=== PATIENT | male | born 1945 | race Caucasian/White ===

== ENCOUNTER 2016-11-11 06:48 | Day surgery (SDC) | payer MEDICARE ==
--- NOTE | 2016-11-08 11:45 | HP ---
ADMISSION DIAGNOSIS: Dysphagia. ANTICIPATED PROCEDURE: EGD, possible dilatation. PAST MEDICAL HISTORY: ALLERGIES: None. MEDICATIONS: Cymbalta, Bumex, lisinopril, prednisone, Zantac. SURGERIES: None recent. REVIEW OF SYSTEMS: Diabetes, heart stents, half of the right lung was removed. Neuropathy. SOCIAL HISTORY: Negative. FAMILY HISTORY: Negative. PHYSICAL EXAMINATION: VITAL SIGNS: Normal. CHEST: Clear. COR: Regular. ABDOMEN: No palpate organomegaly or mass. IMPRESSION: Dysphagia. PLAN: EGD.
[2016-11-11] MEDS ORDERED: DEMEROL 50 MG IJ ONE (06:49)
[2016-11-11] MEDS ORDERED: VERSED 5 MG/5 ML IV ONE (06:49)
[2016-11-11] MEDS ORDERED: Sodium Chloride 0.9% 1000 ML 1,000 ML IV SCH (07:15)
[2016-11-11 07:20] VITALS: BP 132/78; PULSE 73; O2SAT 100
[2016-11-11] MEDS ORDERED: Sodium Chloride 0.9% 10 ML FLUSH Syringe IV PRN (14:54)
--- NOTE | 2016-11-12 07:49 | OP ---
SURGERY DATE/TIME: 11/11/2016917 PREOPERATIVE DIAGNOSIS: Dysphagia. POSTOPERATIVE DIAGNOSIS: Stricture. PROCEDURE: EGD with dilatation. SURGEON: Juan Jose Pete M.D. ANESTHESIA: IVS. COMPLICATIONS: None. CONDITION: Stable. INDICATION: The patient presents with symptoms of dysphagia. DESCRIPTION OF PROCEDURE: Taken to the endoscopy suite. Left lateral decubitus position. Satisfactory sedation provided. At this time the scope introduced. Esophagus is normal down to gastroesophageal junction. There was a size 40 stricture. Fundus, body, antrum satisfactory. Pylorus satisfactory. Duodenal bulb satisfactory. Scope withdrawn. An 18 balloon was placed. It was insufflated to first level and then second level. It seemed to stretch out to 50. It looked nice. The scope is withdrawn. The patient tolerated the procedure satisfactory.
== END 2016-11-11 11:10 | disposition home or self-care (01) ==
LOC: SDC 06:48
PROVIDERS: ATTEND Surgery
PROC: 0D758ZZ Dilation of Esophagus, Via Natural or Artificial Opening Endoscopic (ICD-10-PCS; principal; 2016-11-11)
DX: K22.2 Esophageal obstruction (principal); E11.9 Type 2 diabetes mellitus without complications; Z98.61 Coronary angioplasty status; Z90.2 Acquired absence of lung [part of]; Z79.899 Other long term (current) drug therapy
CPT/HCPCS: 82962; 43249; C1726; J1642; J2175; J2250

== ENCOUNTER 2018-04-05 11:04 | Observation (INO) | payer MEDICARE ==
[2018-04-05] MEDS ORDERED: Sodium Chloride 0.9% 1000 ML 1,000 ML IV SCH (13:45)
[2018-04-05] MEDS: TORAdol 30 mg Injection IV PRN ×2 (13:52→22:16)
[2018-04-05] MEDS: Neurontin 400 MG PO SCH ×2 (15:20→22:15)
--- NOTE | 2018-04-05 15:30 | XRAY ---
Indication: Intractable back pain. Status post fall March 18, 2018. Multiple contiguous axial images obtained through the lumbar spine. Sagittal and coronal reformatted images obtained. Comparison: None Images through the L4-S1 levels slightly degraded by motion artifact. Axial images through the J19-C9-D4 level negative for large disc herniation, spinal canal, or foraminal stenosis. Facets are symmetric. At the L2-L3-L4 levels, there is bilateral foraminal narrowing due to mild broad-based disc bulge. No large central disc herniation or spinal canal stenosis. Facets are symmetric with mild bilateral degenerative facet arthropathy. At the L4-L5 level, there is spinal canal and bilateral foraminal stenosis due to combination of moderate annular disc bulge and moderate bilateral degenerative facet and ligamentum flavum hypertrophy. Mean AP thecal sac diameter is approximately 6 mm. At the L5-S1 level, there is minimal broad-based central disc bulge without spinal canal or foraminal compromise. Mild bilateral degenerative facet hypertrophy. Sagittal and coronal reformatted images demonstrates normal alignment with vertebral body heights and disc spaces maintained. Small superior T11 and L3 Schmorl nodes. Visualized noncontrasted soft tissues demonstrates moderate scattered aortoiliac calcifications. Partially visualized right lung base consolidation presumed effusion. Impression: 1. Multilevel degenerative disc disease as detailed. Greatest extent at the L4-L5 level where there is spinal canal stenosis due to combination of annular disc bulge and degenerative facet/ligament flavum hypertrophy. 2. Negative acute fracture/subluxation. 3. T11 and L3 Schmorl nodes. 4. Incompletely visualized right lung effusion. CT DI 70.97
[2018-04-05] MEDS: Advair Hfa 115/21 Common canister IH SCH (17:18)
[2018-04-05] MEDS ORDERED: NON-FORMULARY ITEM (Pravastatin Sodium [Pravastatin Sodium] 40 MG) PO SCH (22:00)
[2018-04-05] MEDS ORDERED: ZOCOR 20MG PO SCH (22:00)
[2018-04-05] MEDS ORDERED: NON-FORMULARY ITEM (Buspirone Hcl [Buspar] 10 MG) PO SCH (22:00)
[2018-04-05] MEDS ORDERED: INSULIN DETEMIR 50 UNIT SQ SCH (22:00)
[2018-04-05] MEDS ORDERED: NON-FORMULARY ITEM (Duloxetine Hcl [Cymbalta] 60 MG) PO SCH (22:00)
[2018-04-05] MEDS: Lantus Insulin SQ SCH (22:15)
[2018-04-05] MEDS: Pepcid 20 MG PO SCH (22:15)
[2018-04-05] MEDS: BUSPAR 5 MG PO SCH (22:15)
[2018-04-05] MEDS: Coreg 6.25 MG PO SCH (22:15)
[2018-04-05] MEDS: Cymbalta 30 MG Capsule PO SCH (22:15)
--- NOTE | 2018-04-05 22:43 | PCM.HP ---
History of Present Illness - Chief Complaint Chief Complaint: intractable back pain, right sided chest wall pain for 3 days History of Present Illness: is a 73 year old male c/o right side chest pain and intractable back pain. - Review of Systems Constitutional: No Fever, No Chills Eyes: No Symptoms Ears, Nose, & Throat: No Symptoms Respiratory: No Cough, No Short Of Breath Cardiac: No Chest Pain, No Edema, No Syncope Abdominal/Gastrointestinal: No Abdominal Pain, No Nausea, No Vomiting, No Diarrhea Genitourinary Symptoms: No Dysuria Musculoskeletal: Arthralgias, Back Pain, Joint Pain, No Neck Pain Skin: No Rash Neurological: No Dizziness, No Focal Weakness, No Sensory Changes Psychological: No Symptoms Endocrine: No Symptoms Hematologic/Lymphatic: No Symptoms Immunological/Allergic: No Symptoms Medications & Allergies Home Medications: Home Medication List Aspirin 81 mg PO UD 03/03/15 [History Confirmed 04/05/18] Bumetanide 1 mg [Bumex 1 mg] 1 mg PO QAM 03/03/15 [History Confirmed 04/05] Carvedilol 6.25 mg [Coreg 6.25 MG] 6.25 mg PO BID 03/03/15 [History Confirmed 04/05/18] Fentanyl 75Mcg Patch [Duragesic 75 MCG Patch] 75 mcg .ROUTE Q72H 03/03/15 [History Confirmed 04/05/18] Ferrous Fumarate 324 mg PO DAILY 03/03/15 [History Confirmed 04/05/18] Fluticasone/Salmeterol 115/21* [Advair Hfa 115/21 Mcg Inhaler] 21 mcg PO BID 03/03/15 [History Confirmed 04/05/18] Gabapentin 400 mg [Neurontin 400 MG] 800 mg PO TID 03/03/15 [History Confirmed 04/05/18] Insulin Detemir [Levemir Flexpen] 50 units SQ BID 03/03/15 [History Confirmed ] Lisinopril 10 mg [Zestril 10 MG] 5 mg PO UD 03/03/15 [History Confirmed ] Pravastatin Sodium 40 mg PO HS 03/03/15 [History Confirmed 04/05/18] Prednisone 10 mg [Deltasone 10 mg] 10 mg PO DAILY 03/03/15 [History Confirmed 04/05/18] Ranitidine HCl [Zantac] 150 mg PO BID 03/03/15 [History Confirmed 04/05/18] Buspirone HCl [Buspar] 10 mg PO BID 11/03/16 [History Confirmed 04/05/18] Duloxetine HCl [Cymbalta] 60 mg PO BID 11/03/16 [History Confirmed 04/05/18] Docusate Sodium 100 mg [Colace 100 MG] 100 mg PO DAILY 04/05/18 [History Confirmed 04/05/18] Ketorolac Tromethamine [Toradol] 10 mg PO QID #20 tablet 04/06/18 [Rx] Allergies/Adverse Reactions: Allergies Allergy/AdvReac Type Severity Reaction Status Date / Time Penicillins Allergy Unknown Verified 11/11/16 07:20 - Past Medical History Past Medical History: Yes Neurological History: TIA ENT History: No Pertinent History Cardiac History: Congestive Heart Failure Respiratory History: CHF, COPD, Emphysema, Lung Cancer Endocrine Medical History: Diabetes Type II Musculoskelatal History: Arthritis, Degenerative Disk Disease GI Medical History: Esophageal Disorder, GERD, Hernia History: No Pertinent History Pyscho-Social History: Anxiety, Depression Male Reproductive Disorders: No Pertinent History Comment: 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 - Past Surgical History Past Surgical History: Yes Neuro Surgical History: No Pertinent History Cardiac History: Cardiac Stent Respiratory Surgery: Lobectomy GI Surgical History: Cholecystectomy Genitourinary Surgical Hx: No Pertinent History Musculskeletal Surgical Hx: No Pertinent History Male Surgical History: No Pertinent History Other Surgical History: hx of multiple i & D to buttocks - Social History Smoking Status: Former smoker How long have you smoked: 45 YEARS Exposure to second hand smoke: Yes Alcohol: None Drug Use: none Significant Family History: heart disease - Physical Exam Vital Signs: Vital Signs - 24 hr Temp Pulse Resp BP Pulse Ox 04/05/18 20:00 98.5 F 92 H 18 142/71 94 L 04/05/18 18:50 98 04/05/18 17:21 89 18 98 04/05/18 16:00 98.5 F 85 18 117/58 98 04/05/18 12:09 98.4 F 93 H 20 146/80 96 04/05/18 12:05 96 Oxygen-Last 24 hours O2 Percentage 2 Liters = 28% O2 Percentage 2 Liters = 28% O2 Percentage 2 Liters = 28% General Appearance: no apparent distress, alert Neurologic Exam: alert, oriented x 3, cooperative, normal mood/affect, nml cerebellar function, nml station & gait, sensation nml, No motor deficits Eye Exam: PERRL/EOMI, eyes nml inspection Ears, Nose, Throat Exam: normal ENT inspection, TMs normal, pharynx normal, moist mucous membranes Neck Exam: normal inspection, non-tender, supple, full range of motion Respiratory Exam: normal breath sounds, lungs clear, No respiratory distress Cardiovascular Exam: regular rate/rhythm, normal heart sounds, normal peripheral pulses Gastrointestinal/Abdomen Exam: soft, normal bowel sounds, No tenderness, No mass Back Exam: normal inspection, normal range of motion, No CVA tenderness, No vertebral tenderness Extremity Exam: normal inspection, normal range of motion, pelvis stable Skin Exam: normal color, warm, dry, No rash Lymphatic Exam: No adenopathy Results - Labs Lab/Micro Results: Accuchecks Date 04/05/18 Time 16:30 Accucheck Value: 191 Lab Results-Last 24 Hours 04/05/18 Range/Units 13:20 Hemoglobin A1c 6.98 H (4.5-6.0) % Accuchecks Date 04/05/18 Time 16:30 Accucheck Value: 191 - Radiology Impressions Radiology Exams & Impressions: Radiology Procedures Category Date Time Status LUMBAR SPINE W/O [CT] Urgent Exams 04/05/18 13:00 Completed - Other Procedures and Tests Respiratory Therapy 04/05/18 12:14 Oxygen NASAL CANNULA 2.5 lpm 04/05/18 12:15 Respiratory Therapy Assessment DAILY Assessment/Plan (1) Intractable low back pain Status: Acute Assessment & Plan: Last Vital Signs Temp 98.5 F 04/05/18 20:00 Pulse 92 H 04/05/18 20:00 Resp 18 04/05/18 20:00 BP 142/71 04/05/18 20:00 Pulse Ox 94 L 04/05/18 20:00 Allergies Penicillins Allergy (Unknown, Verified 11/11/16 07:20) Active Medications Aspirin (Ecotrin 81 Mg) 81 mg PO [facility] Stop: 05/07/18 09:59 Bumetanide (Bumex 1 Mg) 1 mg PO QAM [facility] Stop: 05/06/18 09:59 Buspirone HCl (Buspar 5 Mg) 10 mg PO BID [facility] Stop: 05/05/18 21:59 Last Admin: 04/05/18 22:15 Dose: 10 mg Carvedilol (Coreg 6.25 Mg) 6.25 mg PO BID [facility] Stop: 05/05/18 21:59 Last Admin: 04/05/18 22:15 Dose: 6.25 mg Docusate Sodium (Colace 100 Mg) 100 mg PO DAILY [facility] Stop: 05/06/18 09:59 Duloxetine HCl (Cymbalta 30 Mg Capsule) 60 mg PO BID [facility] Stop: 05/05/18 21:59 Last Admin: 04/05/18 22:15 Dose: 60 mg Famotidine (Pepcid 20 Mg) 20 mg PO BID [facility] Stop: 05/05/18 21:59 Last Admin: 04/05/18 22:15 Dose: 20 mg Fentanyl (Duragesic 75 Mcg Patch) 75 mcg TOP Q72H [facility] Stop: 04/13/18 08:59 Ferrous Sulfate (Feosol 325 Mg) 325 mg PO DAILY [facility] Stop: 05/06/18 09:59 Gabapentin (Neurontin 400 Mg) 800 mg PO TID [facility] Stop: 05/05/18 14:59 Last Admin: 04/05/18 22:15 Dose: 800 mg Heparin Sodium (Beef Lung) (Heparin Lock Flush 100 Units/Ml 5ml Syringe) 500 units PORT FLUSH PRN PRN PRN Reason: IV PORT FLUSH Stop: 05/05/18 15:11 Sodium Chloride (Sodium Chloride 0.9% 1000 Ml) 1,000 mls @ 30 mls/hr IV .Q24H [facility] Stop: 05/05/18 13:44 Last Admin: 04/05/18 13:52 Dose: 30 mls/hr Insulin Glargine (Lantus Insulin) 50 unit SQ BID [facility] Stop: 05/05/18 21:59 Last Admin: 04/05/18 22:15 Dose: 50 unit Ketorolac Tromethamine (Toradol 30 Mg Injection) 30 mg IV Q8H PRN PRN Reason: PAIN Stop: 04/10/18 13:33 Last Admin: 04/05/18 22:16 Dose: 30 mg Lisinopril (Zestril 10 Mg) 5 mg PO QOD [facility] Stop: 05/06/18 09:59 Prednisone (Deltasone 10 Mg) 10 mg PO DAILY [facility] Stop: 05/06/18 09:59 Fluticasone/Salmeterol (Advair Hfa 115/21 Common Canister*) 2 puff IH BIDRT [facility] Stop: 05/05/18 18:59 Last Admin: 04/05/18 17:18 Dose: 2 puff Simvastatin (Zocor 20mg) 40 mg PO HS [facility] Stop: 05/05/18 21:59 Last Admin: 04/05/18 22:15 Dose: 40 mg Intake & Output 04/05/18 04/06/18 11:59 11:59 Intake Total 1574 Output Total 200 Balance 1374 Weight 98.8 kg Orders 04/05/18 11:39 Place in Observation ROUTINE 04/05/18 12:12 ACCUCHECK [Accucheck] ACHS 04/05/18 12:14 Oxygen NASAL CANNULA 2.5 lpm Pulse Oximetry .spot check 04/05/18 12:15 Respiratory Therapy Assessment DAILY 04/05/18 13:34 KETOROLAC trometh 30 mg Inj [TORAdol 30 mg Injection] 30 mg IV Q8H PRN 04/05/18 13:45 NaCl 0.9% 1000 ml [Sodium Chloride 0.9% 1000 ML] 1,000 ml IV 30 mls/hr 04/05/18 15:00 Gabapentin 400 mg [Neurontin 400 MG] 800 mg PO TID 04/05/18 15:12 Heparin Flush 500 units/5 ml [Heparin Lock Flush 100 Units/ml 5ml Syringe] 500 units PORT FLUSH PRN PRN 04/05/18 19:00 Fluticasone/Salmeterol 115/21 [Advair Hfa 115/21 Common canister*] 2 puff IH BIDRT 04/05/18 22:00 Buspirone HCl 5 mg [Buspar 5 mg] 10 mg PO BID Carvedilol 6.25 mg [Coreg 6.25 MG] 6.25 mg PO BID Duloxetine HCl 30 mg [Cymbalta 30 MG Capsule] 60 mg PO BID Famotidine 20 mg [Pepcid 20 MG] 20 mg PO BID Insulin Glargine [Lantus Insulin] 50 unit SQ BID Simvastatin 20Mg [Zocor 20Mg] 40 mg PO HS 04/05/18 Lunch 1800 Calorie ADA 04/06/18 10:00 Bumetanide 1 mg [Bumex 1 mg] 1 mg PO QAM Docusate Sodium 100 mg [Colace 100 MG] 100 mg PO DAILY Ferrous Sulfate 325 mg [Feosol 325 mg] 325 mg PO DAILY Lisinopril 10 mg [Zestril 10 MG] 5 mg PO QOD Prednisone 10 mg [Deltasone 10 mg] 10 mg PO DAILY 04/07/18 10:00 Aspirin EC 81 mg [Ecotrin 81 mg] 81 mg PO TuFr 04/08/18 09:00 Fentanyl 75Mcg Patch [Duragesic 75 MCG Patch] 75 mcg TOP Q72H Lab Tests 04/05/18 13:20 Hemoglobin A1c 6.98 H Code(s): M54.5 - LOW BACK PAIN (2) Chronic obstructive lung disease Status: Chronic Code(s): J44.9 - CHRONIC OBSTRUCTIVE PULMONARY DISEASE, UNSPECIFIED (3) Diabetes mellitus Status: Chronic Code(s): E11.9 - TYPE 2 DIABETES MELLITUS WITHOUT COMPLICATIONS
[2018-04-05] MEDS: MORPHINE SULFATE 4 MG INJ IV PRN (23:27)
[2018-04-06] MEDS: MORPHINE SULFATE 4 MG INJ IV PRN ×2 (04:59→08:55)
[2018-04-06] MEDS: Advair Hfa 115/21 Common canister IH SCH (05:05)
[2018-04-06] MEDS: TORAdol 30 mg Injection IV PRN (06:35)
[2018-04-06] MEDS: BUSPAR 5 MG PO SCH (08:51)
[2018-04-06] MEDS: Cymbalta 30 MG Capsule PO SCH (08:52)
[2018-04-06] MEDS: Coreg 6.25 MG PO SCH (08:52)
[2018-04-06] MEDS: Pepcid 20 MG PO SCH (08:52)
[2018-04-06] MEDS: Neurontin 400 MG PO SCH ×2 (08:53→15:12)
[2018-04-06] MEDS: Lantus Insulin SQ SCH (08:54)
[2018-04-06] MEDS ORDERED: Zestril 10 MG PO SCH (10:00)
[2018-04-06] MEDS ORDERED: FEOSOL 325 MG PO SCH (10:00)
[2018-04-06] MEDS ORDERED: DELTASONE 10 MG PO SCH (10:00)
[2018-04-06] MEDS ORDERED: FERROUS FUMARATE 324 MG PO SCH (10:00)
[2018-04-06] MEDS ORDERED: BUMEX 1 MG PO SCH (10:00)
[2018-04-06] MEDS ORDERED: Colace 100 MG PO SCH (10:00)
[2018-04-06 11:47] VITALS: BP 131/63; PULSE 86; O2SAT 100
[2018-04-06] MEDS ORDERED: TORAdol 30 mg Injection IV SCH (14:00)
[2018-04-07] MEDS ORDERED: ECOTRIN 81 MG PO SCH (10:00)
[2018-04-08] MEDS ORDERED: Duragesic 75 MCG Patch TOP SCH (09:00)
== END 2018-04-06 15:55 | disposition home or self-care (01) ==
LOC: MED SURG 11:39
PROVIDERS: ADMIT General Practice; ATTEND General Practice
DX: M54.5 Low back pain (principal); J44.9 Chronic obstructive pulmonary disease, unspecified; E11.9 Type 2 diabetes mellitus without complications
CPT/HCPCS: 36415; 72131; 82962; 83036; 94640; 94760; G0378; J1642; J1885; J2270; A9270-GY

== ENCOUNTER 2019-01-03 09:31 | Day surgery (SDC) | payer MEDICARE ==
[2012-02-05 14:53] VITALS: BP 114/73
[2019-01-03] MEDS ORDERED: Xylocaine 1% Vial 30 ML PF IJ ONE (09:32)
[2019-01-03] MEDS ORDERED: Sodium Chloride 0.9(Preservative Free) 10 ML IJ ONE (09:32)
[2019-01-03] MEDS ORDERED: Depo-Medrol 40 MG/ML IM ONE (09:32)
[2019-01-03] MEDS ORDERED: Ketamine HCl 50 MG/ML ONE (11:24)
[2019-01-03] MEDS ORDERED: DIPRIVAN 200 MG/20 ML IV ONE (11:24)
--- NOTE | 2019-01-03 13:34 | XRAY ---
Indication: Thoracic LUCILLE. Intraoperative fluoroscopy was provided for 32 seconds. 2 digital spot images submitted for interpretation demonstrates midline needle tip projecting just posterior to unknown thoracic segment. Small amount of contrast injected for needle tip placement. Correlate with intraoperative findings/report.
--- NOTE | 2019-01-03 14:27 | XRAY ---
32 seconds of fluoroscopy was used in surgery for a thoracic LUCILLE.
[2019-01-03] MEDS ORDERED: Lactated Ringers 1,000 ML IV ONE (14:48)
== END 2019-01-03 12:00 | disposition home or self-care (01) ==
LOC: SDC-PAIN 09:31
PROVIDERS: ATTEND Psychiatry & Neurology Pain Medicine
DX: M54.12 Radiculopathy, cervical region (principal); E11.9 Type 2 diabetes mellitus without complications; I10 Essential (primary) hypertension; J44.9 Chronic obstructive pulmonary disease, unspecified; K44.9 Diaphragmatic hernia without obstruction or gangrene; G47.30 Sleep apnea, unspecified; Z85.118 Personal history of other malignant neoplasm of bronchus and lung; Z79.899 Other long term (current) drug therapy
CPT/HCPCS: 62321; 72072; 77003; 82962; J1030; J1642; J2001; J2704; Q9966

== ENCOUNTER 2019-01-24 10:27 | Day surgery (SDC) | payer MEDICARE ==
[2012-02-05 14:53] VITALS: BP 114/73
[2019-01-24] MEDS ORDERED: Depo-Medrol 40 MG/ML IM ONE (10:28)
[2019-01-24] MEDS ORDERED: XYLOCAINE 1% HCL 20 ML MDV IJ ONE (10:28)
[2019-01-24] MEDS ORDERED: Xylocaine-Mpf 2% 5 Ml Vial IJ ONE (10:28)
[2019-01-24] MEDS ORDERED: DIPRIVAN 200 MG/20 ML IV ONE (11:52)
[2019-01-24] MEDS ORDERED: Ketamine HCl 50 MG/ML ONE (11:53)
--- NOTE | 2019-01-24 13:09 | XRAY ---
Indication: Bilateral L3-S1 MBB. Intraoperative fluoroscopy was provided for 8 seconds. Single digital spot image submitted for interpretation demonstrates posterior needle tips projecting over the expected course of the left and right L3-S1 nerve roots. Correlate with intraoperative findings/report.
--- NOTE | 2019-01-24 13:11 | XRAY ---
8 seconds fluoroscopy time in surgery for bilateral L3-S1 MBB.
[2019-01-24] MEDS ORDERED: Lactated Ringers 1,000 ML IV ONE (14:33)
== END 2019-01-24 12:05 | disposition home or self-care (01) ==
LOC: SDC-PAIN 10:27
PROVIDERS: ATTEND Psychiatry & Neurology Pain Medicine
DX: M47.816 Spondylosis without myelopathy or radiculopathy, lumbar region (principal); E11.9 Type 2 diabetes mellitus without complications; I10 Essential (primary) hypertension; J44.9 Chronic obstructive pulmonary disease, unspecified; G47.30 Sleep apnea, unspecified; K44.9 Diaphragmatic hernia without obstruction or gangrene; Z85.118 Personal history of other malignant neoplasm of bronchus and lung; Z79.899 Other long term (current) drug therapy
CPT/HCPCS: 64493; 64494; 64495; 72020; 77002; 82962; J1030; J1642; J2704

== ENCOUNTER 2019-02-21 07:31 | Day surgery (SDC) | payer MEDICARE ==
[2012-02-05 14:53] VITALS: BP 114/73
[2019-02-21] MEDS ORDERED: Marcaine 0.5% SDV 10 ML IJ ONE (07:32)
[2019-02-21] MEDS ORDERED: Depo-Medrol 40 MG/ML IM ONE (07:32)
[2019-02-21] MEDS ORDERED: DIPRIVAN 200 MG/20 ML IV ONE (09:51)
[2019-02-21] MEDS ORDERED: Ketamine HCl 50 MG/ML ONE (09:52)
--- NOTE | 2019-02-21 11:10 | XRAY ---
Indication: Bilateral L3-S1 MBB. Intraoperative fluoroscopy was provided for 14 seconds. Single digital spot image submitted for interpretation demonstrates posterior needle tips projecting over the expected course of the left and right L3-S1 nerve roots. Correlate with intraoperative findings/report.
--- NOTE | 2019-02-21 12:37 | XRAY ---
14 seconds fluoroscopy time in surgery for bilateral L3-S1 MBB.
[2019-02-21] MEDS ORDERED: Lactated Ringers 1,000 ML IV ONE (16:16)
== END 2019-02-21 10:15 | disposition home or self-care (01) ==
LOC: SDC-PAIN 07:31
PROVIDERS: ATTEND Psychiatry & Neurology Pain Medicine
DX: M47.816 Spondylosis without myelopathy or radiculopathy, lumbar region (principal); E11.9 Type 2 diabetes mellitus without complications; I10 Essential (primary) hypertension; J44.9 Chronic obstructive pulmonary disease, unspecified; G47.30 Sleep apnea, unspecified; K44.9 Diaphragmatic hernia without obstruction or gangrene; F41.8 Other specified anxiety disorders; Z79.899 Other long term (current) drug therapy
CPT/HCPCS: 72020; 77002; J1030; J1642; J2704

== ENCOUNTER → 2019-03-21 | Day surgery (SDC) | payer MEDICARE ==
[2012-02-05 14:53] VITALS: BP 114/73
== END | disposition home or self-care (01) ==
LOC: SDC-PAIN 11:07
PROVIDERS: ATTEND Psychiatry & Neurology Pain Medicine
DX: Z53.09 Procedure and treatment not carried out because of other contraindication (principal)

== ENCOUNTER 2019-04-18 07:41 | Day surgery (SDC) | payer MEDICARE ==
[2012-02-05 14:53] VITALS: BP 114/73
[2019-04-18] MEDS ORDERED: Xylocaine 1% Vial 30 ML PF IJ ONE (07:42)
[2019-04-18] MEDS ORDERED: Depo-Medrol 40 MG/ML IM ONE (07:42)
[2019-04-18] MEDS ORDERED: Marcaine 0.5% SDV 10 ML IJ ONE (07:42)
[2019-04-18] MEDS ORDERED: DIPRIVAN 200 MG/20 ML IV ONE (08:07)
[2019-04-18] MEDS ORDERED: Ketamine HCl 50 MG/ML ONE (08:11)
--- NOTE | 2019-04-18 10:54 | XRAY ---
Indication: Left L4-S1 RFA. Intraoperative fluoroscopy was provided for 16 seconds. 3 digital spot images submitted for interpretation demonstrates posterior needle tips projecting over the expected course of the left L4-S1 nerve roots. Correlate with intraoperative findings/report.
--- NOTE | 2019-04-18 11:06 | XRAY ---
16 seconds of fluoroscopy was used in surgery for a left L4-L5 and L5-S1 RFA.
[2019-04-18] MEDS ORDERED: Lactated Ringers 1,000 ML IV ONE (15:26)
== END 2019-04-18 09:45 | disposition home or self-care (01) ==
LOC: SDC-PAIN 07:41
PROVIDERS: ATTEND Psychiatry & Neurology Pain Medicine
DX: M47.816 Spondylosis without myelopathy or radiculopathy, lumbar region (principal); E11.9 Type 2 diabetes mellitus without complications; I10 Essential (primary) hypertension; J44.9 Chronic obstructive pulmonary disease, unspecified; K44.9 Diaphragmatic hernia without obstruction or gangrene; G47.30 Sleep apnea, unspecified; F41.8 Other specified anxiety disorders; Z79.899 Other long term (current) drug therapy; Z85.118 Personal history of other malignant neoplasm of bronchus and lung
CPT/HCPCS: 64635; 64636; 72100; 77002; 82962; 99100; J1030; J1642; J2001; J2704

== ENCOUNTER 2019-05-02 07:42 | Day surgery (SDC) | payer MEDICARE ==
[2012-02-05 14:53] VITALS: BP 114/73
[2019-05-02] MEDS ORDERED: Marcaine 0.5% SDV 10 ML IJ ONE (07:43)
[2019-05-02] MEDS ORDERED: Xylocaine 1% Vial 30 ML PF IJ ONE (07:43)
[2019-05-02] MEDS ORDERED: Depo-Medrol 40 MG/ML IM ONE (07:43)
[2019-05-02] MEDS ORDERED: DIPRIVAN 200 MG/20 ML IV ONE (09:01)
[2019-05-02] MEDS ORDERED: Ketamine HCl 50 MG/ML ONE (09:02)
--- NOTE | 2019-05-02 12:01 | XRAY ---
Indication: Right L4-S1 RFA. Intraoperative fluoroscopy was provided for 22 seconds. 3 digital spot images submitted for interpretation demonstrates posterior needle tips projecting over the expected course of the right L4-S1 nerve root. Correlate with intraoperative findings/report.
--- NOTE | 2019-05-02 12:24 | XRAY ---
22 seconds fluoroscopy time in surgery for right L4-S1 transforaminal LUCILLE.
[2019-05-02] MEDS ORDERED: Lactated Ringers 1,000 ML IV ONE (15:38)
== END 2019-05-02 09:35 | disposition home or self-care (01) ==
LOC: SDC-PAIN 07:42
PROVIDERS: ATTEND Psychiatry & Neurology Pain Medicine
DX: M47.816 Spondylosis without myelopathy or radiculopathy, lumbar region (principal); M47.817 Spondylosis without myelopathy or radiculopathy, lumbosacral region; E11.9 Type 2 diabetes mellitus without complications; I10 Essential (primary) hypertension; J44.9 Chronic obstructive pulmonary disease, unspecified; K44.9 Diaphragmatic hernia without obstruction or gangrene; G47.30 Sleep apnea, unspecified; Z79.899 Other long term (current) drug therapy
CPT/HCPCS: 64635; 64636; 72100; 77002; 82962; 99100; J1030; J1642; J2001; J2704

== ENCOUNTER 2019-05-30 07:42 | Day surgery (SDC) | payer MEDICARE ==
[2012-02-05 14:53] VITALS: BP 114/73
[2019-05-30] MEDS ORDERED: Xylocaine-Mpf 2% 5 Ml Vial IJ ONE (07:43)
[2019-05-30] MEDS ORDERED: Depo-Medrol 40 MG/ML IM ONE (07:43)
[2019-05-30] MEDS ORDERED: DIPRIVAN 200 MG/20 ML IV ONE (09:25)
[2019-05-30] MEDS ORDERED: Ketamine HCl 50 MG/ML ONE (09:25)
--- NOTE | 2019-05-30 10:40 | XRAY ---
Indication: Bilateral T9-T12 MBB. Intraoperative fluoroscopy was provided for 8 seconds. Single digital spot image submitted for interpretation demonstrates posterior needle tips projecting over the expected course of the left and right T9-T12 nerve roots. Correlate with intraoperative findings/report.
--- NOTE | 2019-05-30 10:44 | XRAY ---
8 seconds fluoroscopy time in surgery for bilateral T9-T12 MBB.
[2019-05-30] MEDS ORDERED: Lactated Ringers 1,000 ML IV ONE (13:37)
== END 2019-05-30 09:55 | disposition home or self-care (01) ==
LOC: SDC-PAIN 07:42
PROVIDERS: ATTEND Psychiatry & Neurology Pain Medicine
DX: M47.814 Spondylosis without myelopathy or radiculopathy, thoracic region (principal); E11.9 Type 2 diabetes mellitus without complications; I10 Essential (primary) hypertension; J44.9 Chronic obstructive pulmonary disease, unspecified; Z85.118 Personal history of other malignant neoplasm of bronchus and lung; G47.30 Sleep apnea, unspecified; K44.9 Diaphragmatic hernia without obstruction or gangrene; Z79.899 Other long term (current) drug therapy
CPT/HCPCS: 64490; 64491; 64492; 72020; 77002; 82962; J1030; J1642; J2704

== ENCOUNTER 2019-08-15 08:51 | Day surgery (SDC) | payer MEDICARE ==
[2012-02-05 14:53] VITALS: BP 114/73
[2019-08-15] MEDS ORDERED: Depo-Medrol 40 MG/ML IM ONE (08:52)
[2019-08-15] MEDS ORDERED: Marcaine 0.5% SDV 10 ML IJ ONE (08:52)
[2019-08-15] MEDS ORDERED: DIPRIVAN 200 MG/20 ML IV ONE (10:42)
[2019-08-15] MEDS ORDERED: Ketamine HCl 50 MG/ML ONE (10:42)
--- NOTE | 2019-08-15 11:52 | XRAY ---
Indication: Bilateral T9-T12 MBB. Intraoperative fluoroscopy was provided for 9 seconds. Single digital spot image submitted for interpretation demonstrates posterior needle tips projecting over the expected course the left and right T9-T12 nerve roots. Correlate with intraoperative findings/report.
--- NOTE | 2019-08-15 11:57 | XRAY ---
9 seconds fluoroscopy time in surgery for bilateral T9-T12 MBB.
[2019-08-15] MEDS ORDERED: Lactated Ringers 1,000 ML IV ONE (14:31)
== END 2019-08-15 11:08 | disposition home or self-care (01) ==
LOC: SDC-PAIN 08:51
PROVIDERS: ATTEND Psychiatry & Neurology Pain Medicine
DX: M47.814 Spondylosis without myelopathy or radiculopathy, thoracic region (principal); E11.9 Type 2 diabetes mellitus without complications; I10 Essential (primary) hypertension; J44.9 Chronic obstructive pulmonary disease, unspecified; G47.30 Sleep apnea, unspecified; K44.9 Diaphragmatic hernia without obstruction or gangrene; Z85.118 Personal history of other malignant neoplasm of bronchus and lung
CPT/HCPCS: 64490; 64491; 64492; 72020; 77002; 82962; J1030; J1642; J2704

== ENCOUNTER 2019-09-26 10:24 | Day surgery (SDC) | payer MEDICARE ==
[2012-02-05 14:53] VITALS: BP 114/73
[2019-09-26] MEDS ORDERED: Depo-Medrol 40 MG/ML IM ONE (10:25)
[2019-09-26] MEDS ORDERED: Xylocaine 1% Vial 30 ML PF IJ ONE (10:25)
[2019-09-26] MEDS ORDERED: Marcaine 0.5% SDV 10 ML IM ONE (10:25)
[2019-09-26] MEDS ORDERED: Ketamine HCl 50 MG/ML ONE (11:22)
[2019-09-26] MEDS ORDERED: DIPRIVAN 200 MG/20 ML IV ONE (11:22)
--- NOTE | 2019-09-26 12:35 | XRAY ---
Indication: Left T9-T12 RFA. Intraoperative fluoroscopy was provided for 32 seconds. 3 digital spot images submitted for interpretation demonstrates posterior needle tips projecting over the presumed left T9-T12 nerve roots. Correlate with intraoperative findings/report.
--- NOTE | 2019-09-26 12:37 | XRAY ---
32 seconds fluoroscopy time in surgery for left T9-T12 RFA.
[2019-09-26] MEDS ORDERED: Lactated Ringers 1,000 ML IV ONE (14:53)
== END 2019-09-26 11:55 | disposition home or self-care (01) ==
LOC: SDC-PAIN 10:24
PROVIDERS: ATTEND Psychiatry & Neurology Pain Medicine
DX: M47.814 Spondylosis without myelopathy or radiculopathy, thoracic region (principal); E11.9 Type 2 diabetes mellitus without complications; Z79.4 Long term (current) use of insulin; I10 Essential (primary) hypertension; Z85.118 Personal history of other malignant neoplasm of bronchus and lung; G47.30 Sleep apnea, unspecified; Z79.899 Other long term (current) drug therapy
CPT/HCPCS: 64633; 64634; 72072; 77002; 82962; 99100; J1030; J1642; J2001; J2704

== ENCOUNTER 2020-07-23 08:11 | Day surgery (SDC) | payer MEDICARE ==
[2012-02-05 14:53] VITALS: BP 114/73
[2020-07-23] MEDS ORDERED: BUPIVACAINE 0.5% VIAL IJ ONE (08:12)
[2020-07-23] MEDS ORDERED: D50W 50 ml Abboject IV ONE (08:12)
[2020-07-23] MEDS ORDERED: Depo-Medrol 40 MG/ML IM ONE (08:12)
[2020-07-23] MEDS ORDERED: DIPRIVAN 200 MG/20 ML IV ONE (09:55)
--- NOTE | 2020-07-23 11:00 | XRAY ---
Indication: Bilateral L4-S1 MBB. Intraoperative fluoroscopy provided for 10 seconds. Single digital spot image submitted for interpretation demonstrates posterior needle tips projecting over the expected left and right L4-S1 nerve roots. Correlate with intraoperative findings/report.
--- NOTE | 2020-07-23 11:34 | XRAY ---
10 seconds fluoroscopy time in surgery for bilateral L4-S1 MBB.
[2020-07-23] MEDS ORDERED: Lactated Ringers 1,000 ML IV ONE (16:28)
== END 2020-07-23 10:24 | disposition home or self-care (01) ==
LOC: SDC-PAIN 08:11
PROVIDERS: ATTEND Psychiatry & Neurology Pain Medicine
DX: M47.816 Spondylosis without myelopathy or radiculopathy, lumbar region (principal); E11.9 Type 2 diabetes mellitus without complications; Z79.4 Long term (current) use of insulin; I10 Essential (primary) hypertension; J44.9 Chronic obstructive pulmonary disease, unspecified; K44.9 Diaphragmatic hernia without obstruction or gangrene; G47.30 Sleep apnea, unspecified; Z85.118 Personal history of other malignant neoplasm of bronchus and lung; Z79.899 Other long term (current) drug therapy
CPT/HCPCS: 64493; 64494; 72020; 77002; 82947; J1030; J1642; J2704

== ENCOUNTER 2020-08-13 08:43 | Day surgery (SDC) | payer MEDICARE ==
[2012-02-05 14:53] VITALS: BP 114/73
[2020-08-13] MEDS ORDERED: Depo-Medrol 40 MG/ML IM ONE (08:44)
[2020-08-13] MEDS ORDERED: BUPIVACAINE 0.5% VIAL IJ ONE (08:44)
[2020-08-13] MEDS ORDERED: DIPRIVAN 200 MG/20 ML IV ONE (10:12)
[2020-08-13] MEDS ORDERED: Lactated Ringers 1,000 ML IV ONE (16:29)
--- NOTE | 2020-08-13 17:39 | XRAY ---
9 seconds of fluoroscopy was used in surgery for a bilateral L4-L5, L5-S1 MBB.
== END 2020-08-13 10:38 | disposition home or self-care (01) ==
LOC: SDC-PAIN 08:43
PROVIDERS: ATTEND Psychiatry & Neurology Pain Medicine
DX: M47.816 Spondylosis without myelopathy or radiculopathy, lumbar region (principal); E11.9 Type 2 diabetes mellitus without complications; Z79.4 Long term (current) use of insulin; I10 Essential (primary) hypertension; J44.9 Chronic obstructive pulmonary disease, unspecified; K44.9 Diaphragmatic hernia without obstruction or gangrene; G47.30 Sleep apnea, unspecified; Z85.118 Personal history of other malignant neoplasm of bronchus and lung; Z79.899 Other long term (current) drug therapy
CPT/HCPCS: 64493; 64494; 72020; 77002; 82947; J1030; J1642; J2704

== ENCOUNTER 2020-09-03 08:05 | Day surgery (SDC) | payer MEDICARE ==
[2012-02-05 14:53] VITALS: BP 114/73
[2020-09-03] MEDS ORDERED: BUPIVACAINE 0.5% VIAL IJ ONE (08:06)
[2020-09-03] MEDS ORDERED: Xylocaine 1% Vial 30 ML PF IJ ONE (08:06)
[2020-09-03] MEDS ORDERED: Depo-Medrol 40 MG/ML IM ONE (08:06)
[2020-09-03] MEDS ORDERED: DIPRIVAN 200 MG/20 ML IV ONE (09:11)
[2020-09-03] MEDS ORDERED: D50W 50 ml Abboject IV ONE (09:15)
[2020-09-03] MEDS ORDERED: Dextrose 5%/Water IV Soln. 50 ML 50 ML IV ONE (09:30)
--- NOTE | 2020-09-03 10:40 | XRAY ---
Indication: Left L4-S1 RFA. Intraoperative fluoroscopy provided for 37 seconds. 3 digital spot images submitted for interpretation demonstrates posterior needle tips projecting over the expected left L4-S1 nerve roots. Correlate with intraoperative findings/report.
--- NOTE | 2020-09-03 12:12 | XRAY ---
37 seconds fluoroscopy time in surgery for left L4-S1 RFA.
[2020-09-03] MEDS ORDERED: Lactated Ringers 1,000 ML IV ONE (15:54)
== END 2020-09-03 09:55 | disposition home or self-care (01) ==
LOC: SDC-PAIN 08:05
PROVIDERS: ATTEND Psychiatry & Neurology Pain Medicine
DX: M47.816 Spondylosis without myelopathy or radiculopathy, lumbar region (principal); E11.9 Type 2 diabetes mellitus without complications; I10 Essential (primary) hypertension; I50.9 Heart failure, unspecified; J44.9 Chronic obstructive pulmonary disease, unspecified; M19.90 Unspecified osteoarthritis, unspecified site; G47.30 Sleep apnea, unspecified; C34.90 Malignant neoplasm of unspecified part of unspecified bronchus or lung; Z79.899 Other long term (current) drug therapy
CPT/HCPCS: 64635; 64636; 72100; 77002; 82947; 99100; J1030; J1642; J2001; J2704

== ENCOUNTER 2020-09-10 09:26 | Day surgery (SDC) | payer MEDICARE ==
[2012-02-05 14:53] VITALS: BP 114/73
[2020-09-10] MEDS ORDERED: Xylocaine 1% Vial 30 ML PF IJ ONE (09:27)
[2020-09-10] MEDS ORDERED: BUPIVACAINE 0.5% VIAL IJ ONE (09:27)
[2020-09-10] MEDS ORDERED: Depo-Medrol 40 MG/ML IM ONE (09:27)
[2020-09-10] MEDS ORDERED: DIPRIVAN 200 MG/20 ML IV ONE (10:31)
--- NOTE | 2020-09-10 11:29 | XRAY ---
Indication: Right L4-S1 RFA. Intraoperative fluoroscopy provided for 22 seconds. 2 digital spot images submitted for interpretation demonstrates posterior needle tips projecting over the expected right L4-S1 nerve roots. Correlate with intraoperative findings/report.
--- NOTE | 2020-09-10 13:01 | XRAY ---
22 seconds of fluoroscopy was used in surgery for a right L4-L5, L5-S1 RFA.
[2020-09-10] MEDS ORDERED: Lactated Ringers 1,000 ML IV ONE (15:40)
== END 2020-09-10 11:12 | disposition home or self-care (01) ==
LOC: SDC-PAIN 09:26
PROVIDERS: ATTEND Psychiatry & Neurology Pain Medicine
DX: M47.816 Spondylosis without myelopathy or radiculopathy, lumbar region (principal); F41.9 Anxiety disorder, unspecified; F32.9 Major depressive disorder, single episode, unspecified; M19.90 Unspecified osteoarthritis, unspecified site; E11.9 Type 2 diabetes mellitus without complications; I10 Essential (primary) hypertension; I50.9 Heart failure, unspecified; J44.9 Chronic obstructive pulmonary disease, unspecified; G47.30 Sleep apnea, unspecified; Z79.899 Other long term (current) drug therapy
CPT/HCPCS: 64635; 64636; 72100; 77002; 82947; 99100; J1030; J1642; J2001; J2704

== ENCOUNTER 2020-10-05 09:44 | Observation (INO) | payer MEDICARE ==
[2020-10-05] MEDS ORDERED: DUONEB 0.5-3 MG/3 ml Neb IH ONE ×2 (10:06→10:13)
--- NOTE | 2020-10-05 10:10 | ERPHSYRPT ---
- History of Present Illness Time Seen by Provider: 10/05/20 10:06 Source: patient, family Exam Limitations: no limitations Physician History: Pt is COPD pt with more acute SOB and now thinking pneumonia. also on lasix for heart. Timing/Duration: hour(s) Severity of Dyspnea-Max: severe Severity of Dyspnea-Current: severe Possible Cause: frequent episodes Associated Symptoms: constant, cough, fever Allergies/Adverse Reactions: Penicillins Allergy (Unknown, Verified 11/11/16 07:20) Home Medications: Aspirin 81 mg PO UD 03/03/15 [History] Bumetanide 1 mg [Bumex 1 mg] 1 mg PO QAM 03/03/15 [History] Carvedilol 6.25 mg [Coreg 6.25 MG] 6.25 mg PO BID 03/03/15 [History] Fentanyl 75Mcg Patch [Duragesic 75 MCG Patch] 75 mcg .ROUTE Q72H 03/03/15 [History] Ferrous Fumarate 324 mg PO DAILY 03/03/15 [History] Fluticasone/Salmeterol 115/21* [Advair Hfa 115/21 Mcg Inhaler] 21 mcg PO BID 03/03/15 [History] Gabapentin 400 mg [Neurontin 400 MG] 800 mg PO TID 03/03/15 [History] Insulin Detemir [Levemir Flexpen] 50 units SQ BID 03/03/15 [History] Lisinopril 10 mg [Zestril 10 MG] 5 mg PO UD 03/03/15 [History] Pravastatin Sodium 40 mg PO HS 03/03/15 [History] Prednisone 10 mg [Deltasone 10 mg] 10 mg PO DAILY 03/03/15 [History] Ranitidine HCl [Zantac] 150 mg PO BID 03/03/15 [History] Buspirone HCl [Buspar] 10 mg PO BID 11/03/16 [History] Duloxetine HCl [Cymbalta] 60 mg PO BID 11/03/16 [History] Docusate Sodium 100 mg [Colace 100 MG] 100 mg PO DAILY 04/05/18 [History] Hx Tetanus, Diphtheria Vaccination/Date Given: Yes Hx Influenza Vaccination/Date Given: Yes (2011) Hx Pneumococcal Vaccination/Date Given: Yes (2012) - Review of Systems Constitutional: Fever Eyes: No Symptoms Ears, Nose, & Throat: No Symptoms Respiratory: Dyspnea Abdominal/Gastrointestinal: No Symptoms Genitourinary Symptoms: No Symptoms Musculoskeletal: No Symptoms Skin: No Symptoms Neurological: No Symptoms Psychological: No Symptoms Endocrine: No Symptoms Hematologic/Lymphatic: No Symptoms Immunological/Allergic: No Symptoms - Past Medical History Pertinent Past Medical History: Yes Neurological History: TIA ENT History: No Pertinent History Cardiac History: Congestive Heart Failure Respiratory History: CHF, COPD, Emphysema, Lung Cancer Endocrine Medical History: Diabetes Type II Musculoskeletal History: Arthritis, Degenerative Disk Disease GI Medical History: Esophageal Disorder, GERD, Hernia History: No Pertinent History Psycho-Social History: Anxiety, Depression Male Reproductive Disorders: No Pertinent History Other Medical History: 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 - Past Surgical History Past Surgical History: Yes Neuro Surgical History: No Pertinent History Cardiac: Cardiac Stent Respiratory: Lobectomy Gastrointestinal: Cholecystectomy Genitourinary: No Pertinent History Musculoskeletal: No Pertinent History Male Surgical History: No Pertinent History Other Surgical History: hx of multiple i & D to buttocks - Social History Smoking Status: Former smoker How long have you smoked: 45 YEARS Exposure to second hand smoke: Yes Drug Use: none Patient Lives Alone: No Significant Family History: heart disease - Nursing Vital Signs Nursing Vital Signs: Initial Vital Signs Temperature 110.5 F 10/05/20 10:00 Pulse Rate 100 H 10/05/20 10:00 Respiratory Rate 28 H 10/05/20 10:00 Blood Pressure 132/74 10/05/20 10:00 O2 Sat by Pulse Oximetry 98 10/05/20 10:00 Pain Scale Pain Intensity 6 - Physical Exam General Appearance: no apparent distress, alert Eye Exam: PERRL/EOMI Neck Exam: normal inspection, supple Respiratory Exam: airway intact, diminished breath sounds Cardiovascular/Chest Exam: normal heart sounds, regular rate/rhythm Abdominal/Gastrointestinal Exam: soft, No tenderness, No distention, No mass Extremity Exam: non-tender, normal range of motion, normal inspection, no calf tenderness, no pedal edema Peripheral Pulses Exam: carotid (R): 2+, carotid (L): 2+, femoral (R): 2+, femoral (L): 2+, dorsalis-pedis (R): 2+, dorsalis-pedis (L): 2+ Neurologic Exam: alert, oriented x 3, cooperative, hairspring setter II-XII nml as tested, sensation nml, No motor deficits Skin Exam: normal color, warm, No dry SpO2 Interpretation: hypoxic - Course Nursing assessment & vital signs reviewed: Yes EKG Interpreted by Me: Sinus Tach, Non-specific ST Changes Ordered Tests: Active Orders 24 hr Category Date Time Status [employer] STAT Care 10/05/20 10:13 Active EKG-ER Only STAT Care 10/05/20 10:13 Active IV Insertion STAT Care 10/05/20 10:13 Active Pulse Oximetry (ED) STAT Care 10/05/20 10:13 Active CHEST 1 VIEW (PORTABLE) Stat Exams 10/05/20 10:12 Taken CBC W DIFF Stat Lab 10/05/20 10:20 Completed CMP Stat Lab 10/05/20 10:20 Completed INFLUENZA A+B KAMILLE Stat Lab 10/05/20 10:20 Completed NT PRO BNP Stat Lab 10/05/20 10:20 Completed TROPONIN Q3H Lab 10/05/20 10:20 Completed TROPONIN Q3H Lab 10/05/20 12:58 Completed TROPONIN Q3H Lab 10/05/20 16:15 Ordered TROPONIN Q3H Lab 10/05/20 19:15 Ordered TROPONIN Q3H Lab 10/05/20 22:15 Ordered UA W/RFX UR CULTURE Stat Lab 10/05/20 12:34 Completed VENOUS BLOOD GAS Stat Lab 10/05/20 11:05 Completed BiPap/CPAP STAT RT 10/05/20 10:16 Active Respiratory Therapy Assessment DAILY RT 10/05/20 10:37 Completed Medication Summary Generic Name Dose Route Start Last Admin Trade Name Freq PRN Reason Stop Dose Admin Sodium Chloride 1,000 mls @ 50 mls/hr 10/05/20 10:15 10/05/20 10:40 Sodium Chloride 0.9% 1000 Ml IV 11/04/20 10:14 50 mls/hr .Q20H REZA Administration Discontinued Medications Generic Name Dose Route Start Last Admin Trade Name Freq PRN Reason Stop Dose Admin Albuterol/Ipratropium Confirm 10/05/20 10:06 Duoneb 0.5-3 Mg/3 Ml Neb Administered 10/05/20 10:07 Dose 3 ml IH .STK-MED ONE Albuterol/Ipratropium 3 ml 10/05/20 10:13 10/05/20 10:25 Duoneb 0.5-3 Mg/3 Ml Neb IH 10/05/20 10:14 3 ml STAT ONE Administration Levofloxacin/Dextrose 750 mg in 150 mls @ 100 mls/hr 10/05/20 10:13 10/05/20 12:16 Levofloxacin 750mg/150ml D5w IV 10/05/20 11:42 Infused STAT STA Infusion Levofloxacin/Dextrose Confirm 10/05/20 10:39 Levofloxacin 750mg/150ml D5w Administered 10/05/20 10:40 Dose 750 mg in 150 mls @ ud IV .STK-MED ONE Methylprednisolone Sodium Succinate 125 mg 10/05/20 10:13 10/05/20 10:40 Solu-Medrol 125 Mg IV 10/05/20 10:14 125 mg STAT ONE Administration Methylprednisolone Sodium Succinate Confirm 10/05/20 10:39 Solu-Medrol 125 Mg Administered 10/05/20 10:40 Dose 125 mg .ROUTE .STK-MED ONE Lab/Rad Data: Laboratory Result Diagrams 10/05/20 10:20 10/05/20 10:20 Laboratory Results 10/05/20 10/05/20 10/05/20 Range/Units 12:58 12:34 11:05 WBC (4.0-10.5) K/mm3 RBC (4.1-5.6) M/mm3 Hgb (12.5-18.0) gm/dl Hct (42-50) % MCV (78-100) fl MCH (26-32) pg MCHC (32-36) g/dl RDW (11.5-14.0) % Plt Count (150-450) K/mm3 MPV (7.5-11.0) fl Gran % (36.0-66.0) % Eos # (Auto) (0-0.5) Absolute Lymphs (auto) (1.0-4.6) Absolute Monos (auto) (0.0-1.3) Lymphocytes % (24.0-44.0) % Monocytes % (0.0-12.0) % Eosinophils % (0.00-5.0) % Basophils % (0.0-0.4) % Absolute Granulocytes (1.4-6.9) Basophils # (0-0.4) pO2/FiO2 Ratio 34.0 % VBG pH 7.35 (7.32-7.42) VBG pCO2 at Pat Temp 63 H* (42-55) mm/Hg VBG pO2 at Pat Temp 47 H (25-40) mm/Hg VBG HCO3 34.8 H* (22-28) meq/L VBG O2 Sat ([place]) 81.3 L (95-100) VBG Base Excess 7.0 H (-2.0-2.0) VBG Hemoglobin 8.4 VBG Carboxyhemoglobin 3.5 (0.0-6.9) % T HGB POC Potassium 4.2 (3.5-5.1) Sodium (137-145) mmol/L Potassium (3.5-5.1) mmol/L Chloride (98-107) mmol/L Carbon Dioxide (22-30) mmol/L Anion Gap (5-15) MEQ/L BUN (9-20) mg/dL Creatinine (0.66-1.25) mg/dL Estimated GFR ML/MIN Glucose (74-106) mg/dL Calcium (8.4-10.2) mg/dL Total Bilirubin (0.2-1.3) mg/dL AST (17-59) U/L ALT (0-50) U/L Alkaline Phosphatase (38-126) U/L Troponin I < 0.012 (0.000-0.034) ng/mL NT-Pro-B Natriuret Pep (0-900) pg/mL Serum Total Protein (6.3-8.2) g/dL Albumin (3.5-5.0) g/dL Urine Color YELLOW (YELLOW) Urine Appearance CLEAR (CLEAR) Urine pH 6.0 (5-6) Ur Specific [place] 1.013 (1.005-1.025) Urine Protein NEGATIVE (Negative) Urine Ketones NEGATIVE (NEGATIVE) Urine Blood SMALL (0-5) [place]/ul Urine Nitrite NEGATIVE (NEGATIVE) Urine Bilirubin NEGATIVE (NEGATIVE) Urine Urobilinogen NEGATIVE (0-1) mg/dL Ur Leukocyte Esterase NEGATIVE (NEGATIVE) Urine WBC (Auto) NONE (0-5) /HPF Urine RBC (Auto) 6-10 (0-2) /HPF U Epithel Cells (Auto) NONE (FEW) /HPF Urine Bacteria (Auto) NONE (NEGATIVE) /HPF Urine Culture Reflexed NO (NO) Urine Glucose NEGATIVE (NEGATIVE) mg/dL Influenza Type A Ag (NEGATIVE) Influenza Type B Ag (NEGATIVE) Group A Strep Antibody (NEGATIVE) Slides for Path Review 10/05/20 10/05/20 10/05/20 Range/Units 10:20 10:20 10:20 WBC (4.0-10.5) K/mm3 RBC (4.1-5.6) M/mm3 Hgb (12.5-18.0) gm/dl Hct (42-50) % MCV (78-100) fl MCH (26-32) pg MCHC (32-36) g/dl RDW (11.5-14.0) % Plt Count (150-450) K/mm3 MPV (7.5-11.0) fl Gran % (36.0-66.0) % Eos # (Auto) (0-0.5) Absolute Lymphs (auto) (1.0-4.6) Absolute Monos (auto) (0.0-1.3) Lymphocytes % (24.0-44.0) % Monocytes % (0.0-12.0) % Eosinophils % (0.00-5.0) % Basophils % (0.0-0.4) % Absolute Granulocytes (1.4-6.9) Basophils # (0-0.4) pO2/FiO2 Ratio % VBG pH (7.32-7.42) VBG pCO2 at Pat Temp (42-55) mm/Hg VBG pO2 at Pat Temp (25-40) mm/Hg VBG HCO3 (22-28) meq/L VBG O2 Sat ([place]) (95-100) VBG Base Excess (-2.0-2.0) VBG Hemoglobin VBG Carboxyhemoglobin (0.0-6.9) % T HGB POC Potassium (3.5-5.1) Sodium (137-145) mmol/L Potassium (3.5-5.1) mmol/L Chloride (98-107) mmol/L Carbon Dioxide (22-30) mmol/L Anion Gap (5-15) MEQ/L BUN (9-20) mg/dL Creatinine (0.66-1.25) mg/dL Estimated GFR ML/MIN Glucose (74-106) mg/dL Calcium (8.4-10.2) mg/dL Total Bilirubin (0.2-1.3) mg/dL AST (17-59) U/L ALT (0-50) U/L Alkaline Phosphatase (38-126) U/L Troponin I < 0.012 (0.000-0.034) ng/mL NT-Pro-B Natriuret Pep (0-900) pg/mL Serum Total Protein (6.3-8.2) g/dL Albumin (3.5-5.0) g/dL Urine Color (YELLOW) Urine Appearance (CLEAR) Urine pH (5-6) Ur Specific [place] (1.005-1.025) Urine Protein (Negative) Urine Ketones (NEGATIVE) Urine Blood (0-5) [place]/ul Urine Nitrite (NEGATIVE) Urine Bilirubin (NEGATIVE) Urine Urobilinogen (0-1) mg/dL Ur Leukocyte Esterase (NEGATIVE) Urine WBC (Auto) (0-5) /HPF Urine RBC (Auto) (0-2) /HPF U Epithel Cells (Auto) (FEW) /HPF Urine Bacteria (Auto) (NEGATIVE) /HPF Urine Culture Reflexed (NO) Urine Glucose (NEGATIVE) mg/dL Influenza Type A Ag NEGATIVE (NEGATIVE) Influenza Type B Ag NEGATIVE (NEGATIVE) Group A Strep Antibody NOT DETECTED (NEGATIVE) Slides for Path Review 10/05/20 10/05/20 Range/Units 10:20 10:20 WBC 12.7 H (4.0-10.5) K/mm3 RBC 2.84 L (4.1-5.6) M/mm3 Hgb 8.1 L (12.5-18.0) gm/dl Hct 28.6 L (42-50) % MCV 100.7 H (78-100) fl MCH 28.5 (26-32) pg MCHC 28.3 L (32-36) g/dl RDW 14.3 H (11.5-14.0) % Plt Count 233 (150-450) K/mm3 MPV 8.4 (7.5-11.0) fl Gran % 86.8 H (36.0-66.0) % Eos # (Auto) 0.21 (0-0.5) Absolute Lymphs (auto) 0.54 L (1.0-4.6) Absolute Monos (auto) 0.92 (0.0-1.3) Lymphocytes % 4.2 L (24.0-44.0) % Monocytes % 7.2 (0.0-12.0) % Eosinophils % 1.6 (0.00-5.0) % Basophils % 0.2 (0.0-0.4) % Absolute Granulocytes 11.04 H (1.4-6.9) Basophils # 0.03 (0-0.4) pO2/FiO2 Ratio % VBG pH (7.32-7.42) VBG pCO2 at Pat Temp (42-55) mm/Hg VBG pO2 at Pat Temp (25-40) mm/Hg VBG HCO3 (22-28) meq/L VBG O2 Sat ([place]) (95-100) VBG Base Excess (-2.0-2.0) VBG Hemoglobin VBG Carboxyhemoglobin (0.0-6.9) % T HGB POC Potassium (3.5-5.1) Sodium 138 (137-145) mmol/L Potassium 4.0 (3.5-5.1) mmol/L Chloride 97 L (98-107) mmol/L Carbon Dioxide 35 H (22-30) mmol/L Anion Gap 9.9 (5-15) MEQ/L BUN 13 (9-20) mg/dL Creatinine 0.62 L (0.66-1.25) mg/dL Estimated GFR > 60.0 ML/MIN Glucose 102 (74-106) mg/dL Calcium 8.9 (8.4-10.2) mg/dL Total Bilirubin 0.20 (0.2-1.3) mg/dL AST 18 (17-59) U/L ALT 20 (0-50) U/L Alkaline Phosphatase 58 (38-126) U/L Troponin I (0.000-0.034) ng/mL NT-Pro-B Natriuret Pep 318 (0-900) pg/mL Serum Total Protein 7.2 (6.3-8.2) g/dL Albumin 3.7 (3.5-5.0) g/dL Urine Color (YELLOW) Urine Appearance (CLEAR) Urine pH (5-6) Ur Specific [place] (1.005-1.025) Urine Protein (Negative) Urine Ketones (NEGATIVE) Urine Blood (0-5) [place]/ul Urine Nitrite (NEGATIVE) Urine Bilirubin (NEGATIVE) Urine Urobilinogen (0-1) mg/dL Ur Leukocyte Esterase (NEGATIVE) Urine WBC (Auto) (0-5) /HPF Urine RBC (Auto) (0-2) /HPF U Epithel Cells (Auto) (FEW) /HPF Urine Bacteria (Auto) (NEGATIVE) /HPF Urine Culture Reflexed (NO) Urine Glucose (NEGATIVE) mg/dL Influenza Type A Ag (NEGATIVE) Influenza Type B Ag (NEGATIVE) Group A Strep Antibody (NEGATIVE) Slides for Path Review YES - Progress Progress: improved, re-examined Air Movement: good Progress Note: 10/05/20 15:09 discussed with pt , family and Dr. Quinones and will place in on obs for left pneumonia Blood Culture(s) Obtained: No Antibiotics given: Yes Discussed with : Robert Will see patient in: hospital (observation) Counseled pt/family regarding: lab results, diagnosis, need for follow-up, rad results - Departure Departure Disposition: Observation Clinical Impression: Chronic obstructive lung disease, pneumonia left lung Condition: Good Critical Care Time: Yes Critical Care Time(excluding separately billable procedures): Critical 30-74 mins (inital o2 sat in 80s without O2 , and required intesive resp support >30 minutes) Referrals: SYLWIA FRASER MD [Primary Care Provider] -
[2020-10-05] MEDS ORDERED: LEVOFLOXACIN 750MG/150ML D5W 750 MG/150 ML BAG IV STA (10:13)
[2020-10-05] MEDS ORDERED: solu-MEDROL 125 MG IV ONE (10:13)
[2020-10-05] MEDS ORDERED: Sodium Chloride 0.9% 1000 ML 1,000 ML IV SCH ×2 (10:15→19:00)
[2020-10-05] MEDS ORDERED: solu-MEDROL 125 MG ONE ×2 (10:39→22:32)
[2020-10-05] MEDS ORDERED: LEVOFLOXACIN 750MG/150ML D5W 750 MG/150 ML BAG IV ONE (10:39)
[2020-10-05] MEDS ORDERED: Sodium Chloride 0.9% 1000 ML 1,000 ML ONE (10:39)
[2020-10-05 10:47] LABS: Absolute Neutrophil Ct (ANC) 11.04 (1.4-6.9); BASOPHIL % 0.2 % (0.0-0.4); Basophil (Absolute #) 0.03 (0-0.4); Eosinophil % 1.6 % (0.00-5.0); Eosinophil (Absolute #) 0.21 (0-0.5); Hematocrit 28.6 % (42-50); Hemoglobin 8.1 gm/dl (12.5-18.0); Lymphocyte (Absolute #) 0.54 (1.0-4.6); Lymphocytes % 4.2 % (24.0-44.0); Mean Cell Volume 100.7 fl (78-100); Mean Corpuscular Hemoglobin 28.5 pg (26-32); Mean Corpuscular Hgb Concent. 28.3 g/dl (32-36); Mean Platelet Volume 8.4 fl (7.5-11.0); Monocyte (Absolute #) 0.92 (0.0-1.3); Monocytes % 7.2 % (0.0-12.0); Neutrophil % 86.8 % (36.0-66.0); Platelet Count 233 K/mm3 (150-450); Red Blood Count 2.84 M/mm3 (4.1-5.6); Red Cell Distribution Width 14.3 % (11.5-14.0); White Blood Count 12.7 K/mm3 (4.0-10.5)
[2020-10-05 10:54] LABS: INFLUENZA A NEGATIVE (NEGATIVE); INFLUENZA B NEGATIVE (NEGATIVE)
[2020-10-05 11:07] LABS: VBG CARBOXYHEMOGLOBIN 3.5 % T HGB (0.0-6.9); VBG HCO3- 34.8 meq/L (22-28); VBG HEMOGLOBIN 8.4; VBG O2 SATURATION 81.3 (95-100); VBG POTASSIUM 4.2 (3.5-5.1); VBG pH 7.35 (7.32-7.42)
[2020-10-05 11:07] LABS: ALBUMIN 3.7 g/dL (3.5-5.0); ALKALINE PHOSPHATASE 58 U/L (38-126); ANION GAP 9.9 MEQ/L (5-15); BLOOD UREA NITROGEN 13 mg/dL (9-20); CHLORIDE 97 mmol/L (98-107); Calcium 8.9 mg/dL (8.4-10.2); Carbon Dioxide 35 mmol/L (22-30); Creatinine 1 0.62 mg/dL (0.66-1.25); EST GLOMERULAR FILTRATION RATE > 60.0 ML/MIN; Glucose 102 mg/dL (74-106); NT PRO BNP 318 pg/mL (0-900); SGOT/AST 18 U/L (17-59); SGPT/ALT 20 U/L (0-50); SODIUM 138 mmol/L (137-145); Total Protein 7.2 g/dL (6.3-8.2)
[2020-10-05 11:20] LABS: Slide Review 1 YES
[2020-10-05 12:57] LABS: Appearance CLEAR (CLEAR); Bilirubin NEGATIVE (NEGATIVE); Blood SMALL Ery/ul (0-5); Glucose NEGATIVE (NEGATIVE); Ketones NEGATIVE (NEGATIVE); Leukocyte Esterase NEGATIVE (NEGATIVE); Nitrite NEGATIVE (NEGATIVE); Protein,Urine Dip NEGATIVE (Negative); Specific Gravity 1.013 (1.005-1.025); Urobilinogen NEGATIVE mg/dL (0-1)
[2020-10-05] MEDS ORDERED: TYLENOL 325 MG PO PRN (16:50)
[2020-10-05] MEDS ORDERED: DUONEB 0.5-3 MG/3 ml Neb IH PRN (16:50)
[2020-10-05] MEDS ORDERED: Zofran 4 MG/2 ML VIAL IV PRN (16:50)
[2020-10-05] MEDS ORDERED: solu-MEDROL 40 MG ONE (17:59)
[2020-10-05] MEDS ORDERED: AZACTAM 1 GM ONE ×2 (18:00→22:34)
[2020-10-05] MEDS ORDERED: Sodium Chloride 0.9% 100 ML BAG 100 ML ONE ×2 (18:08→22:34)
[2020-10-05] MEDS: solu-MEDROL 125 MG IV SCH ×2 (18:16→22:40)
[2020-10-05] MEDS: AZACTAM 1 GM*** 1 GM in Sodium Chloride 100ML MINI-BAG PLUS 100 ML IV SCH ×2 (18:18→23:02)
[2020-10-05] MEDS: HUMULIN R SQ PRN ×2 (18:22→21:21)
--- NOTE | 2020-10-05 19:29 | XRAY ---
Indication: Short of breath. Right lobectomy. Comparison: March 03, 2015. Portable chest demonstrates new diffuse left lung interstitial alveolar opacities with small effusion. Stable right lung volume loss with pleural parenchymal opacities presumed post surgical. Heart now enlarged with again right Port-A-Cath. Bony thorax demonstrates osteopenia and multiple bilateral rib fractures.
[2020-10-05] MEDS ORDERED: Duragesic 75 MCG Patch ONE (19:30)
[2020-10-05] MEDS ORDERED: Duragesic 75 MCG Patch TD SCH (19:45)
[2020-10-05] MEDS: Advair Hfa 115/21 Common canister IH SCH (20:04)
[2020-10-05] MEDS: BUSPAR 5 MG PO SCH (21:19)
[2020-10-05] MEDS: Mucinex 600MG ER Tabs PO SCH (21:20)
[2020-10-05] MEDS: Coreg 6.25 MG PO SCH (21:20)
[2020-10-05] MEDS: Neurontin 400 MG PO SCH (21:20)
[2020-10-05] MEDS: Cymbalta 30 MG Capsule PO SCH (21:20)
[2020-10-05] MEDS: Pepcid 20 MG VIAL IV SCH (21:21)
[2020-10-05] MEDS: Lantus Insulin SQ SCH (21:21)
[2020-10-05] MEDS ORDERED: ZOCOR 20MG PO SCH (22:00)
[2020-10-05] MEDS ORDERED: Flomax 0.4 MG PO ONE (22:30)
[2020-10-05] MEDS: MORPHINE SULFATE 4 MG INJ IV PRN (22:44)
[2020-10-06] MEDS ORDERED: AZACTAM 1 GM ONE (04:11)
[2020-10-06] MEDS: MORPHINE SULFATE 4 MG INJ IV PRN ×3 (04:16→12:54)
[2020-10-06] MEDS: solu-MEDROL 125 MG IV SCH ×2 (05:07→12:07)
[2020-10-06] MEDS: AZACTAM 1 GM*** 1 GM in Sodium Chloride 100ML MINI-BAG PLUS 100 ML IV SCH ×2 (05:08→12:17)
[2020-10-06 05:21] LABS: BASOPHIL % 0.2 % (0.0-0.4); Basophil (Absolute #) 0.02 (0-0.4); Eosinophil (Absolute #) 0 (0-0.5); Hematocrit 26.9 % (42-50); Hemoglobin 7.7 gm/dl (12.5-18.0); Lymphocyte (Absolute #) 0.43 (1.0-4.6); Lymphocytes % 3.7 % (24.0-44.0); Mean Cell Volume 100.7 fl (78-100); Mean Corpuscular Hemoglobin 28.8 pg (26-32); Mean Corpuscular Hgb Concent. 28.6 g/dl (32-36); Mean Platelet Volume 8.5 fl (7.5-11.0); Monocytes % 1.7 % (0.0-12.0); Neutrophil % 94.4 % (36.0-66.0); Platelet Count 256 K/mm3 (150-450); Red Blood Count 2.67 M/mm3 (4.1-5.6); Red Cell Distribution Width 14.3 % (11.5-14.0); White Blood Count 11.7 K/mm3 (4.0-10.5)
[2020-10-06 05:43] LABS: ALBUMIN 3.6 g/dL (3.5-5.0); ALKALINE PHOSPHATASE 51 U/L (38-126); ANION GAP 9.4 MEQ/L (5-15); BLOOD UREA NITROGEN 15 mg/dL (9-20); CHLORIDE 96 mmol/L (98-107); Carbon Dioxide 36 mmol/L (22-30); Creatinine 1 0.63 mg/dL (0.66-1.25); EST GLOMERULAR FILTRATION RATE > 60.0 ML/MIN; Glucose 228 mg/dL (74-106); Potassium 4.3 mmol/L (3.5-5.1); SGOT/AST 17 U/L (17-59); SGPT/ALT 20 U/L (0-50); SODIUM 137 mmol/L (137-145); Total Protein 6.9 g/dL (6.3-8.2)
[2020-10-06] MEDS: Advair Hfa 115/21 Common canister IH SCH (06:58)
[2020-10-06 07:26] VITALS: BP 137/64; PULSE 88; O2SAT 99
[2020-10-06] MEDS: HUMULIN R SQ PRN ×2 (08:13→12:38)
[2020-10-06] MEDS: Mucinex 600MG ER Tabs PO SCH (09:59)
[2020-10-06] MEDS: Lantus Insulin SQ SCH (09:59)
[2020-10-06] MEDS: Neurontin 400 MG PO SCH (09:59)
[2020-10-06] MEDS: Cymbalta 30 MG Capsule PO SCH (09:59)
[2020-10-06] MEDS: Coreg 6.25 MG PO SCH (09:59)
[2020-10-06] MEDS: BUSPAR 5 MG PO SCH (09:59)
[2020-10-06] MEDS: Pepcid 20 MG VIAL IV SCH (09:59)
[2020-10-06] MEDS ORDERED: Zestril 10 MG PO SCH (10:00)
[2020-10-06] MEDS ORDERED: FEOSOL 325 MG PO SCH (10:00)
[2020-10-06] MEDS ORDERED: LEVOFLOXACIN 750MG/150ML D5W 750 MG/150 ML BAG IV SCH (10:00)
[2020-10-06] MEDS ORDERED: BUMEX 1 MG PO SCH (10:00)
[2020-10-06] MEDS ORDERED: FERROUS FUMARATE 324 MG PO SCH (10:00)
[2020-10-06] MEDS ORDERED: Colace 100 MG PO SCH (10:00)
--- NOTE | 2020-10-06 10:14 | XRAY ---
Indication: Urinary retention. Two-dimensional ultrasound of the urinary bladder performed. Comparison: None Urinary bladder normally distended with prevoid volume 299 cc. Minimal echogenic debris seen in the dependent portion. No suspicious bladder wall mass. Ureteral jets not seen within the allotted exam time. Patient was unable to void. Impression: Minimal urinary bladder debris in a otherwise negative urinary bladder sonogram.
[2020-10-06 11:35] LABS: Slide Review 1 YES
--- NOTE | 2020-10-06 15:09 | PCM.SSS ---
History of Present Illness - Chief Complaint Chief Complaint: c/o shortness of breath for 1-2 days History of Present Illness: is a 75 year old male came to Er with c/o shortness of breath and chest congestion for 1-2 days. alsoc/o unable to urinate - Review of Systems Constitutional: No Fever, No Chills Eyes: No Symptoms Ears, Nose, & Throat: No Symptoms Respiratory: Cough, Short Of Breath Cardiac: Edema, No Chest Pain, No Syncope Abdominal/Gastrointestinal: No Abdominal Pain, No Nausea, No Vomiting, No Diarrhea Genitourinary Symptoms: Urinary Retention, No Dysuria Musculoskeletal: No Back Pain, No Neck Pain Skin: No Rash Neurological: No Dizziness, No Focal Weakness, No Sensory Changes Psychological: No Symptoms Endocrine: No Symptoms Hematologic/Lymphatic: No Symptoms Immunological/Allergic: No Symptoms Medications & Allergies Home Medications: Home Medication List Bumetanide 1 mg [Bumex 1 mg] 1 mg PO QAM 03/03/15 [History Confirmed 10/05/20] Carvedilol 6.25 mg [Coreg 6.25 MG] 6.25 mg PO BID 03/03/15 [History Confirmed 10/05/20] Fentanyl 75Mcg Patch [Duragesic 75 MCG Patch] 75 mcg .ROUTE Q72H 03/03/15 [History Confirmed 10/05/20] Ferrous Fumarate 324 mg PO DAILY 03/03/15 [History Confirmed 10/05/20] Fluticasone/Salmeterol 115/21* [Advair Hfa 115/21 Mcg Inhaler] 21 mcg PO BID 03/03/15 [History Confirmed 10/06/20] Gabapentin 400 mg [Neurontin 400 MG] 800 mg PO TID 03/03/15 [History Confirmed 10/05/20] Insulin Detemir [Levemir Flexpen] 35 units SQ BID 03/03/15 [History Confirmed 10/05/20] Lisinopril 10 mg [Zestril 10 MG] 5 mg PO UD 03/03/15 [History Confirmed 10/05/20] Pravastatin Sodium 40 mg PO HS 03/03/15 [History Confirmed 10/05/20] Prednisone 10 mg [Deltasone 10 mg] 10 mg PO DAILY 03/03/15 [History Confi rmed 10/05/20] Buspirone HCl [Buspar] 10 mg PO BID 11/03/16 [History Confirmed 10/05/20] Duloxetine HCl [Cymbalta] 60 mg PO BID 11/03/16 [History Confirmed 10/05/20] Docusate Sodium 100 mg [Colace 100 MG] 100 mg PO DAILY 04/05/18 [History Confirmed 10/05/20] Levofloxacin [Levaquin] 250 mg PO DAILY #7 tablet 10/06/20 [Rx] Tamsulosin HCl 0.4 mg [Flomax 0.4 MG] 0 mg PO HS 30 Days #30 cap 10/06/20 [Rx] Allergies/Adverse Reactions: Allergies Allergy/AdvReac Type Severity Reaction Status Date / Time Penicillins Allergy Unknown Verified 11/11/16 07:20 - Past Medical History Past Medical History: Yes Neurological History: Peripheral Neuropathy, TIA ENT History: No Pertinent History Cardiac History: Congestive Heart Failure Respiratory History: CHF, COPD, Emphysema, Lung Cancer Endocrine Medical History: Diabetes Type II Musculoskelatal History: Arthritis, Degenerative Disk Disease GI Medical History: Esophageal Disorder, GERD, Hernia History: No Pertinent History Pyscho-Social History: Anxiety, Depression Male Reproductive Disorders: No Pertinent History Comment: . - Past Surgical History Past Surgical History: Yes Neuro Surgical History: No Pertinent History Cardiac History: Cardiac Stent Respiratory Surgery: Lobectomy GI Surgical History: Cholecystectomy Genitourinary Surgical Hx: No Pertinent History Musculskeletal Surgical Hx: No Pertinent History Male Surgical History: No Pertinent History Other Surgical History: hx of multiple i & D to buttocks - Social History Smoking Status: Former smoker How long have you smoked: 45 YEARS Exposure to second hand smoke: No Alcohol: None Drug Use: none Significant Family History: heart disease - Physical Exam Vital Signs: Vital Signs - 24 hr Temp Pulse Resp BP Pulse Ox 10/06/20 12:00 98.2 F 88 16 137/64 99 10/06/20 07:25 98.2 F 88 16 137/64 99 10/06/20 07:05 92 H 18 95 10/06/20 04:18 98.5 F 89 20 116/86 99 10/05/20 23:36 98.3 F 85 20 120/57 98 10/05/20 20:09 102 H 18 97 10/05/20 19:32 98.7 F 101 H 22 102/50 99 10/05/20 17:45 107 H 20 100 10/05/20 17:25 97.9 F 98 H 16 138/59 100 10/05/20 16:50 97.9 F 98 H 16 138/59 100 General Appearance: no apparent distress, alert Neurologic Exam: alert, oriented x 3, cooperative, normal mood/affect, nml cerebellar function, nml station & gait, sensation nml, No motor deficits Eye Exam: PERRL/EOMI, eyes nml inspection Ears, Nose, Throat Exam: normal ENT inspection, TMs normal, pharynx normal, moist mucous membranes Neck Exam: normal inspection, non-tender, supple, full range of motion Respiratory Exam: crackles/rales, rhonchi, No respiratory distress Cardiovascular Exam: regular rate/rhythm, normal heart sounds, normal peripheral pulses Gastrointestinal/Abdomen Exam: soft, normal bowel sounds, No tenderness, No mass Back Exam: normal inspection, normal range of motion, No CVA tenderness, No vertebral tenderness Extremity Exam: normal inspection, normal range of motion, pelvis stable Skin Exam: normal color, warm, dry, No rash Lymphatic Exam: No adenopathy Results - Labs Lab/Micro Results: Lab Results-Last 24 Hours 10/05/20 10/05/20 10/05/20 Range/Units 15:00 16:02 17:18 WBC (4.0-10.5) K/mm3 RBC (4.1-5.6) M/mm3 Hgb (12.5-18.0) gm/dl Hct (42-50) % MCV (78-100) fl MCH (26-32) pg MCHC (32-36) g/dl RDW (11.5-14.0) % Plt Count (150-450) K/mm3 MPV (7.5-11.0) fl Gran % (36.0-66.0) % Eos # (Auto) (0-0.5) Absolute Lymphs (auto) (1.0-4.6) Absolute Monos (auto) (0.0-1.3) Lymphocytes % (24.0-44.0) % Monocytes % (0.0-12.0) % Eosinophils % (0.00-5.0) % Basophils % (0.0-0.4) % Absolute Granulocytes (1.4-6.9) Basophils # (0-0.4) Sodium (137-145) mmol/L Potassium (3.5-5.1) mmol/L Chloride (98-107) mmol/L Carbon Dioxide (22-30) mmol/L Anion Gap (5-15) MEQ/L BUN (9-20) mg/dL Creatinine (0.66-1.25) mg/dL Estimated GFR ML/MIN Glucose (74-106) mg/dL POC Glucometer 227 H (74 to 106) mg/dL Hemoglobin A1c (4.5-6.0) % Calcium (8.4-10.2) mg/dL Total Bilirubin (0.2-1.3) mg/dL AST (17-59) U/L ALT (0-50) U/L Alkaline Phosphatase (38-126) U/L Troponin I < 0.012 (0.000-0.034) ng/mL Serum Total Protein (6.3-8.2) g/dL Albumin (3.5-5.0) g/dL SARS-CoV-2 (PCR) NEGATIVE (NEGATIVE) Slides for Path Review 10/05/20 10/05/20 10/05/20 Range/Units 19:33 19:33 21:05 WBC (4.0-10.5) K/mm3 RBC (4.1-5.6) M/mm3 Hgb (12.5-18.0) gm/dl Hct (42-50) % MCV (78-100) fl MCH (26-32) pg MCHC (32-36) g/dl RDW (11.5-14.0) % Plt Count (150-450) K/mm3 MPV (7.5-11.0) fl Gran % (36.0-66.0) % Eos # (Auto) (0-0.5) Absolute Lymphs (auto) (1.0-4.6) Absolute Monos (auto) (0.0-1.3) Lymphocytes % (24.0-44.0) % Monocytes % (0.0-12.0) % Eosinophils % (0.00-5.0) % Basophils % (0.0-0.4) % Absolute Granulocytes (1.4-6.9) Basophils # (0-0.4) Sodium (137-145) mmol/L Potassium (3.5-5.1) mmol/L Chloride (98-107) mmol/L Carbon Dioxide (22-30) mmol/L Anion Gap (5-15) MEQ/L BUN (9-20) mg/dL Creatinine (0.66-1.25) mg/dL Estimated GFR ML/MIN Glucose (74-106) mg/dL POC Glucometer 288 H (74 to 106) mg/dL Hemoglobin A1c 6.82 H (4.5-6.0) % Calcium (8.4-10.2) mg/dL Total Bilirubin (0.2-1.3) mg/dL AST (17-59) U/L ALT (0-50) U/L Alkaline Phosphatase (38-126) U/L Troponin I < 0.012 (0.000-0.034) ng/mL Serum Total Protein (6.3-8.2) g/dL Albumin (3.5-5.0) g/dL SARS-CoV-2 (PCR) (NEGATIVE) Slides for Path Review 10/05/20 10/06/20 10/06/20 Range/Units 22:34 04:25 04:25 WBC 11.7 H (4.0-10.5) K/mm3 RBC 2.67 L (4.1-5.6) M/mm3 Hgb 7.7 L (12.5-18.0) gm/dl Hct 26.9 L (42-50) % MCV 100.7 H (78-100) fl MCH 28.8 (26-32) pg MCHC 28.6 L (32-36) g/dl RDW 14.3 H (11.5-14.0) % Plt Count 256 (150-450) K/mm3 MPV 8.5 (7.5-11.0) fl Gran % 94.4 H (36.0-66.0) % Eos # (Auto) 0 (0-0.5) Absolute Lymphs (auto) 0.43 L (1.0-4.6) Absolute Monos (auto) 0.20 (0.0-1.3) Lymphocytes % 3.7 L (24.0-44.0) % Monocytes % 1.7 (0.0-12.0) % Eosinophils % 0.0 (0.00-5.0) % Basophils % 0.2 (0.0-0.4) % Absolute Granulocytes 11.00 H (1.4-6.9) Basophils # 0.02 (0-0.4) Sodium 137 (137-145) mmol/L Potassium 4.3 (3.5-5.1) mmol/L Chloride 96 L (98-107) mmol/L Carbon Dioxide 36 H (22-30) mmol/L Anion Gap 9.4 (5-15) MEQ/L BUN 15 (9-20) mg/dL Creatinine 0.63 L (0.66-1.25) mg/dL Estimated GFR > 60.0 ML/MIN Glucose 228 H (74-106) mg/dL POC Glucometer (74 to 106) mg/dL Hemoglobin A1c (4.5-6.0) % Calcium 9.0 (8.4-10.2) mg/dL Total Bilirubin 0.10 L (0.2-1.3) mg/dL AST 17 (17-59) U/L ALT 20 (0-50) U/L Alkaline Phosphatase 51 (38-126) U/L Troponin I < 0.012 (0.000-0.034) ng/mL Serum Total Protein 6.9 (6.3-8.2) g/dL Albumin 3.6 (3.5-5.0) g/dL SARS-CoV-2 (PCR) (NEGATIVE) Slides for Path Review YES 10/06/20 10/06/20 Range/Units 07:09 12:13 WBC (4.0-10.5) K/mm3 RBC (4.1-5.6) M/mm3 Hgb (12.5-18.0) gm/dl Hct (42-50) % MCV (78-100) fl MCH (26-32) pg MCHC (32-36) g/dl RDW (11.5-14.0) % Plt Count (150-450) K/mm3 MPV (7.5-11.0) fl Gran % (36.0-66.0) % Eos # (Auto) (0-0.5) Absolute Lymphs (auto) (1.0-4.6) Absolute Monos (auto) (0.0-1.3) Lymphocytes % (24.0-44.0) % Monocytes % (0.0-12.0) % Eosinophils % (0.00-5.0) % Basophils % (0.0-0.4) % Absolute Granulocytes (1.4-6.9) Basophils # (0-0.4) Sodium (137-145) mmol/L Potassium (3.5-5.1) mmol/L Chloride (98-107) mmol/L Carbon Dioxide (22-30) mmol/L Anion Gap (5-15) MEQ/L BUN (9-20) mg/dL Creatinine (0.66-1.25) mg/dL Estimated GFR ML/MIN Glucose (74-106) mg/dL POC Glucometer 206 H 264 H (74 to 106) mg/dL Hemoglobin A1c (4.5-6.0) % Calcium (8.4-10.2) mg/dL Total Bilirubin (0.2-1.3) mg/dL AST (17-59) U/L ALT (0-50) U/L Alkaline Phosphatase (38-126) U/L Troponin I (0.000-0.034) ng/mL Serum Total Protein (6.3-8.2) g/dL Albumin (3.5-5.0) g/dL SARS-CoV-2 (PCR) (NEGATIVE) Slides for Path Review Accuchecks Date 10/06/20 Time 12:28 - Radiology Impressions Radiology Exams & Impressions: Radiology Procedures Category Date Time Status CHEST 1 VIEW (PORTABLE) Stat Exams 10/05/20 10:12 Completed Ultrasound Bladder [BLADDER] [US] Routine Exams 10/06/20 09:58 Completed RAD/CHEST 1 VIEW (PORTABLE) Indication: Short of breath. Right lobectomy. Comparison: March 03, 2015. Portable chest demonstrates new diffuse left lung interstitial alveolar opacities with small effusion. Stable right lung volume loss with pleural parenchymal opacities presumed post surgical. Heart now enlarged with again right Port-A-Cath. Bony thorax demonstrates osteopenia and multiple bilateral rib fractures. Assessment/Plan (1) Urinary retention due to benign prostatic hyperplasia Status: Acute Code(s): N40.1 - BENIGN PROSTATIC HYPERPLASIA WITH LOWER URINARY TRACT SYMP; R33.8 - OTHER RETENTION OF URINE (2) COPD exacerbation Status: Acute Code(s): J44.1 - CHRONIC OBSTRUCTIVE PULMONARY DISEASE W (ACUTE) EXACERBATION Hospital Summary - Hospital Course Hospital Course: Chief Complaint Diagnosis c/o shortness of breath for 1-2 days Allergies Allergy/AdvReac Type Severity Reaction Status Date / Time Penicillins Allergy Unknown Verified 11/11/16 07:20 Vital Signs (Last 24 hours) Temp Pulse Resp BP Pulse Ox 10/06/20 12:00 98.2 F 88 16 137/64 99 10/06/20 07:25 98.2 F 88 16 137/64 99 10/06/20 07:05 92 H 18 95 10/06/20 04:18 98.5 F 89 20 116/86 99 10/05/20 23:36 98.3 F 85 20 120/57 98 10/05/20 20:09 102 H 18 97 10/05/20 19:32 98.7 F 101 H 22 102/50 99 10/05/20 17:45 107 H 20 100 10/05/20 17:25 97.9 F 98 H 16 138/59 100 10/05/20 16:50 97.9 F 98 H 16 138/59 100 Home Medications Medication Instructions Recorded Confirmed Last Taken Type Levofloxacin [Levaquin] 250 mg PO DAILY #7 tablet 10/06/20 Unknown Rx Tamsulosin HCl 0.4 mg [Flomax 0 mg PO HS 30 Days #30 cap 10/06/20 Unknown Rx 0.4 MG] Current Medications Discontinued Medications Generic Name Dose Route Start Last Admin Trade Name Bebetoq PRN Reason Stop Dose Admin Acetaminophen 650 mg 10/05/20 16:50 Tylenol 325 Mg PO 11/04/20 16:49 Q4H PRN PRN PAIN AND/OR FEVER Albuterol/Ipratropium Confirm 10/05/20 10:06 Duoneb 0.5-3 Mg/3 Ml Neb Administered 10/05/20 10:07 Dose 3 ml IH .STK-MED ONE Albuterol/Ipratropium 3 ml 10/05/20 10:13 10/05/20 10:25 Duoneb 0.5-3 Mg/3 Ml Neb IH 10/05/20 10:14 3 ml STAT ONE Administration Albuterol/Ipratropium 3 ml 10/05/20 16:50 Duoneb 0.5-3 Mg/3 Ml Neb IH 11/04/20 16:49 Q4HPRN PRN SHORTNESS OF BREATH/WHEEZING Aztreonam Confirm 10/05/20 18:00 Azactam 1 Gm Administered 10/05/20 18:01 Dose 1 gm .ROUTE .STK-MED ONE Aztreonam Confirm 10/05/20 22:34 Azactam 1 Gm Administered 10/05/20 22:35 Dose 1 gm .ROUTE .STK-MED ONE Aztreonam Confirm 10/06/20 04:11 Azactam 1 Gm Administered 10/06/20 04:12 Dose 1 gm .ROUTE .STK-MED ONE Bumetanide 1 mg 10/06/20 10:00 10/06/20 09:59 Bumex 1 Mg PO 11/05/20 09:59 1 mg QAM REZA Administration Buspirone HCl 10 mg 10/05/20 22:00 10/06/20 09:59 Buspar 5 Mg PO 11/04/20 21:59 10 mg BID REZA Administration Carvedilol 6.25 mg 10/05/20 22:00 10/06/20 09:59 Coreg 6.25 Mg PO 11/04/20 21:59 6.25 mg BID REZA Administration Docusate Sodium 100 mg 10/06/20 10:00 10/06/20 09:59 Colace 100 Mg PO 11/05/20 09:59 100 mg DAILY REZA Administration Duloxetine HCl 60 mg 10/05/20 22:00 10/06/20 09:59 Cymbalta 30 Mg Capsule PO 11/04/20 21:59 60 mg BID REZA Administration Famotidine 20 mg 10/05/20 22:00 10/06/20 09:59 Pepcid 20 Mg Vial IV 11/04/20 21:59 20 mg Q12HT REZA Administration Fentanyl Confirm 10/05/20 19:30 Duragesic 75 Mcg Patch Administered 10/05/20 19:31 Dose 75 mcg .ROUTE .STK-MED ONE Fentanyl 75 mcg 10/05/20 19:45 10/05/20 19:43 Duragesic 75 Mcg Patch TD 10/10/20 19:44 75 mcg Q72H REZA Administration Ferrous Sulfate 325 mg 10/06/20 10:00 10/06/20 09:59 Feosol 325 Mg PO 11/05/20 09:59 325 mg DAILY REZA Administration Gabapentin 800 mg 10/05/20 22:00 10/06/20 09:59 Neurontin 400 Mg PO 11/04/20 21:59 800 mg TID REZA Administration Guaifenesin 1,200 mg 10/05/20 22:00 10/06/20 09:59 Mucinex 600mg Er Tabs PO 11/04/20 21:59 1,200 mg BID REZA Administration Heparin Sodium (Beef Lung) 500 units 10/05/20 18:58 10/06/20 12:49 Heparin Lock Flush 100 Units/Ml 5ml Syringe PORT FLUSH 11/04/20 18:57 500 units PRN PRN Administration IV PORT FLUSH Sodium Chloride 1,000 mls @ 50 mls/hr 10/05/20 10:15 10/05/20 10:40 Sodium Chloride 0.9% 1000 Ml IV 11/04/20 10:14 50 mls/hr .Q20H REZA Administration Levofloxacin/Dextrose 750 mg in 150 mls @ 100 mls/hr 10/05/20 10:13 10/05/20 12:16 Levofloxacin 750mg/150ml D5w IV 10/05/20 11:42 Infused STAT STA Infusion Levofloxacin/Dextrose Confirm 10/05/20 10:39 Levofloxacin 750mg/150ml D5w Administered 10/05/20 10:40 Dose 750 mg in 150 mls @ ud IV .STK-MED ONE Sodium Chloride Confirm 10/05/20 10:39 Sodium Chloride 0.9% 1000 Ml Administered 10/05/20 10:40 Dose 1,000 mls @ ud .ROUTE .STK-MED ONE Levofloxacin/Dextrose 750 mg in 150 mls @ 100 mls/hr 10/06/20 10:00 10/06/20 10:24 Levofloxacin 750mg/150ml D5w IV 11/05/20 09:59 100 mls/hr Q24H10 REZA Administration Aztreonam 1 gm/ Sodium 100 mls @ 200 mls/hr 10/05/20 18:00 10/06/20 12:17 Chloride IV 10/08/20 17:59 200 mls/hr Q6HT REZA Administration Sodium Chloride Confirm 10/05/20 18:08 Sodium Chloride 0.9% 100 Ml Bag Administered 10/05/20 18:09 Dose 100 mls @ ud .ROUTE .STK-MED ONE Sodium Chloride 1,000 mls @ 20 mls/hr 10/05/20 19:00 10/05/20 20:33 Sodium Chloride 0.9% 1000 Ml IV 11/04/20 18:59 20 mls/hr .Q24H REZA Administration Sodium Chloride Confirm 10/05/20 22:34 Sodium Chloride 0.9% 100 Ml Bag Administered 10/05/20 22:35 Dose 100 mls @ ud .ROUTE .STK-MED ONE Insulin Glargine 35 unit 10/05/20 22:00 10/06/20 09:59 Lantus Insulin SQ 11/04/20 21:59 35 unit BID REZA Administration Insulin Human Regular 0 unit 10/05/20 16:50 10/06/20 12:38 Humulin R SQ 11/04/20 16:49 7 unit UD PRN Administration HYPERGLYCEMIA Lisinopril 5 mg 10/06/20 10:00 10/06/20 10:23 Zestril 10 Mg PO 11/05/20 09:59 5 mg Q48H REZA Administration Methylprednisolone Sodium Succinate 125 mg 10/05/20 10:13 10/05/20 10:40 Solu-Medrol 125 Mg IV 10/05/20 10:14 125 mg STAT ONE Administration Methylprednisolone Sodium Succinate Confirm 10/05/20 10:39 Solu-Medrol 125 Mg Administered 10/05/20 10:40 Dose 125 mg .ROUTE .STK-MED ONE Methylprednisolone Sodium Succinate 40 mg 10/05/20 16:50 10/05/20 22:40 Solu-Medrol 125 Mg IV 11/04/20 16:49 40 mg Q6H REZA Administration Methylprednisolone Sodium Succinate Confirm 10/05/20 17:59 Solu-Medrol 40 Mg Administered 10/05/20 18:00 Dose 40 mg .ROUTE .STK-MED ONE Methylprednisolone Sodium Succinate Confirm 10/05/20 22:32 Solu-Medrol 125 Mg Administered 10/05/20 22:33 Dose 125 mg .ROUTE .STK-MED ONE Methylprednisolone Sodium Succinate 40 mg 10/06/20 06:00 10/06/20 12:07 Solu-Medrol 125 Mg IV 11/05/20 05:59 40 mg Q6H REZA Administration Morphine Sulfate 4 mg 10/05/20 16:50 10/06/20 12:54 Morphine Sulfate 4 Mg Inj IV 10/10/20 16:49 4 mg Q4H PRN PRN Administration PAIN Ondansetron HCl 4 mg 10/05/20 16:50 Zofran 4 Mg/2 Ml Vial IV 11/04/20 16:49 Q6H PRN PRN NAUSEA/VOMITING Fluticasone/Salmeterol 2 puff 10/05/20 19:00 10/06/20 06:58 Advair Hfa 115/21 Common Canister* IH 11/04/20 18:59 2 puff BIDRT REZA Administration Simvastatin 40 mg 10/05/20 22:00 10/05/20 21:20 Zocor 20mg PO 11/04/20 21:59 40 mg HS REZA Administration Tamsulosin HCl 0.4 mg 10/05/20 22:30 10/05/20 22:38 Flomax 0.4 Mg PO 10/05/20 22:31 0.4 mg ONCE ONE Administration Tamsulosin HCl 0.4 mg 10/06/20 22:00 Flomax 0.4 Mg PO 11/05/20 21:59 HS REZA Intake & Output (Last 24 hours) 10/04/20 10/05/20 10/06/20 10/07/20 11:59 11:59 11:59 11:59 Intake Total 1211 340 Output Total 1300 925 Balance -89 -585 Weight 95.254 kg 94.2 kg Laboratory Results (Last 24 hours) 10/06/20 10/06/20 10/06/20 12:13 07:09 04:25 WBC RBC Hgb Hct MCV MCH MCHC RDW Plt Count MPV Gran % Eos # (Auto) Absolute Lymphs (auto) Absolute Monos (auto) Lymphocytes % Monocytes % Eosinophils % Basophils % Absolute Granulocytes Basophils # Sodium 137 Potassium 4.3 Chloride 96 L Carbon Dioxide 36 H Anion Gap 9.4 BUN 15 Creatinine 0.63 L Estimated GFR > 60.0 Glucose 228 H POC Glucometer 264 H 206 H Hemoglobin A1c Calcium 9.0 Total Bilirubin 0.10 L AST 17 ALT 20 Alkaline Phosphatase 51 Troponin I Serum Total Protein 6.9 Albumin 3.6 SARS-CoV-2 (PCR) Slides for Path Review 10/06/20 10/05/20 10/05/20 04:25 22:34 21:05 WBC 11.7 H RBC 2.67 L Hgb 7.7 L Hct 26.9 L MCV 100.7 H MCH 28.8 MCHC 28.6 L RDW 14.3 H Plt Count 256 MPV 8.5 Gran % 94.4 H Eos # (Auto) 0 Absolute Lymphs (auto) 0.43 L Absolute Monos (auto) 0.20 Lymphocytes % 3.7 L Monocytes % 1.7 Eosinophils % 0.0 Basophils % 0.2 Absolute Granulocytes 11.00 H Basophils # 0.02 Sodium Potassium Chloride Carbon Dioxide Anion Gap BUN Creatinine Estimated GFR Glucose POC Glucometer 288 H Hemoglobin A1c Calcium Total Bilirubin AST ALT Alkaline Phosphatase Troponin I < 0.012 Serum Total Protein Albumin SARS-CoV-2 (PCR) Slides for Path Review YES 10/05/20 10/05/20 10/05/20 19:33 19:33 17:18 WBC RBC Hgb Hct MCV MCH MCHC RDW Plt Count MPV Gran % Eos # (Auto) Absolute Lymphs (auto) Absolute Monos (auto) Lymphocytes % Monocytes % Eosinophils % Basophils % Absolute Granulocytes Basophils # Sodium Potassium Chloride Carbon Dioxide Anion Gap BUN Creatinine Estimated GFR Glucose POC Glucometer 227 H Hemoglobin A1c 6.82 H Calcium Total Bilirubin AST ALT Alkaline Phosphatase Troponin I < 0.012 Serum Total Protein Albumin SARS-CoV-2 (PCR) Slides for Path Review 10/05/20 10/05/20 16:02 15:00 WBC RBC Hgb Hct MCV MCH MCHC RDW Plt Count MPV Gran % Eos # (Auto) Absolute Lymphs (auto) Absolute Monos (auto) Lymphocytes % Monocytes % Eosinophils % Basophils % Absolute Granulocytes Basophils # Sodium Potassium Chloride Carbon Dioxide Anion Gap BUN Creatinine Estimated GFR Glucose POC Glucometer Hemoglobin A1c Calcium Total Bilirubin AST ALT Alkaline Phosphatase Troponin I < 0.012 Serum Total Protein Albumin SARS-CoV-2 (PCR) NEGATIVE Slides for Path Review Orders (Last 24 hours) Category Date Time Status Bedrest with BRP/BSC ROUTINE Activity 10/05/20 16:50 Completed Up With Assistance ROUTINE Activity 10/05/20 16:50 Completed Code Status Order ROUTINE Care 10/05/20 16:50 Completed Fall Protocol Q1H Care 10/05/20 16:50 Completed IV Care Q6H Care 10/05/20 16:50 Completed Miscellaneous Nursing Order ROUTINE Care 10/06/20 10:59 Completed Neuro Checks Q4H Care 10/05/20 16:50 Completed POCT Glucose Check ACHS Care 10/05/20 16:[address] in Observation ROUTINE Care 10/05/20 16:50 Completed Rick Reyese, Apply ROUTINE Care 10/05/20 16:50 Completed Telemetry q6h Care 10/05/20 16:50 Completed Vital Signs Q4H Care 10/05/20 16:50 Completed Weight,Daily 0600 Care 10/05/20 16:50 Completed Cardio-Pulmonary Rehab .as ordered Cons 10/05/20 17:18 Completed Consult Pulmonology ROUTINE Cons 10/05/20 16:50 Completed Home Designer/Discharge Plan ROUTINE Cons 10/05/20 17:53 Completed Nutritional Admission Screen ONCE Diet 10/05/20 17:53 Completed Discharge Planning,Consult Routine Discharge 10/06/20 Active Discharge Routine Discharge 10/06/20 Ordered Discharge/Telephone Order Routine Discharge 10/06/20 Active Ultrasound Bladder [BLADDER] [US] Routine Exams 10/06/20 09:58 Completed CBC W DIFF AM.LAB Lab 10/06/20 04:25 Completed CMP AM.LAB Lab 10/06/20 04:25 Completed HEMOGLOBIN A1C Urgent Lab 10/05/20 19:33 Completed POCT GLUCOSE Stat Lab 10/05/20 17:18 Completed POCT GLUCOSE Stat Lab 10/05/20 21:05 Completed POCT GLUCOSE Stat Lab 10/06/20 07:09 Completed POCT GLUCOSE Stat Lab 10/06/20 12:13 Completed SARS-CoV-2 Xpert Express Stat Lab 10/05/20 15:00 Completed TROPONIN Q3H Lab 10/05/20 16:02 Completed TROPONIN Q3H Lab 10/05/20 19:33 Completed TROPONIN Q3H Lab 10/05/20 22:34 Completed Acetaminophen 325 mg [Tylenol 325 mg] Med 10/05/20 16:50 Discontinued 650 mg PO Q4H PRN PRN Albuterol/Ipratropium 3ml Neb* [DUONEB 0.5-3 MG/3 ml Med 10/05/20 16:50 Discontinued Neb] 3 ml IH Q4HPRN PRN Aztreonam 1 gm [Azactam 1 gm] Med 10/05/20 18:00 Discontinued 1 gm .ROUTE .STK-MED ONE Aztreonam 1 gm [Azactam 1 gm] Med 10/05/20 22:34 Discontinued 1 gm .ROUTE .STK-MED ONE Aztreonam 1 gm [Azactam 1 gm] Med 10/06/20 04:11 Discontinued 1 gm .ROUTE .STK-MED ONE Aztreonam 1 gm [Azactam 1 gm] 1 gm Med 10/05/20 18:00 Discontinued NaCl 0.9% 100 ml Mini-Bag Plus [Sodium Chloride 100ML MINI-BAG PLUS] 100 ml IV Q6HT Bumetanide 1 mg [Bumex 1 mg] Med 10/06/20 10:00 Discontinued 1 mg PO QAM Buspirone HCl 5 mg [Buspar 5 mg] Med 10/05/20 22:00 Discontinued 10 mg PO BID Carvedilol 6.25 mg [Coreg 6.25 MG] Med 10/05/20 22:00 Discontinued 6.25 mg PO BID Docusate Sodium 100 mg [Colace 100 MG] Med 10/06/20 10:00 Discontinued 100 mg PO DAILY Duloxetine HCl 30 mg [Cymbalta 30 MG Capsule] Med 10/05/20 22:00 Discontinued 60 mg PO BID Famotidine 20 mg Vial [Pepcid 20 MG VIAL] Med 10/05/20 22:00 Discontinued 20 mg IV Q12HT Fentanyl 75Mcg Patch [Duragesic 75 MCG Patch] Med 10/05/20 19:30 Discontinued 75 mcg .ROUTE .STK-MED ONE Fentanyl 75Mcg Patch [Duragesic 75 MCG Patch] Med 10/05/20 19:45 Discontinued 75 mcg TD Q72H Ferrous Sulfate 325 mg [Feosol 325 mg] Med 10/06/20 10:00 Discontinued 325 mg PO DAILY Fluticasone/Salmeterol [Advair Hfa Common Med 10/05/20 19:00 Discontinued canister*] 2 puff IH BIDRT Gabapentin 400 mg [Neurontin 400 MG] Med 10/05/20 22:00 Discontinued 800 mg PO TID Guaifenesin 600 mg ER [Mucinex 600MG ER Tabs] Med 10/05/20 22:00 Discontinued 1,200 mg PO BID Heparin Flush 500 units/5 ml [Heparin Lock Flush 100 Med 10/05/20 18:58 Discontinued Units/ml 5ml Syringe] 500 units PORT FLUSH PRN PRN Insulin Glargine [Lantus Insulin] Med 10/05/20 22:00 Discontinued 35 unit SQ BID Insulin Regular, Human [Humulin R] Med 10/05/20 16:50 Discontinued See Dose Instructions SQ UD PRN Levofloxacin [Levofloxacin 750Mg/150Ml D5w] Med 10/06/20 10:00 Discontinued 750 mg in 150 ml IV Q24H10 Lisinopril 10 mg [Zestril 10 MG] Med 10/06/20 10:00 Discontinued 5 mg PO Q48H Methylprednis Sod Succ 125 mg* [solu-MEDROL 125 MG] Med 10/05/20 22:32 Discontinued 125 mg .ROUTE .STK-MED ONE Methylprednis Sod Succ 125 mg* [solu-MEDROL 125 MG] Med 10/05/20 16:50 Discontinued 40 mg IV Q6H Methylprednis Sod Succ 125 mg* [solu-MEDROL 125 MG] Med 10/06/20 06:00 Discontinued 40 mg IV Q6H Methylprednisolone Sod Suc 40M [solu-MEDROL 40 MG] Med 10/05/20 17:59 Discontinued 40 mg .ROUTE .STK-MED ONE Morphine Sulfate 4 mg Inj Med 10/05/20 16:50 Discontinued 4 mg IV Q4H PRN PRN NaCl 0.9% 1000 ml [Sodium Chloride 0.9% 1000 ML] 1,000 Med 10/05/20 19:00 Discontinued ml IV 20 mls/hr NaCl 0.9% 100Ml [Sodium Chloride 0.9% 100 ML BAG] 100 Med 10/05/20 18:08 Discontinued ml .ROUTE UD NaCl 0.9% 100Ml [Sodium Chloride 0.9% 100 ML BAG] 100 Med 10/05/20 22:34 Discontinued ml .ROUTE UD Ondansetron HCl 4 mg/2 ml [Zofran 4 MG/2 ML VIAL] Med 10/05/20 16:50 Discontinued 4 mg IV Q6H PRN PRN Simvastatin 20Mg [Zocor 20Mg] Med 10/05/20 22:00 Discontinued 40 mg PO HS Tamsulosin HCl 0.4 mg [Flomax 0.4 MG] Med 10/06/20 22:00 Discontinued 0.4 mg PO HS Tamsulosin HCl 0.4 mg [Flomax 0.4 MG] Med 10/05/20 22:30 Discontinued 0.4 mg PO ONCE ONE OT Screen per Nursing Assess ONCE OT 10/05/20 17:53 Completed PT Screen per Nursing Assess ONCE PT 10/05/20 17:53 Completed Incentive Spirometry TID RT 10/05/20 18:51 Completed Oxygen Nasal Cannula 3 lpm RT 10/05/20 16:50 Completed Pulse Oximetry .spot check RT 10/05/20 17:44 Completed RT Screen per Nursing Assess ONCE RT 10/05/20 17:53 Completed Respiratory Therapy Assessment DAILY RT 10/05/20 17:44 Completed Patient Care Notes (Last 24 hours) 10/06/20 14:19 Nursing Note by Akiko Neil Discharge instructions and education discussed with pt's spouse, Lelo. pt discharged at this time. Initialized on 10/06/20 14:19 - END OF NOTE 10/06/20 13:00 Nursing Note by Akiko Neil Discharge instructions and education given and understood. Initialized on 10/06/20 13:00 - END OF NOTE 10/06/20 11:52 Case Management Note by Mireille Henao CALLED TO CHECK ON REFERRAL FOR [facility]- THEIR OFFICE IS CLOSED TODAY IN OBSERVANCE OF HOLIDAY. WILL CALL AND CHECK ON REFERRAL TOMORROW. PATIENT ALSO NO LONGER GOING HOME WITH CATHETER Initialized on 10/06/20 11:52 - END OF NOTE 10/06/20 11:20 SBAR Note by Akiko Neil SITUATION I am calling about JENN EDWARDS the patient's code status is Full Code The problem I am calling about is: Pt up to [facility]; voided 275cc. Called and reported to Dr Fraser. Order for F/C dc'd. ASSESSMENT RECOMMENDATION Physician notified at 1120 New Orders received: Vital Signs (Last 4 hours) Temp Pulse Resp BP Pulse Ox 10/06/20 07:25 98.2 F 88 16 137/64 99 Diagnois, Code Status Date of Arrival on Unit 10/05/20 Admitted From Emergency Dept Diagnosis Left pneumonia/COPD Resucitation Status Full Code Intake and Output 12 Hours 10/06/20 10/06/20 06:59 18:59 Intake Total 771 380 Output Total 1100 Balance -329 380 Weight 94.2 kg Intake: Intake, Oral Amount 300 380 Intake, IV Amount 471 Output: Output, Urine Amount 1100 Physical Assessment Anxiety Level Awake,Moderate Mental Status Alert Patient Orientation Person,Place,Time Coma Scale Total 15 Breath Sounds [Anterior/ Clear Posterior Right] Breath Sounds [Posterior Left Clear Upper Lobe] Breath Sounds [Posterior Left Diminished Bases] Breath Sounds [Anterior/ Clear Posterior] Breath Sounds [Bilateral] Diminished Cardiac Rhythm-SCC Sinus Rhythm Change from Baseline: No Bowel Sounds [All Quadrants] Active Abdomen Description Soft,Large,Round,Non-Tender Urine Appearance Not Assessed Urine Color Straw Skin Color Pale Skin Temperature Warm Pain Scale (Last 12 Hours) Pain Intensity 2 Pain Intensity 6 Pain Intensity 6 Pain Intensity 2 Pain Intensity 6 Pain Intensity 6 Pain Intensity 0 PAST MEDICAL HISTORY Neurological History Peripheral Neuropathy,TIA ENT History No Pertinent History Endocrine Medical History Diabetes Type II Respiratory History CHF,COPD,Emphysema,Lung Cancer Cardiac History Congestive Heart Failure GI Medical History Esophageal Disorder,GERD,Hernia History No Pertinent History Pyscho-Social History Anxiety,Depression Communicable Disease No Pertinent History Comment . Diabetic (Last 12 Hours) POCT Glucose (LAST VALUE) {206 mg/dL (74 to 106) H} POCT Glucose (LAST VALUE) {206 mg/dL (74 to 106) H} Lab Results (Last 12 Hours) 10/06/20 10/06/20 10/06/20 Range/Units 07:09 04:25 04:25 WBC 11.7 H (4.0-10.5) K/mm3 RBC 2.67 L (4.1-5.6) M/mm3 Hgb 7.7 L (12.5-18.0) gm/dl Hct 26.9 L (42-50) % MCV 100.7 H (78-100) fl MCH 28.8 (26-32) pg MCHC 28.6 L (32-36) g/dl RDW 14.3 H (11.5-14.0) % Plt Count 256 (150-450) K/mm3 MPV 8.5 (7.5-11.0) fl Gran % 94.4 H (36.0-66.0) % Eos # (Auto) 0 (0-0.5) Absolute Lymphs (auto) 0.43 L (1.0-4.6) Absolute Monos (auto) 0.20 (0.0-1.3) Lymphocytes % 3.7 L (24.0-44.0) % Monocytes % 1.7 (0.0-12.0) % Eosinophils % 0.0 (0.00-5.0) % Basophils % 0.2 (0.0-0.4) % Absolute Granulocytes 11.00 H (1.4-6.9) Basophils # 0.02 (0-0.4) Sodium 137 (137-145) mmol/L Potassium 4.3 (3.5-5.1) mmol/L Chloride 96 L (98-107) mmol/L Carbon Dioxide 36 H (22-30) mmol/L Anion Gap 9.4 (5-15) MEQ/L BUN 15 (9-20) mg/dL Creatinine 0.63 L (0.66-1.25) mg/dL Estimated GFR > 60.0 ML/MIN Glucose 228 H (74-106) mg/dL POC Glucometer 206 H (74 to 106) mg/dL Calcium 9.0 (8.4-10.2) mg/dL Total Bilirubin 0.10 L (0.2-1.3) mg/dL AST 17 (17-59) U/L ALT 20 (0-50) U/L Alkaline Phosphatase 51 (38-126) U/L Serum Total Protein 6.9 (6.3-8.2) g/dL Albumin 3.6 (3.5-5.0) g/dL Orders (Last 12 Hours) Category Date Time Status Catheter Care Record Q6H Care 10/06/20 10:59 Active Pace [Catheter-[place] Pace] STAT Care 10/06/20 10:59 Active Miscellaneous Nursing Order ROUTINE Care 10/06/20 10:59 Active Discharge Planning,Consult Routine Discharge 10/06/20 Active Bumetanide 1 mg [Bumex 1 mg] Med 10/06/20 10:00 Active 1 mg PO QAM Docusate Sodium 100 mg [Colace 100 MG] Med 10/06/20 10:00 Active 100 mg PO DAILY Ferrous Sulfate 325 mg [Feosol 325 mg] Med 10/06/20 10:00 Active 325 mg PO DAILY Levofloxacin [Levofloxacin 750Mg/150Ml D5w] Med 10/06/20 10:00 Active 750 mg in 150 ml IV Q24H10 Lisinopril 10 mg [Zestril 10 MG] Med 10/06/20 10:00 Active 5 mg PO Q48H Methylprednis Sod Succ 125 mg* [solu-MEDROL 125 MG] Med 10/06/20 06:00 Active 40 mg IV Q6H Tamsulosin HCl 0.4 mg [Flomax 0.4 MG] Med 10/06/20 22:00 Active 0.4 mg PO HS Active Visit Medications Generic Name Dose Route Start Last Admin Trade Name Freq PRN Reason Stop Dose Admin Acetaminophen 650 mg 10/05/20 16:50 Tylenol 325 Mg PO 11/04/20 16:49 Q4H PRN PRN PAIN AND/OR FEVER Albuterol/Ipratropium 3 ml 10/05/20 16:50 Duoneb 0.5-3 Mg/3 Ml Neb IH 11/04/20 16:49 Q4HPRN PRN SHORTNESS OF BREATH/WHEEZING Bumetanide 1 mg 10/06/20 10:00 10/06/20 09:59 Bumex 1 Mg PO 11/05/20 09:59 1 mg QAM REZA Administration Buspirone HCl 10 mg 10/05/20 22:00 10/06/20 09:59 Buspar 5 Mg PO 11/04/20 21:59 10 mg BID REZA Administration Carvedilol 6.25 mg 10/05/20 22:00 10/06/20 09:59 Coreg 6.25 Mg PO 11/04/20 21:59 6.25 mg BID REZA Administration Docusate Sodium 100 mg 10/06/20 10:00 10/06/20 09:59 Colace 100 Mg PO 11/05/20 09:59 100 mg DAILY REZA Administration Duloxetine HCl 60 mg 10/05/20 22:00 10/06/20 09:59 Cymbalta 30 Mg Capsule PO 11/04/20 21:59 60 mg BID REZA Administration Famotidine 20 mg 10/05/20 22:00 10/06/20 09:59 Pepcid 20 Mg Vial IV 11/04/20 21:59 20 mg Q12HT REZA Administration Fentanyl 75 mcg 10/05/20 19:45 10/05/20 19:43 Duragesic 75 Mcg Patch TD 10/10/20 19:44 75 mcg Q72H REZA Administration Ferrous Sulfate 325 mg 10/06/20 10:00 10/06/20 09:59 Feosol 325 Mg PO 11/05/20 09:59 325 mg DAILY REZA Administration Gabapentin 800 mg 10/05/20 22:00 10/06/20 09:59 Neurontin 400 Mg PO 11/04/20 21:59 800 mg TID REZA Administration Guaifenesin 1,200 mg 10/05/20 22:00 10/06/20 09:59 Mucinex 600mg Er Tabs PO 11/04/20 21:59 1,200 mg BID REZA Administration Heparin Sodium (Beef Lung) 500 units 10/05/20 18:58 10/06/20 10:10 Heparin Lock Flush 100 Units/Ml 5ml Syringe PORT FLUSH 11/04/20 18:57 500 units PRN PRN Administration IV PORT FLUSH Levofloxacin/Dextrose 750 mg in 150 mls @ 100 mls/hr 10/06/20 10:00 10/06/20 10:24 Levofloxacin 750mg/150ml D5w IV 11/05/20 09:59 100 mls/hr Q24H10 REZA Administration Aztreonam 1 gm/ Sodium 100 mls @ 200 mls/hr 10/05/20 18:00 10/06/20 05:08 Chloride IV 10/08/20 17:59 200 mls/hr Q6HT REZA Administration Insulin Glargine 35 unit 10/05/20 22:00 10/06/20 09:59 Lantus Insulin SQ 11/04/20 21:59 35 unit BID REZA Administration Insulin Human Regular 0 unit 10/05/20 16:50 10/06/20 08:13 Humulin R SQ 11/04/20 16:49 5 unit UD PRN Administration HYPERGLYCEMIA Lisinopril 5 mg 10/06/20 10:00 10/06/20 10:23 Zestril 10 Mg PO 11/05/20 09:59 5 mg Q48H REZA Administration Methylprednisolone Sodium Succinate 40 mg 10/06/20 06:00 10/06/20 05:07 Solu-Medrol 125 Mg IV 11/05/20 05:59 40 mg Q6H REZA Administration Morphine Sulfate 4 mg 10/05/20 16:50 10/06/20 08:13 Morphine Sulfate 4 Mg Inj IV 10/10/20 16:49 4 mg Q4H PRN PRN Administration PAIN Ondansetron HCl 4 mg 10/05/20 16:50 Zofran 4 Mg/2 Ml Vial IV 11/04/20 16:49 Q6H PRN PRN NAUSEA/VOMITING Fluticasone/Salmeterol 2 puff 10/05/20 19:00 10/06/20 06:58 Advair Hfa 115/21 Common Canister* IH 11/04/20 18:59 2 puff BIDRT REZA Administration Simvastatin 40 mg 10/05/20 22:00 10/05/20 21:20 Zocor 20mg PO 11/04/20 21:59 40 mg HS REZA Administration Tamsulosin HCl 0.4 mg 10/06/20 22:00 Flomax 0.4 Mg PO 11/05/20 21:59 HS REZA Initialized on 10/06/20 11:20 - END OF NOTE 10/06/20 11:11 Case Management Note by Mireille Henao REFERRAL FAXED TO [facility] PER PATIENT REQUEST. Initialized on 10/06/20 11:11 - END OF NOTE 10/06/20 10:56 SBAR Note by Akiko Neil SITUATION I am calling about JENN EDWARDS the patient's code status is Full Code The problem I am calling about is: Called Dr Fraser regarding pt has attempted to void times 2 without success, reported bladder ultrasound, reported pt HGB; new orders received. ASSESSMENT RECOMMENDATION Physician notified at 1056 New Orders received: Vital Signs (Last 4 hours) Temp Pulse Resp BP Pulse Ox 10/06/20 07:25 98.2 F 88 16 137/64 99 10/06/20 07:05 92 H 18 95 Diagnois, Code Status Date of Arrival on Unit 10/05/20 Admitted From Emergency Dept Diagnosis Left pneumonia/COPD Resucitation Status Full Code Intake and Output 12 Hours 10/06/20 10/06/20 06:59 18:59 Intake Total 771 380 Output Total 1100 Balance -329 380 Weight 94.2 kg Intake: Intake, Oral Amount 300 380 Intake, IV Amount 471 Output: Output, Urine Amount 1100 Physical Assessment Anxiety Level Awake,Moderate Mental Status Alert Patient Orientation Person,Place,Time Coma Scale Total 15 Breath Sounds [Anterior/ Clear Posterior Right] Breath Sounds [Posterior Left Clear Upper Lobe] Breath Sounds [Posterior Left Diminished Bases] Breath Sounds [Anterior/ Clear Posterior] Breath Sounds [Bilateral] Diminished Cardiac Rhythm-SCCH Sinus Rhythm Change from Baseline: No Bowel Sounds [All Quadrants] Active Abdomen Description Soft,Large,Round,Non-Tender Urine Appearance Not Assessed Urine Color Straw Skin Color Pale Skin Temperature Warm Pain Scale (Last 12 Hours) Pain Intensity 2 Pain Intensity 6 Pain Intensity 6 Pain Intensity 2 Pain Intensity 6 Pain Intensity 6 Pain Intensity 0 Pain Intensity 0 PAST MEDICAL HISTORY Neurological History Peripheral Neuropathy,TIA ENT History No Pertinent History Endocrine Medical History Diabetes Type II Respiratory History CHF,COPD,Emphysema,Lung Cancer Cardiac History Congestive Heart Failure GI Medical History Esophageal Disorder,GERD,Hernia History No Pertinent History Pyscho-Social History Anxiety,Depression Communicable Disease No Pertinent History Comment . Diabetic (Last 12 Hours) POCT Glucose (LAST VALUE) {206 mg/dL (74 to 106) H} POCT Glucose (LAST VALUE) {206 mg/dL (74 to 106) H} Lab Results (Last 12 Hours) 10/06/20 10/06/20 10/06/20 Range/Units 07:09 04:25 04:25 WBC 11.7 H (4.0-10.5) K/mm3 RBC 2.67 L (4.1-5.6) M/mm3 Hgb 7.7 L (12.5-18.0) gm/dl Hct 26.9 L (42-50) % MCV 100.7 H (78-100) fl MCH 28.8 (26-32) pg MCHC 28.6 L (32-36) g/dl RDW 14.3 H (11.5-14.0) % Plt Count 256 (150-450) K/mm3 MPV 8.5 (7.5-11.0) fl Gran % 94.4 H (36.0-66.0) % Eos # (Auto) 0 (0-0.5) Absolute Lymphs (auto) 0.43 L (1.0-4.6) Absolute Monos (auto) 0.20 (0.0-1.3) Lymphocytes % 3.7 L (24.0-44.0) % Monocytes % 1.7 (0.0-12.0) % Eosinophils % 0.0 (0.00-5.0) % Basophils % 0.2 (0.0-0.4) % Absolute Granulocytes 11.00 H (1.4-6.9) Basophils # 0.02 (0-0.4) Sodium 137 (137-145) mmol/L Potassium 4.3 (3.5-5.1) mmol/L Chloride 96 L (98-107) mmol/L Carbon Dioxide 36 H (22-30) mmol/L Anion Gap 9.4 (5-15) MEQ/L BUN 15 (9-20) mg/dL Creatinine 0.63 L (0.66-1.25) mg/dL Estimated GFR > 60.0 ML/MIN Glucose 228 H (74-106) mg/dL POC Glucometer 206 H (74 to 106) mg/dL Calcium 9.0 (8.4-10.2) mg/dL Total Bilirubin 0.10 L (0.2-1.3) mg/dL AST 17 (17-59) U/L ALT 20 (0-50) U/L Alkaline Phosphatase 51 (38-126) U/L Troponin I (0.000-0.034) ng/mL Serum Total Protein 6.9 (6.3-8.2) g/dL Albumin 3.6 (3.5-5.0) g/dL 10/05/20 Range/Units 22:34 WBC (4.0-10.5) K/mm3 RBC (4.1-5.6) M/mm3 Hgb (12.5-18.0) gm/dl Hct (42-50) % MCV (78-100) fl MCH (26-32) pg MCHC (32-36) g/dl RDW (11.5-14.0) % Plt Count (150-450) K/mm3 MPV (7.5-11.0) fl Gran % (36.0-66.0) % Eos # (Auto) (0-0.5) Absolute Lymphs (auto) (1.0-4.6) Absolute Monos (auto) (0.0-1.3) Lymphocytes % (24.0-44.0) % Monocytes % (0.0-12.0) % Eosinophils % (0.00-5.0) % Basophils % (0.0-0.4) % Absolute Granulocytes (1.4-6.9) Basophils # (0-0.4) Sodium (137-145) mmol/L Potassium (3.5-5.1) mmol/L Chloride (98-107) mmol/L Carbon Dioxide (22-30) mmol/L Anion Gap (5-15) MEQ/L BUN (9-20) mg/dL Creatinine (0.66-1.25) mg/dL Estimated GFR ML/MIN Glucose (74-106) mg/dL POC Glucometer (74 to 106) mg/dL Calcium (8.4-10.2) mg/dL Total Bilirubin (0.2-1.3) mg/dL AST (17-59) U/L ALT (0-50) U/L Alkaline Phosphatase (38-126) U/L Troponin I < 0.012 (0.000-0.034) ng/mL Serum Total Protein (6.3-8.2) g/dL Albumin (3.5-5.0) g/dL Orders (Last 12 Hours) Category Date Time Status Discharge Planning,Consult Routine Discharge 10/06/20 Active Bumetanide 1 mg [Bumex 1 mg] Med 10/06/20 10:00 Active 1 mg PO QAM Buspirone HCl 5 mg [Buspar 5 mg] Med 10/05/20 22:00 Active 10 mg PO BID Carvedilol 6.25 mg [Coreg 6.25 MG] Med 10/05/20 22:00 Active 6.25 mg PO BID Docusate Sodium 100 mg [Colace 100 MG] Med 10/06/20 10:00 Active 100 mg PO DAILY Duloxetine HCl 30 mg [Cymbalta 30 MG Capsule] Med 10/05/20 22:00 Active 60 mg PO BID Famotidine 20 mg Vial [Pepcid 20 MG VIAL] Med 10/05/20 22:00 Active 20 mg IV Q12HT Ferrous Sulfate 325 mg [Feosol 325 mg] Med 10/06/20 10:00 Active 325 mg PO DAILY Gabapentin 400 mg [Neurontin 400 MG] Med 10/05/20 22:00 Active 800 mg PO TID Guaifenesin 600 mg ER [Mucinex 600MG ER Tabs] Med 10/05/20 22:00 Active 1,200 mg PO BID Insulin Glargine [Lantus Insulin] Med 10/05/20 22:00 Active 35 unit SQ BID Levofloxacin [Levofloxacin 750Mg/150Ml D5w] Med 10/06/20 10:00 Active 750 mg in 150 ml IV Q24H10 Lisinopril 10 mg [Zestril 10 MG] Med 10/06/20 10:00 Active 5 mg PO Q48H Methylprednis Sod Succ 125 mg* [solu-MEDROL 125 MG] Med 10/06/20 06:00 Active 40 mg IV Q6H Simvastatin 20Mg [Zocor 20Mg] Med 10/05/20 22:00 Active 40 mg PO HS Active Visit Medications Generic Name Dose Route Start Last Admin Trade Name Freq PRN Reason Stop Dose Admin Acetaminophen 650 mg 10/05/20 16:50 Tylenol 325 Mg PO 11/04/20 16:49 Q4H PRN PRN PAIN AND/OR FEVER Albuterol/Ipratropium 3 ml 10/05/20 16:50 Duoneb 0.5-3 Mg/3 Ml Neb IH 11/04/20 16:49 Q4HPRN PRN SHORTNESS OF BREATH/WHEEZING Bumetanide 1 mg 10/06/20 10:00 10/06/20 09:59 Bumex 1 Mg PO 11/05/20 09:59 1 mg QAM REZA Administration Buspirone HCl 10 mg 10/05/20 22:00 10/06/20 09:59 Buspar 5 Mg PO 11/04/20 21:59 10 mg BID REZA Administration Carvedilol 6.25 mg 10/05/20 22:00 10/06/20 09:59 Coreg 6.25 Mg PO 11/04/20 21:59 6.25 mg BID REZA Administration Docusate Sodium 100 mg 10/06/20 10:00 10/06/20 09:59 Colace 100 Mg PO 11/05/20 09:59 100 mg DAILY REZA Administration Duloxetine HCl 60 mg 10/05/20 22:00 10/06/20 09:59 Cymbalta 30 Mg Capsule PO 11/04/20 21:59 60 mg BID REZA Administration Famotidine 20 mg 10/05/20 22:00 10/06/20 09:59 Pepcid 20 Mg Vial IV 11/04/20 21:59 20 mg Q12HT REZA Administration Fentanyl 75 mcg 10/05/20 19:45 10/05/20 19:43 Duragesic 75 Mcg Patch TD 10/10/20 19:44 75 mcg Q72H REZA Administration Ferrous Sulfate 325 mg 10/06/20 10:00 10/06/20 09:59 Feosol 325 Mg PO 11/05/20 09:59 325 mg DAILY REZA Administration Gabapentin 800 mg 10/05/20 22:00 10/06/20 09:59 Neurontin 400 Mg PO 11/04/20 21:59 800 mg TID REZA Administration Guaifenesin 1,200 mg 10/05/20 22:00 10/06/20 09:59 Mucinex 600mg Er Tabs PO 11/04/20 21:59 1,200 mg BID REZA Administration Heparin Sodium (Beef Lung) 500 units 10/05/20 18:58 10/06/20 10:10 Heparin Lock Flush 100 Units/Ml 5ml Syringe PORT FLUSH 11/04/20 18:57 500 units PRN PRN Administration IV PORT FLUSH Levofloxacin/Dextrose 750 mg in 150 mls @ 100 mls/hr 10/06/20 10:00 10/06/20 10:24 Levofloxacin 750mg/150ml D5w IV 11/05/20 09:59 100 mls/hr Q24H10 REZA Administration Aztreonam 1 gm/ Sodium 100 mls @ 200 mls/hr 10/05/20 18:00 10/06/20 05:08 Chloride IV 10/08/20 17:59 200 mls/hr Q6HT REZA Administration Insulin Glargine 35 unit 10/05/20 22:00 10/06/20 09:59 Lantus Insulin SQ 11/04/20 21:59 35 unit BID REZA Administration Insulin Human Regular 0 unit 10/05/20 16:50 10/06/20 08:13 Humulin R SQ 11/04/20 16:49 5 unit UD PRN Administration HYPERGLYCEMIA Lisinopril 5 mg 10/06/20 10:00 10/06/20 10:23 Zestril 10 Mg PO 11/05/20 09:59 5 mg Q48H REZA Administration Methylprednisolone Sodium Succinate 40 mg 10/06/20 06:00 10/06/20 05:07 Solu-Medrol 125 Mg IV 11/05/20 05:59 40 mg Q6H REZA Administration Morphine Sulfate 4 mg 10/05/20 16:50 10/06/20 08:13 Morphine Sulfate 4 Mg Inj IV 10/10/20 16:49 4 mg Q4H PRN PRN Administration PAIN Ondansetron HCl 4 mg 10/05/20 16:50 Zofran 4 Mg/2 Ml Vial IV 11/04/20 16:49 Q6H PRN PRN NAUSEA/VOMITING Fluticasone/Salmeterol 2 puff 10/05/20 19:00 10/06/20 06:58 Advair Hfa 115/21 Common Canister* IH 11/04/20 18:59 2 puff BIDRT REZA Administration Simvastatin 40 mg 10/05/20 22:00 10/05/20 21:20 Zocor 20mg PO 11/04/20 21:59 40 mg HS REZA Administration Initialized on 10/06/20 10:56 - END OF NOTE 10/05/20 18:55 SBAR Note by Akiko Neil SITUATION I am calling about JENN EDWARDS the patient's code status is Full Code The problem I am calling about is: Dr Quinones called regarding pt's home meds; received new orders. ASSESSMENT RECOMMENDATION Physician notified at 1855 New Orders received: Vital Signs (Last 4 hours) Temp Pulse Resp BP Pulse Ox 10/05/20 17:45 107 H 20 100 10/05/20 17:25 97.9 F 98 H 16 138/59 100 10/05/20 16:50 97.9 F 98 H 16 138/59 100 Diagnois, Code Status Date of Arrival on Unit 10/05/20 Admitted From Emergency Dept Diagnosis Left pneumonia/COPD Resucitation Status Full Code Intake and Output 12 Hours 10/05/20 10/05/20 06:59 18:59 Intake Total 60 Output Total 200 Balance -140 Weight 94.2 kg Intake: Intake, Oral Amount 60 Output: Output, Urine Amount 200 Physical Assessment Mental Status Alert Patient Orientation Person,Place,Time Coma Scale Total 15 Breath Sounds [Anterior/ Clear Posterior Right] Breath Sounds [Posterior Left Clear Upper Lobe] Breath Sounds [Posterior Left Crackles Bases] Breath Sounds [Anterior/ Diminished Posterior] Breath Sounds [Bilateral] Diminished Cardiac Rhythm-SCCH Sinus Rhythm Bowel Sounds [All Quadrants] Active Abdomen Description Soft,Large,Round,Non-Tender Urine Appearance Clear Urine Color Straw Skin Color Pale Skin Temperature Warm Pain Scale (Last 12 Hours) Pain Intensity 3 Pain Intensity 6 Pain Intensity 6 Pain Intensity 6 Pain Intensity 5 Pain Intensity 5 Pain Intensity 5 Pain Intensity 5 Pain Intensity 5 Pain Intensity 5 Pain Intensity 5 PAST MEDICAL HISTORY Neurological History Peripheral Neuropathy,TIA ENT History No Pertinent History Endocrine Medical History Diabetes Type II Respiratory History CHF,COPD,Emphysema,Lung Cancer Cardiac History Congestive Heart Failure GI Medical History Esophageal Disorder,GERD,Hernia History No Pertinent History Pyscho-Social History Anxiety,Depression Communicable Disease No Pertinent History Comment . Diabetic (Last 12 Hours) POCT Glucose (LAST VALUE) {227 mg/dL (74 to 106) H} Diet Order (Last 12 Hours) 10/05/20 Lunch Heart-Healthy Diet Lab Results (Last 12 Hours) 10/05/20 10/05/20 10/05/20 Range/Units 17:18 16:02 15:00 WBC (4.0-10.5) K/mm3 RBC (4.1-5.6) M/mm3 Hgb (12.5-18.0) gm/dl Hct (42-50) % MCV (78-100) fl MCH (26-32) pg MCHC (32-36) g/dl RDW (11.5-14.0) % Plt Count (150-450) K/mm3 MPV (7.5-11.0) fl Gran % (36.0-66.0) % Eos # (Auto) (0-0.5) Absolute Lymphs (auto) (1.0-4.6) Absolute Monos (auto) (0.0-1.3) Lymphocytes % (24.0-44.0) % Monocytes % (0.0-12.0) % Eosinophils % (0.00-5.0) % Basophils % (0.0-0.4) % Absolute Granulocytes (1.4-6.9) Basophils # (0-0.4) pO2/FiO2 Ratio % VBG pH (7.32-7.42) VBG pCO2 at Pat Temp (42-55) mm/Hg VBG pO2 at Pat Temp (25-40) mm/Hg VBG HCO3 (22-28) meq/L VBG O2 Sat ([place]) (95-100) VBG Base Excess (-2.0-2.0) VBG Hemoglobin VBG Carboxyhemoglobin (0.0-6.9) % T HGB POC Potassium (3.5-5.1) Sodium (137-145) mmol/L Potassium (3.5-5.1) mmol/L Chloride (98-107) mmol/L Carbon Dioxide (22-30) mmol/L Anion Gap (5-15) MEQ/L BUN (9-20) mg/dL Creatinine (0.66-1.25) mg/dL Estimated GFR ML/MIN Glucose (74-106) mg/dL POC Glucometer 227 H (74 to 106) mg/dL Calcium (8.4-10.2) mg/dL Total Bilirubin (0.2-1.3) mg/dL AST (17-59) U/L ALT (0-50) U/L Alkaline Phosphatase (38-126) U/L Troponin I < 0.012 (0.000-0.034) ng/mL NT-Pro-B Natriuret Pep (0-900) pg/mL Serum Total Protein (6.3-8.2) g/dL Albumin (3.5-5.0) g/dL Urine Color (YELLOW) Urine Appearance (CLEAR) Urine pH (5-6) Ur Specific [place] (1.005-1.025) Urine Protein (Negative) Urine Ketones (NEGATIVE) Urine Blood (0-5) C[place]ar/ul Urine Nitrite (NEGATIVE) Urine Bilirubin (NEGATIVE) Urine Urobilinogen (0-1) mg/dL Ur Leukocyte Esterase (NEGATIVE) Urine WBC (Auto) (0-5) /HPF Urine RBC (Auto) (0-2) /HPF U Epithel Cells (Auto) (FEW) /HPF Urine Bacteria (Auto) (NEGATIVE) /HPF Urine Culture Reflexed (NO) Urine Glucose (NEGATIVE) mg/dL Influenza Type A Ag (NEGATIVE) Influenza Type B Ag (NEGATIVE) SARS-CoV-2 (PCR) NEGATIVE (NEGATIVE) Group A Strep Antibody (NEGATIVE) Slides for Path Review 10/05/20 10/05/20 10/05/20 Range/Units 12:58 12:34 11:05 WBC (4.0-10.5) K/mm3 RBC (4.1-5.6) M/mm3 Hgb (12.5-18.0) gm/dl Hct (42-50) % MCV (78-100) fl MCH (26-32) pg MCHC (32-36) g/dl RDW (11.5-14.0) % Plt Count (150-450) K/mm3 MPV (7.5-11.0) fl Gran % (36.0-66.0) % Eos # (Auto) (0-0.5) Absolute Lymphs (auto) (1.0-4.6) Absolute Monos (auto) (0.0-1.3) Lymphocytes % (24.0-44.0) % Monocytes % (0.0-12.0) % Eosinophils % (0.00-5.0) % Basophils % (0.0-0.4) % Absolute Granulocytes (1.4-6.9) Basophils # (0-0.4) pO2/FiO2 Ratio 34.0 % VBG pH 7.35 (7.32-7.42) VBG pCO2 at Pat Temp 63 H* (42-55) mm/Hg VBG pO2 at Pat Temp 47 H (25-40) mm/Hg VBG HCO3 34.8 H* (22-28) meq/L VBG O2 Sat ([place]) 81.3 L (95-100) VBG Base Excess 7.0 H (-2.0-2.0) VBG Hemoglobin 8.4 VBG Carboxyhemoglobin 3.5 (0.0-6.9) % T HGB POC Potassium 4.2 (3.5-5.1) Sodium (137-145) mmol/L Potassium (3.5-5.1) mmol/L Chloride (98-107) mmol/L Carbon Dioxide (22-30) mmol/L Anion Gap (5-15) MEQ/L BUN (9-20) mg/dL Creatinine (0.66-1.25) mg/dL Estimated GFR ML/MIN Glucose (74-106) mg/dL POC Glucometer (74 to 106) mg/dL Calcium (8.4-10.2) mg/dL Total Bilirubin (0.2-1.3) mg/dL AST (17-59) U/L ALT (0-50) U/L Alkaline Phosphatase (38-126) U/L Troponin I < 0.012 (0.000-0.034) ng/mL NT-Pro-B Natriuret Pep (0-900) pg/mL Serum Total Protein (6.3-8.2) g/dL Albumin (3.5-5.0) g/dL Urine Color YELLOW (YELLOW) Urine Appearance CLEAR (CLEAR) Urine pH 6.0 (5-6) Ur Specific [place] 1.013 (1.005-1.025) Urine Protein NEGATIVE (Negative) Urine Ketones NEGATIVE (NEGATIVE) Urine Blood SMALL (0-5) [place]/ul Urine Nitrite NEGATIVE (NEGATIVE) Urine Bilirubin NEGATIVE (NEGATIVE) Urine Urobilinogen NEGATIVE (0-1) mg/dL Ur Leukocyte Esterase NEGATIVE (NEGATIVE) Urine WBC (Auto) NONE (0-5) /HPF Urine RBC (Auto) 6-10 (0-2) /HPF U Epithel Cells (Auto) NONE (FEW) /HPF Urine Bacteria (Auto) NONE (NEGATIVE) /HPF Urine Culture Reflexed NO (NO) Urine Glucose NEGATIVE (NEGATIVE) mg/dL Influenza Type A Ag (NEGATIVE) Influenza Type B Ag (NEGATIVE) SARS-CoV-2 (PCR) (NEGATIVE) Group A Strep Antibody (NEGATIVE) Slides for Path Review 10/05/20 10/05/20 10/05/20 Range/Units 10:20 10:20 10:20 WBC (4.0-10.5) K/mm3 RBC (4.1-5.6) M/mm3 Hgb (12.5-18.0) gm/dl Hct (42-50) % MCV (78-100) fl MCH (26-32) pg MCHC (32-36) g/dl RDW (11.5-14.0) % Plt Count (150-450) K/mm3 MPV (7.5-11.0) fl Gran % (36.0-66.0) % Eos # (Auto) (0-0.5) Absolute Lymphs (auto) (1.0-4.6) Absolute Monos (auto) (0.0-1.3) Lymphocytes % (24.0-44.0) % Monocytes % (0.0-12.0) % Eosinophils % (0.00-5.0) % Basophils % (0.0-0.4) % Absolute Granulocytes (1.4-6.9) Basophils # (0-0.4) pO2/FiO2 Ratio % VBG pH (7.32-7.42) VBG pCO2 at Pat Temp (42-55) mm/Hg VBG pO2 at Pat Temp (25-40) mm/Hg VBG HCO3 (22-28) meq/L VBG O2 Sat ([place]) (95-100) VBG Base Excess (-2.0-2.0) VBG Hemoglobin VBG Carboxyhemoglobin (0.0-6.9) % T HGB POC Potassium (3.5-5.1) Sodium (137-145) mmol/L Potassium (3.5-5.1) mmol/L Chloride (98-107) mmol/L Carbon Dioxide (22-30) mmol/L Anion Gap (5-15) MEQ/L BUN (9-20) mg/dL Creatinine (0.66-1.25) mg/dL Estimated GFR ML/MIN Glucose (74-106) mg/dL POC Glucometer (74 to 106) mg/dL Calcium (8.4-10.2) mg/dL Total Bilirubin (0.2-1.3) mg/dL AST (17-59) U/L ALT (0-50) U/L Alkaline Phosphatase (38-126) U/L Troponin I < 0.012 (0.000-0.034) ng/mL NT-Pro-B Natriuret Pep (0-900) pg/mL Serum Total Protein (6.3-8.2) g/dL Albumin (3.5-5.0) g/dL Urine Color (YELLOW) Urine Appearance (CLEAR) Urine pH (5-6) Ur Specific Pel[place] (1.005-1.025) Urine Protein (Negative) Urine Ketones (NEGATIVE) Urine Blood (0-5) César/ul Urine Nitrite (NEGATIVE) Urine Bilirubin (NEGATIVE) Urine Urobilinogen (0-1) mg/dL Ur Leukocyte Esterase (NEGATIVE) Urine WBC (Auto) (0-5) /HPF Urine RBC (Auto) (0-2) /HPF U Epithel Cells (Auto) (FEW) /HPF Urine Bacteria (Auto) (NEGATIVE) /HPF Urine Culture Reflexed (NO) Urine Glucose (NEGATIVE) mg/dL Influenza Type A Ag NEGATIVE (NEGATIVE) Influenza Type B Ag NEGATIVE (NEGATIVE) SARS-CoV-2 (PCR) (NEGATIVE) Group A Strep Antibody NOT DETECTED (NEGATIVE) Slides for Path Review 10/05/20 10/05/20 Range/Units 10:20 10:20 WBC 12.7 H (4.0-10.5) K/mm3 RBC 2.84 L (4.1-5.6) M/mm3 Hgb 8.1 L (12.5-18.0) gm/dl Hct 28.6 L (42-50) % MCV 100.7 H (78-100) fl MCH 28.5 (26-32) pg MCHC 28.3 L (32-36) g/dl RDW 14.3 H (11.5-14.0) % Plt Count 233 (150-450) K/mm3 MPV 8.4 (7.5-11.0) fl Gran % 86.8 H (36.0-66.0) % Eos # (Auto) 0.21 (0-0.5) Absolute Lymphs (auto) 0.54 L (1.0-4.6) Absolute Monos (auto) 0.92 (0.0-1.3) Lymphocytes % 4.2 L (24.0-44.0) % Monocytes % 7.2 (0.0-12.0) % Eosinophils % 1.6 (0.00-5.0) % Basophils % 0.2 (0.0-0.4) % Absolute Granulocytes 11.04 H (1.4-6.9) Basophils # 0.03 (0-0.4) pO2/FiO2 Ratio % VBG pH (7.32-7.42) VBG pCO2 at Pat Temp (42-55) mm/Hg VBG pO2 at Pat Temp (25-40) mm/Hg VBG HCO3 (22-28) meq/L VBG O2 Sat (Kal[place]) (95-100) VBG Base Excess (-2.0-2.0) VBG Hemoglobin VBG Carboxyhemoglobin (0.0-6.9) % T HGB POC Potassium (3.5-5.1) Sodium 138 (137-145) mmol/L Potassium 4.0 (3.5-5.1) mmol/L Chloride 97 L (98-107) mmol/L Carbon Dioxide 35 H (22-30) mmol/L Anion Gap 9.9 (5-15) MEQ/L BUN 13 (9-20) mg/dL Creatinine 0.62 L (0.66-1.25) mg/dL Estimated GFR > 60.0 ML/MIN Glucose 102 (74-106) mg/dL POC Glucometer (74 to 106) mg/dL Calcium 8.9 (8.4-10.2) mg/dL Total Bilirubin 0.20 (0.2-1.3) mg/dL AST 18 (17-59) U/L ALT 20 (0-50) U/L Alkaline Phosphatase 58 (38-126) U/L Troponin I (0.000-0.034) ng/mL NT-Pro-B Natriuret Pep 318 (0-900) pg/mL Serum Total Protein 7.2 (6.3-8.2) g/dL Albumin 3.7 (3.5-5.0) g/dL Urine Color (YELLOW) Urine Appearance (CLEAR) Urine pH (5-6) Ur Specific Pel[place] (1.005-1.025) Urine Protein (Negative) Urine Ketones (NEGATIVE) Urine Blood (0-5) César/ul Urine Nitrite (NEGATIVE) Urine Bilirubin (NEGATIVE) Urine Urobilinogen (0-1) mg/dL Ur Leukocyte Esterase (NEGATIVE) Urine WBC (Auto) (0-5) /HPF Urine RBC (Auto) (0-2) /HPF U Epithel Cells (Auto) (FEW) /HPF Urine Bacteria (Auto) (NEGATIVE) /HPF Urine Culture Reflexed (NO) Urine Glucose (NEGATIVE) mg/dL Influenza Type A Ag (NEGATIVE) Influenza Type B Ag (NEGATIVE) SARS-CoV-2 (PCR) (NEGATIVE) Group A Strep Antibody (NEGATIVE) Slides for Path Review YES Orders (Last 12 Hours) Category Date Time Status Bedrest with BRP/BSC ROUTINE Activity 10/05/20 16:50 Active Up With Assistance ROUTINE Activity 10/05/20 16:50 Active Code Status Order ROUTINE Care 10/05/20 16:50 Active Fall Protocol ROUTINE Care 10/05/20 16:50 Active IV Care Q6H Care 10/05/20 16:50 Active Neuro Checks Q4H Care 10/05/20 16:50 Active POCT Glucose Check ACHS Care 10/05/20 16:[address] in Observation ROUTINE Care 10/05/20 16:50 Active Rick Reyese, Apply ROUTINE Care 10/05/20 16:50 Active Telemetry q6h Care 10/05/20 16:50 Active Vital Signs Q4H Care 10/05/20 16:50 Active Weight,Daily 0600 Care 10/05/20 16:50 Active Cardio-Pulmonary Rehab .as ordered Cons 10/05/20 17:18 Active Consult Pulmonology ROUTINE Cons 10/05/20 16:50 Active Home Designer/Discharge Plan ROUTINE Cons 10/05/20 17:53 Active Heart-Healthy Diet Diet 10/05/20 Lunch Active Nutritional Admission Screen ONCE Diet 10/05/20 17:53 Active CHEST 1 VIEW (PORTABLE) Stat Exams 10/05/20 10:12 Taken CBC W DIFF AM.LAB Lab 10/06/20 04:00 Ordered CMP AM.LAB Lab 10/06/20 04:00 Ordered HEMOGLOBIN A1C Urgent Lab 10/05/20 19:00 Ordered TROPONIN Q3H Lab 10/05/20 19:15 Ordered TROPONIN Q3H Lab 10/05/20 22:15 Ordered Acetaminophen 325 mg [Tylenol 325 mg] Med 10/05/20 16:50 Ordered 650 mg PO Q4H PRN PRN Albuterol/Ipratropium 3ml Neb* [DUONEB 0.5-3 MG/3 ml Med 10/05/20 16:50 Ordered Neb] 3 ml IH Q4HPRN PRN Aztreonam 1 gm [Azactam 1 gm] 1 gm Med 10/05/20 18:00 Ordered NaCl 0.9% 100 ml Mini-Bag Plus [Sodium Chloride 100ML MINI-BAG PLUS] 100 ml IV Q6HT Famotidine 20 mg Vial [Pepcid 20 MG VIAL] Med 10/05/20 22:00 Ordered 20 mg IV Q12HT Fluticasone/Salmeterol 115/ [Advair Hfa 115/21 Common Med 10/05/20 19:00 Ordered canister*] 2 puff IH BIDRT Guaifenesin 600 mg ER [Mucinex 600MG ER Tabs] Med 10/05/20 22:00 Ordered 1,200 mg PO BID Insulin Regular, Human [Humulin R] Med 10/05/20 16:50 Ordered See Dose Instructions SQ UD PRN Levofloxacin [Levofloxacin 750Mg/150Ml D5w] Med 10/06/20 10:00 Ordered 750 mg in 150 ml IV Q24H10 Methylprednis Sod Succ 125 mg* [solu-MEDROL 125 MG] Med 10/05/20 16:50 Ordered 40 mg IV Q6H Morphine Sulfate 4 mg Inj Med 10/05/20 16:50 Ordered 4 mg IV Q4H PRN PRN NaCl 0.9% 1000 ml [Sodium Chloride 0.9% 1000 ML] 1,000 Med 10/05/20 19:00 Ordered ml IV 20 mls/hr Ondansetron HCl 4 mg/2 ml [Zofran 4 MG/2 ML VIAL] Med 10/05/20 16:50 Ordered 4 mg IV Q6H PRN PRN OT Screen per Nursing Assess ONCE OT 10/05/20 17:53 Active PT Screen per Nursing Assess ONCE PT 10/05/20 17:53 Active Incentive Spirometry TID RT 10/05/20 18:51 Active Oxygen Nasal Cannula 3 lpm RT 10/05/20 16:50 Active Pulse Oximetry .spot check RT 10/05/20 17:44 Active Respiratory Therapy Assessment DAILY RT 10/05/20 17:44 Active Nursing Notes (Last 12 hours) 10/05/20 18:41 Nursing Note by Lucia Davis I called Pulmonolgy consult to 's office and 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 He was paged per answering service at this time Initialized on 10/05/20 18:41 - END OF NOTE Active Visit Medications Generic Name Dose Route Start Last Admin Trade Name Freq PRN Reason Stop Dose Admin Acetaminophen 650 mg 10/05/20 16:50 Tylenol 325 Mg PO 11/04/20 16:49 Q4H PRN PRN PAIN AND/OR FEVER Albuterol/Ipratropium 3 ml 10/05/20 16:50 Duoneb 0.5-3 Mg/3 Ml Neb IH 11/04/20 16:49 Q4HPRN PRN SHORTNESS OF BREATH/WHEEZING Famotidine 20 mg 10/05/20 22:00 Pepcid 20 Mg Vial IV 11/04/20 21:59 Q12HT REZA Guaifenesin 1,200 mg 10/05/20 22:00 Mucinex 600mg Er Tabs PO 11/04/20 21:59 BID REZA Levofloxacin/Dextrose 750 mg in 150 mls @ 100 mls/hr 10/06/20 10:00 Levofloxacin 750mg/150ml D5w IV 11/05/20 09:59 Q24H10 REZA Aztreonam 1 gm/ Sodium 100 mls @ 200 mls/hr 10/05/20 18:00 10/05/20 18:18 Chloride IV 10/08/20 17:59 200 mls/hr Q6HT REZA Administration Sodium Chloride 1,000 mls @ 20 mls/hr 10/05/20 19:00 Sodium Chloride 0.9% 1000 Ml IV 11/04/20 18:59 .Q24H REZA Insulin Human Regular 0 unit 10/05/20 16:50 10/05/20 18:22 Humulin R SQ 11/04/20 16:49 5 unit UD PRN Administration HYPERGLYCEMIA Methylprednisolone Sodium Succinate 40 mg 10/05/20 16:50 10/05/20 18:16 Solu-Medrol 125 Mg IV 11/04/20 16:49 40 mg Q6H REZA Administration Morphine Sulfate 4 mg 10/05/20 16:50 Morphine Sulfate 4 Mg Inj IV 10/10/20 16:49 Q4H PRN PRN PAIN Ondansetron HCl 4 mg 10/05/20 16:50 Zofran 4 Mg/2 Ml Vial IV 11/04/20 16:49 Q6H PRN PRN NAUSEA/VOMITING Fluticasone/Salmeterol 2 puff 10/05/20 19:00 Advair Hfa 115/ Common Canister* IH 11/04/20 18:59 BIDRT REZA Initialized on 10/05/20 18:55 - END OF NOTE 10/05/20 18:41 Nursing Note by Lucia Davis I called Pulmonolgy consult to 's office and 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 He was paged per answering service at this time Initialized on 10/05/20 18:41 - END OF NOTE - Vitals & Intake/Output Vital Signs: Vital Signs Temperature 98.2 F 10/06/20 12:00 Pulse Rate 88 10/06/20 12:00 Respiratory Rate 16 10/06/20 12:00 Blood Pressure 137/64 10/06/20 12:00 O2 Sat by Pulse Oximetry 99 10/06/20 12:00 Intake & Output: Intake & Output 10/04/20 10/05/20 10/06/20 10/07/20 11:59 11:59 11:59 11:59 Intake Total 1211 340 Output Total 1300 925 Balance -89 -585 Weight 95.254 kg 94.2 kg - Lab Result Diagrams: 10/06/20 04:25 10/06/20 04:25 Lab Results-Last 24 Hrs: Lab Results-Last 24 Hours 10/05/20 10/05/20 10/05/20 Range/Units 15:00 16:02 17:18 WBC (4.0-10.5) K/mm3 RBC (4.1-5.6) M/mm3 Hgb (12.5-18.0) gm/dl Hct (42-50) % MCV (78-100) fl MCH (26-32) pg MCHC (32-36) g/dl RDW (11.5-14.0) % Plt Count (150-450) K/mm3 MPV (7.5-11.0) fl Gran % (36.0-66.0) % Eos # (Auto) (0-0.5) Absolute Lymphs (auto) (1.0-4.6) Absolute Monos (auto) (0.0-1.3) Lymphocytes % (24.0-44.0) % Monocytes % (0.0-12.0) % Eosinophils % (0.00-5.0) % Basophils % (0.0-0.4) % Absolute Granulocytes (1.4-6.9) Basophils # (0-0.4) Sodium (137-145) mmol/L Potassium (3.5-5.1) mmol/L Chloride (98-107) mmol/L Carbon Dioxide (22-30) mmol/L Anion Gap (5-15) MEQ/L BUN (9-20) mg/dL Creatinine (0.66-1.25) mg/dL Estimated GFR ML/MIN Glucose (74-106) mg/dL POC Glucometer 227 H (74 to 106) mg/dL Hemoglobin A1c (4.5-6.0) % Calcium (8.4-10.2) mg/dL Total Bilirubin (0.2-1.3) mg/dL AST (17-59) U/L ALT (0-50) U/L Alkaline Phosphatase (38-126) U/L Troponin I < 0.012 (0.000-0.034) ng/mL Serum Total Protein (6.3-8.2) g/dL Albumin (3.5-5.0) g/dL SARS-CoV-2 (PCR) NEGATIVE (NEGATIVE) Slides for Path Review 10/05/20 10/05/20 10/05/20 Range/Units 19:33 19:33 21:05 WBC (4.0-10.5) K/mm3 RBC (4.1-5.6) M/mm3 Hgb (12.5-18.0) gm/dl Hct (42-50) % MCV (78-100) fl MCH (26-32) pg MCHC (32-36) g/dl RDW (11.5-14.0) % Plt Count (150-450) K/mm3 MPV (7.5-11.0) fl Gran % (36.0-66.0) % Eos # (Auto) (0-0.5) Absolute Lymphs (auto) (1.0-4.6) Absolute Monos (auto) (0.0-1.3) Lymphocytes % (24.0-44.0) % Monocytes % (0.0-12.0) % Eosinophils % (0.00-5.0) % Basophils % (0.0-0.4) % Absolute Granulocytes (1.4-6.9) Basophils # (0-0.4) Sodium (137-145) mmol/L Potassium (3.5-5.1) mmol/L Chloride (98-107) mmol/L Carbon Dioxide (22-30) mmol/L Anion Gap (5-15) MEQ/L BUN (9-20) mg/dL Creatinine (0.66-1.25) mg/dL Estimated GFR ML/MIN Glucose (74-106) mg/dL POC Glucometer 288 H (74 to 106) mg/dL Hemoglobin A1c 6.82 H (4.5-6.0) % Calcium (8.4-10.2) mg/dL Total Bilirubin (0.2-1.3) mg/dL AST (17-59) U/L ALT (0-50) U/L Alkaline Phosphatase (38-126) U/L Troponin I < 0.012 (0.000-0.034) ng/mL Serum Total Protein (6.3-8.2) g/dL Albumin (3.5-5.0) g/dL SARS-CoV-2 (PCR) (NEGATIVE) Slides for Path Review 10/05/20 10/06/20 10/06/20 Range/Units 22:34 04:25 04:25 WBC 11.7 H (4.0-10.5) K/mm3 RBC 2.67 L (4.1-5.6) M/mm3 Hgb 7.7 L (12.5-18.0) gm/dl Hct 26.9 L (42-50) % MCV 100.7 H (78-100) fl MCH 28.8 (26-32) pg MCHC 28.6 L (32-36) g/dl RDW 14.3 H (11.5-14.0) % Plt Count 256 (150-450) K/mm3 MPV 8.5 (7.5-11.0) fl Gran % 94.4 H (36.0-66.0) % Eos # (Auto) 0 (0-0.5) Absolute Lymphs (auto) 0.43 L (1.0-4.6) Absolute Monos (auto) 0.20 (0.0-1.3) Lymphocytes % 3.7 L (24.0-44.0) % Monocytes % 1.7 (0.0-12.0) % Eosinophils % 0.0 (0.00-5.0) % Basophils % 0.2 (0.0-0.4) % Absolute Granulocytes 11.00 H (1.4-6.9) Basophils # 0.02 (0-0.4) Sodium 137 (137-145) mmol/L Potassium 4.3 (3.5-5.1) mmol/L Chloride 96 L (98-107) mmol/L Carbon Dioxide 36 H (22-30) mmol/L Anion Gap 9.4 (5-15) MEQ/L BUN 15 (9-20) mg/dL Creatinine 0.63 L (0.66-1.25) mg/dL Estimated GFR > 60.0 ML/MIN Glucose 228 H (74-106) mg/dL POC Glucometer (74 to 106) mg/dL Hemoglobin A1c (4.5-6.0) % Calcium 9.0 (8.4-10.2) mg/dL Total Bilirubin 0.10 L (0.2-1.3) mg/dL AST 17 (17-59) U/L ALT 20 (0-50) U/L Alkaline Phosphatase 51 (38-126) U/L Troponin I < 0.012 (0.000-0.034) ng/mL Serum Total Protein 6.9 (6.3-8.2) g/dL Albumin 3.6 (3.5-5.0) g/dL SARS-CoV-2 (PCR) (NEGATIVE) Slides for Path Review YES 10/06/20 10/06/20 Range/Units 07:09 12:13 WBC (4.0-10.5) K/mm3 RBC (4.1-5.6) M/mm3 Hgb (12.5-18.0) gm/dl Hct (42-50) % MCV (78-100) fl MCH (26-32) pg MCHC (32-36) g/dl RDW (11.5-14.0) % Plt Count (150-450) K/mm3 MPV (7.5-11.0) fl Gran % (36.0-66.0) % Eos # (Auto) (0-0.5) Absolute Lymphs (auto) (1.0-4.6) Absolute Monos (auto) (0.0-1.3) Lymphocytes % (24.0-44.0) % Monocytes % (0.0-12.0) % Eosinophils % (0.00-5.0) % Basophils % (0.0-0.4) % Absolute Granulocytes (1.4-6.9) Basophils # (0-0.4) Sodium (137-145) mmol/L Potassium (3.5-5.1) mmol/L Chloride (98-107) mmol/L Carbon Dioxide (22-30) mmol/L Anion Gap (5-15) MEQ/L BUN (9-20) mg/dL Creatinine (0.66-1.25) mg/dL Estimated GFR ML/MIN Glucose (74-106) mg/dL POC Glucometer 206 H 264 H (74 to 106) mg/dL Hemoglobin A1c (4.5-6.0) % Calcium (8.4-10.2) mg/dL Total Bilirubin (0.2-1.3) mg/dL AST (17-59) U/L ALT (0-50) U/L Alkaline Phosphatase (38-126) U/L Troponin I (0.000-0.034) ng/mL Serum Total Protein (6.3-8.2) g/dL Albumin (3.5-5.0) g/dL SARS-CoV-2 (PCR) (NEGATIVE) Slides for Path Review Micro Results-Entire Visit: Accuchecks Date 10/06/20 Time 12:28 - Radiology Exams Ordered Rad Exams-Entire Visit: Radiology Procedures Category Date Time Status CHEST 1 VIEW (PORTABLE) Stat Exams 10/05/20 10:12 Completed Ultrasound Bladder [BLADDER] [US] Routine Exams 10/06/20 09:58 Completed - Procedures and Test Procedures and Tests throughout Hospitalization: Therapy Orders & Screens 10/05/20 10:37 Respiratory Therapy Assessment DAILY Comment: 10/05/20 16:50 Oxygen Nasal Cannula 3 lpm Comment: 10/05/20 17:44 Respiratory Therapy Assessment DAILY Comment: Diagnosis: Left pneumonia/COPD 10/05/20 17:53 OT Screen per Nursing Assess ONCE Comment: Protocol Order Physician Instructions: Greater than 3 points order OT Admission Screening Reason For Exam: Triggered on Admission Diagnosis: Left pneumonia/COPD Open Wound/Cellutlitis/Pressure Ulcers: Yes Acute Fx/ORIF/Change in wt bearing status: No Acute CVA w/Hemiparesis/Hemiplegia: No Decreased Functional Mobility/Strength: Yes Sprain/Strain: No Acute Post-op Mobility Dysfunction: No Total Points: 6 PT Screen per Nursing Assess ONCE Comment: Protocol Order Physician Instructions: Greater than 3 points order PT Admission Screenin Reason For Exam: Triggered on Admission Diagnosis: Left pneumonia/COPD Open Wound/Cellutlitis/Pressure Ulcers: Yes Acute Fx/ORIF/Change in wt bearing status: No Acute CVA w/Hemiparesis/Hemiplegia: No Decreased Functional Mobility/Strength: Yes Sprain/Strain: No Acute Post-op Mobility Dysfunction: No Total Points: 6 RT Screen per Nursing Assess ONCE Comment: Protocol Order Physician Instructions: Greater than 3 points order RT Admission Screen Reason For Exam: Triggered on Admission Diagnosis: Left pneumonia/COPD Diagnosis: Left pneumonia/COPD Pneumonia: Yes Home O2: Yes Asthma: No CHF: Yes Home CPAP/BIPAP: No Home Nebs/MDI: Yes Total Points: 16 10/05/20 18:51 Incentive Spirometry TID Comment: Diagnosis: Left pneumonia/COPD - Discharge Discharge Date: 10/06/20 Disposition: Home, Self-Care Condition: Stable Prescriptions: New Levofloxacin [Levaquin] 250 mg PO DAILY #7 tablet Tamsulosin HCl 0.4 mg [Flomax 0.4 MG] 0 mg PO HS 30 Days #30 cap Continue Fluticasone/Salmeterol 115/21* [Advair Hfa 115/21 Mcg Inhaler] 21 mcg PO BID Pravastatin Sodium 40 mg PO HS Carvedilol 6.25 mg [Coreg 6.25 MG] 6.25 mg PO BID Fentanyl 75Mcg Patch [Duragesic 75 MCG Patch] 75 mcg .ROUTE Q72H Insulin Detemir [Levemir Flexpen] 35 units SQ BID Ferrous Fumarate 324 mg PO DAILY Bumetanide 1 mg [Bumex 1 mg] 1 mg PO QAM Prednisone 10 mg [Deltasone 10 mg] 10 mg PO DAILY Gabapentin 400 mg [Neurontin 400 MG] 800 mg PO TID Lisinopril 10 mg [Zestril 10 MG] 5 mg PO UD Buspirone HCl [Buspar] 10 mg PO BID Duloxetine HCl [Cymbalta] 60 mg PO BID Docusate Sodium 100 mg [Colace 100 MG] 100 mg PO DAILY Instructions: Levofloxacin (Systemic), Pneumonia, Adult (DC), Tamsulosin Additional Instructions: If unable to void returned to the ER. REFERRAL WAS FAXED TO [facility]- THEY WILL BE CONTACTING YOU TO SET UP A VISIT. THEIR PHONE NUMBER IS [phone] Follow up with: SHOLA العراقي [COURTESY STAFF] - Call for Appointment (DR. العراقي'S OFFICE IS CLOSED TODAY. PLEASE CALL OFFICE TOMORROW TO MAKE A FOLLOW UP APPOINTMENT SOON POSSIBLE.) SYLWIA FRASRE MD [Primary Care Provider] - 1 Week (DR. FRASER'S OFFICE IS CLOSED TODAY. CALL TOMORROW TO MAKE A 1 WEEK FOLLOW UP.) Forms: Discharge Instructions
[2020-10-06] MEDS ORDERED: Flomax 0.4 MG PO SCH (22:00)
== END 2020-10-06 14:21 | disposition home or self-care (01) ==
LOC: ED 09:44 → MED SURG 16:45
PROVIDERS: ADMIT General Practice; ATTEND General Practice
DX: N40.1 Benign prostatic hyperplasia with lower urinary tract symptoms (principal); J44.1 Chronic obstructive pulmonary disease with (acute) exacerbation; R33.8 Other retention of urine; E11.9 Type 2 diabetes mellitus without complications; Z85.118 Personal history of other malignant neoplasm of bronchus and lung; Z79.899 Other long term (current) drug therapy; Z20.828 Contact with and (suspected) exposure to other viral communicable diseases
CPT/HCPCS: 36000; 36415; 71045; 76705; 80053; 81001; 82805; 82947; 83036; 83880; 84484; 85025; 87400; 87651; 93005; 93041; 93268; 94640; 94760; 96365; 96374; 96375; 99285; G0378; U0003; J1642; J1815; J1956; J2270; J2920; J2930; A9270-GY

== ENCOUNTER 2020-11-02 17:16 | Inpatient (IN) | payer MEDICARE ==
[2020-11-02] MEDS ORDERED: Lasix 40 MG/4 ML IV ONE (17:41)
[2020-11-02] MEDS ORDERED: solu-MEDROL 125 MG, Sterile H2O 10 ml 2 ML IV ONE ×2 (17:41)
[2020-11-02] MEDS ORDERED: DUONEB 0.5-3 MG/3 ml Neb IH ONE ×2 (17:41→17:55)
[2020-11-02] MEDS ORDERED: solu-MEDROL ONE (18:15)
[2020-11-02] MEDS ORDERED: Sterile H2O 10 ml IJ ONE (18:15)
[2020-11-02] MEDS ORDERED: Lasix 40 MG/4 ML ONE (18:15)
[2020-11-02 18:40] LABS: Absolute Neutrophil Ct (ANC) 6.08 (1.4-6.9); BASOPHIL % 0.4 % (0.0-0.4); Basophil (Absolute #) 0.03 (0-0.4); Eosinophil % 1.1 % (0.00-5.0); Eosinophil (Absolute #) 0.08 (0-0.5); Hematocrit 27.7 % (42-50); Lymphocyte (Absolute #) 0.62 (1.0-4.6); Lymphocytes % 8.3 % (24.0-44.0); Mean Cell Volume 99.3 fl (78-100); Mean Corpuscular Hemoglobin 28.7 pg (26-32); Mean Corpuscular Hgb Concent. 28.9 g/dl (32-36); Mean Platelet Volume 9.6 fl (7.5-11.0); Monocytes % 9.3 % (0.0-12.0); Neutrophil % 80.9 % (36.0-66.0); Platelet Count 214 K/mm3 (150-450); Red Blood Count 2.79 M/mm3 (4.1-5.6); Red Cell Distribution Width 14.5 % (11.5-14.0); White Blood Count 7.5 K/mm3 (4.0-10.5)
[2020-11-02 18:48] LABS: MAGNESIUM 1.5 mg/dL (1.6-2.3)
[2020-11-02] MEDS ORDERED: LEVOFLOXACIN 750MG/150ML D5W 750 MG/150 ML BAG IV STA (18:52)
[2020-11-02] MEDS ORDERED: AZACTAM 1 GM*** 2 GM in Sodium Chloride 0.9% 100 ML BAG 100 ML IV ONE (18:53)
[2020-11-02] MEDS ORDERED: LEVOFLOXACIN 750MG/150ML D5W 750 MG/150 ML BAG IV ONE (19:20)
[2020-11-02 19:29] LABS: ALBUMIN 3.6 g/dL (3.5-5.0); ALKALINE PHOSPHATASE 62 U/L (38-126); ANION GAP 13.1 MEQ/L (5-15); BILIRUBIN,TOTAL < 0.10 mg/dL (0.2-1.3); BLOOD UREA NITROGEN 25 mg/dL (9-20); CHLORIDE 96 mmol/L (98-107); Calcium 8.8 mg/dL (8.4-10.2); Carbon Dioxide 32 mmol/L (22-30); Creatinine 1 0.97 mg/dL (0.66-1.25); EST GLOMERULAR FILTRATION RATE > 60.0 ML/MIN; Glucose 243 mg/dL (74-106); Potassium 4.3 mmol/L (3.5-5.1); SGOT/AST 18 U/L (17-59); SGPT/ALT 17 U/L (0-50); SODIUM 137 mmol/L (137-145)
--- NOTE | 2020-11-02 19:41 | ERPHSYRPT ---
- History of Present Illness Time Seen by Provider: 11/02/20 17:21 Source: patient, EMS Exam Limitations: no limitations Patient Subjective Stated Complaint: Pt states "I have been short of breath for a bit now and I called Dr. Pond and he told me to come here. I think I have pneumonia." Triage Nursing Assessment: Pt presented alert and oriented X 3, skin pwd Pt able to speak in clear full sentences pt tachypneic, has intermittant productive cough. PT has audible rhales. Physician History: 75 years old male with history of hypertension, hyperlipidemia, diabetes mellitus, chronic respiratory failure secondary to COPD/CHF on 3 L oxygen, non- small cell lung cancer status post lobectomy long time ago chemoradiation presented in the ER with increasing shortness of breath for the last few days. Patient reports having multiple pneumonias in the past. Patient report feeling shortness of breath even with 2 L oxygen and minimal activity makes it worse. Also report cough productive of clear to yellow sputum moderate amount. Denies any fever or chills but have chest tightness and pressure. Timing/Duration: day(s), constant, gradual onset, worse Activities at Onset: activity Severity of Dyspnea-Max: moderate Severity of Dyspnea-Current: moderate Possible Cause: occasional episodes Modifying Factors: Improves With: oxygen. Worsens With: coughing, exertion, lying down Associated Symptoms: cough, chest pain/discomfort, wheezing, productive cough, tightness Allergies/Adverse Reactions: Penicillins Allergy (Unknown, Verified 11/11/16 07:20) Home Medications: Bumetanide 1 mg [Bumex 1 mg] 1 mg PO QAM 03/03/15 [History] Carvedilol 6.25 mg [Coreg 6.25 MG] 6.25 mg PO BID 03/03/15 [History] Fentanyl 75Mcg Patch [Duragesic 75 MCG Patch] 75 mcg .ROUTE Q72H 03/03/15 [History] Ferrous Fumarate 324 mg PO DAILY 03/03/15 [History] Fluticasone/Salmeterol 115/21* [Advair Hfa 115/21 Mcg Inhaler] 21 mcg PO BID 03/03/15 [History] Gabapentin 400 mg [Neurontin 400 MG] 800 mg PO TID 03/03/15 [History] Insulin Detemir [Levemir Flexpen] 35 units SQ BID 03/03/15 [History] Lisinopril 10 mg [Zestril 10 MG] 5 mg PO UD 03/03/15 [History] Pravastatin Sodium 40 mg PO HS 03/03/15 [History] Prednisone 10 mg [Deltasone 10 mg] 10 mg PO DAILY 03/03/15 [History] Buspirone HCl [Buspar] 10 mg PO BID 11/03/16 [History] Duloxetine HCl [Cymbalta] 60 mg PO BID 11/03/16 [History] Docusate Sodium 100 mg [Colace 100 MG] 100 mg PO DAILY 04/05/18 [History] Hx Tetanus, Diphtheria Vaccination/Date Given: Yes Hx Influenza Vaccination/Date Given: Yes Hx Pneumococcal Vaccination/Date Given: Yes Immunizations Up to Date: Yes Travel Risk - International Travel Have you traveled outside of the country in past 3 weeks: No - Coronavirus Screening Are you exhibiting any of the following symptoms?: No Close contact with a COVID-19 positive Pt in past 14-21 Days: No - Vaccine Status Have you recieved a Covid-19 vaccination: Yes [employer]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: [employer] - Vaccination Dates Date of 2cond Vaccination (if applicable): 07/2020 - Review of Systems Constitutional: Fatigue, Weakness Eyes: No Symptoms Ears, Nose, & Throat: No Symptoms Respiratory: Cough, Dyspnea, Dyspnea on Exertion ([place]), Wheezing Cardiac: Edema, Orthopnea Abdominal/Gastrointestinal: No Symptoms Genitourinary Symptoms: No Symptoms Musculoskeletal: No Symptoms Neurological: No Symptoms Psychological: No Symptoms Endocrine: No Symptoms Hematologic/Lymphatic: No Symptoms Immunological/Allergic: No Symptoms - Past Medical History Pertinent Past Medical History: Yes Neurological History: Peripheral Neuropathy, TIA ENT History: No Pertinent History Cardiac History: Congestive Heart Failure Respiratory History: CHF, COPD, Emphysema, Lung Cancer Endocrine Medical History: Diabetes Type II Musculoskeletal History: Arthritis, Degenerative Disk Disease GI Medical History: Esophageal Disorder, GERD, Hernia History: No Pertinent History Psycho-Social History: Anxiety, Depression Male Reproductive Disorders: No Pertinent History Other Medical History: . - Past Surgical History Past Surgical History: Yes Neuro Surgical History: No Pertinent History Cardiac: Cardiac Stent Respiratory: Lobectomy Gastrointestinal: Cholecystectomy Genitourinary: No Pertinent History Musculoskeletal: No Pertinent History Male Surgical History: No Pertinent History Other Surgical History: hx of multiple i & D to buttocks - Social History Smoking Status: Former smoker How long have you smoked: 45 YEARS Exposure to second hand smoke: No Drug Use: none Patient Lives Alone: No Significant Family History: heart disease - Nursing Vital Signs Nursing Vital Signs: Initial Vital Signs Temperature 97.6 F 11/02/20 17:18 Pulse Rate 116 H 11/02/20 17:18 Respiratory Rate 24 11/02/20 17:18 Blood Pressure 110/76 11/02/20 17:18 O2 Sat by Pulse Oximetry 99 11/02/20 17:18 Pain Scale Pain Intensity 5 - Physical Exam General Appearance: no apparent distress, alert Eye Exam: PERRL/EOMI Ears, Nose, Throat Exam: hearing grossly normal, pharyngeal erythema Neck Exam: normal inspection, non-tender, full range of motion Respiratory Exam: diminished breath sounds, accessory muscle use, crackles/rales, rhonchi, wheezing Cardiovascular/Chest Exam: normal heart sounds, edema, tachycardia Abdominal/Gastrointestinal Exam: soft, normal bowel sounds Extremity Exam: normal range of motion, normal capillary refill Neurologic Exam: alert, oriented x 3, cooperative Skin Exam: normal color SpO2 Interpretation: normal SpO2: 97 O2 Delivery: Nasal Cannula Ordered Tests: Active Orders 24 hr Category Date Time Status Bedrest ROUTINE Activity 11/02/20 23:00 Active Up With Assistance ROUTINE Activity 11/02/20 23:00 Active Admit as Inpatient ROUTINE Care 11/02/20 23:00 Active Airplane Charter Clerk STAT Care 11/02/20 17:42 Completed Code Status Order ROUTINE Care 11/02/20 23:00 Active EKG-ER Only STAT Care 11/02/20 17:41 Completed Fall Protocol ROUTINE Care 11/02/20 23:00 Active IV Care Q6H Care 11/02/20 23:00 Active IV Insertion STAT Care 11/02/20 17:41 Completed Neuro Checks Q4H Care 11/02/20 23:00 Active Oxygen-ED Only Nasal Cannula 3 lpm Care 11/02/20 17:41 Completed POCT Glucose Check ACHS Care 11/02/20 23:00 Active Tracey Rabago ROUTINE Care 11/02/20 23:00 Active Weight,Daily 0600 Care 11/02/20 23:00 Active Consistent Carbohydrate Diet 1800 Calorie Diet 11/02/20 Breakfast Active CHEST 1 VIEW (PORTABLE) Stat Exams 11/02/20 17:42 Taken CHEST WITH CONTRAST [CT] Stat Exams 11/02/20 19:08 Taken BLOOD CULTURE Stat Lab 11/02/20 18:20 Received CBC W DIFF AM.LAB Lab 11/03/20 04:00 Ordered CBC W DIFF Stat Lab 11/02/20 17:41 Completed CMP AM.LAB Lab 11/03/20 04:00 Ordered CMP Stat Lab 11/02/20 17:45 Completed Lactic Acid Stat Lab 11/02/20 18:00 Completed MAGNESIUM Stat Lab 11/02/20 17:41 Completed NT PRO BNP Stat Lab 11/02/20 17:41 Completed TROPONIN Q3H Lab 11/02/20 17:45 Completed TROPONIN Q3H Lab 11/02/20 20:44 Completed TROPONIN Q3H Lab 11/02/20 23:45 Ordered TROPONIN Q3H Lab 11/03/20 02:45 Ordered TROPONIN Q3H Lab 11/03/20 05:45 Ordered UA W/RFX UR CULTURE Stat Lab 11/02/20 18:59 Completed Oxygen Nasal Cannula 3 lpm RT 11/02/20 23:00 Active Respiratory Therapy Assessment DAILY RT 11/02/20 18:00 Completed Transfer Order Routine Transfer 11/02/20 Completed Medication Summary Generic Name Dose Route Start Last Admin Trade Name Freq PRN Reason Stop Dose Admin Acetaminophen 650 mg 11/02/20 23:00 Tylenol 325 Mg PO 12/02/20 22:59 Q4H PRN PRN PAIN AND/OR FEVER Albuterol/Ipratropium 3 ml 11/03/20 07:00 Duoneb 0.5-3 Mg/3 Ml Neb IH 12/03/20 06:59 QIDRT REZA Dexamethasone Sodium Phosphate 6 mg 11/03/20 10:00 Decadron 10mg Inj. IV 12/03/20 09:59 DAILY REZA Enoxaparin Sodium 40 mg 11/03/20 10:00 Enoxaparin Sodium SQ 12/03/20 09:59 DAILY REZA Famotidine 20 mg 11/03/20 10:00 Pepcid 20 Mg Vial IV 12/03/20 09:59 Q12HT REZA Remdesivir 200 mg/ Sodium 250 mls @ 125 mls/hr 11/02/20 22:34 Chloride IV 11/03/20 00:33 ONCE ONE Levofloxacin/Dextrose 750 mg in 150 mls @ 100 mls/hr 11/03/20 10:00 Levofloxacin 750mg/150ml D5w IV 12/03/20 09:59 Q24H10 REZA Aztreonam 2 gm/ Sodium 100 mls @ 200 mls/hr 11/03/20 06:00 Chloride IV 11/06/20 05:59 Q8HT REZA Remdesivir 100 mg/ Sodium 100 mls @ 100 mls/hr 11/03/20 22:36 Chloride IV 11/06/20 23:35 Q24H REZA Insulin Human Lispro 0 unit 11/02/20 23:00 Humalog SQ 12/02/20 22:59 UD PRN HYPERGLYCEMIA Morphine Sulfate 2 mg 11/02/20 23:00 Morphine Sulfate 2 Mg Inj IV 11/07/20 22:59 Q4H PRN PRN PAIN Ondansetron HCl 4 mg 11/02/20 23:00 Zofran 4 Mg/2 Ml Vial IV 12/02/20 22:59 Q6H PRN PRN NAUSEA/VOMITING Discontinued Medications Generic Name Dose Route Start Last Admin Trade Name Freq PRN Reason Stop Dose Admin Albuterol/Ipratropium 3 ml 11/02/20 17:41 11/02/20 17:59 Duoneb 0.5-3 Mg/3 Ml Neb IH 11/02/20 17:42 3 ml STAT ONE Administration Albuterol/Ipratropium Confirm 11/02/20 17:55 Duoneb 0.5-3 Mg/3 Ml Neb Administered 11/02/20 17:56 Dose 3 ml IH .STK-MED ONE Methylprednisolone Sodium 0 mg 11/02/20 17:41 11/02/20 18:16 Succinate 125 mg/ Sterile IV 11/02/20 17:42 125 mg Water 2 ml STAT ONE Administration Furosemide 40 mg 11/02/20 17:41 11/02/20 18:17 Lasix 40 Mg/4 Ml IV 11/02/20 17:42 40 mg STAT ONE Administration Furosemide Confirm 11/02/20 18:15 Lasix 40 Mg/4 Ml Administered 11/02/20 18:16 Dose 40 mg .ROUTE .STK-MED ONE Levofloxacin/Dextrose 750 mg in 150 mls @ 100 mls/hr 11/02/20 18:52 11/02/20 21:09 Levofloxacin 750mg/150ml D5w IV 11/02/20 20:21 Infused STAT STA Infusion Aztreonam 2 gm/ Sodium 100 mls @ 200 mls/hr 11/02/20 18:53 11/02/20 19:41 Chloride IV 11/02/20 19:22 200 mls/hr STAT ONE Administration Levofloxacin/Dextrose Confirm 11/02/20 19:20 Levofloxacin 750mg/150ml D5w Administered 11/02/20 19:21 Dose 750 mg in 150 mls @ ud IV .STK-MED ONE Magnesium Sulfate/Dextrose 100 mls @ 100 mls/hr 11/02/20 19:45 11/02/20 20:43 Magnesium 1 Gm / 100 Ml D5w IV 11/02/20 21:44 100 mls/hr Q1H REZA Administration Magnesium Sulfate/Dextrose Confirm 11/02/20 20:41 Magnesium 1 Gm / 100 Ml D5w Administered 11/02/20 20:42 Dose 200 mls @ ud IV .STK-MED ONE Methylprednisolone Sodium Succinate Confirm 11/02/20 18:15 Solu-Medrol Administered 11/02/20 18:16 Dose 125 mg .ROUTE .STK-MED ONE Sterile Water Confirm 11/02/20 18:15 Sterile H2o 10 Ml Administered 11/02/20 18:16 Dose 10 ml IJ .STK-MED ONE Lab/Rad Data: Laboratory Result Diagrams 11/02/20 17:41 11/02/20 17:45 Laboratory Results 11/02/20 11/02/20 11/02/20 Range/Units 20:46 20:44 18:59 WBC (4.0-10.5) K/mm3 RBC (4.1-5.6) M/mm3 Hgb (12.5-18.0) gm/dl Hct (42-50) % MCV (78-100) fl MCH (26-32) pg MCHC (32-36) g/dl RDW (11.5-14.0) % Plt Count (150-450) K/mm3 MPV (7.5-11.0) fl Gran % (36.0-66.0) % Eos # (Auto) (0-0.5) Absolute Lymphs (auto) (1.0-4.6) Absolute Monos (auto) (0.0-1.3) Lymphocytes % (24.0-44.0) % Monocytes % (0.0-12.0) % Eosinophils % (0.00-5.0) % Basophils % (0.0-0.4) % Absolute Granulocytes (1.4-6.9) Basophils # (0-0.4) Sodium (137-145) mmol/L Potassium (3.5-5.1) mmol/L Chloride (98-107) mmol/L Carbon Dioxide (22-30) mmol/L Anion Gap (5-15) MEQ/L BUN (9-20) mg/dL Creatinine (0.66-1.25) mg/dL Estimated GFR ML/MIN Glucose (74-106) mg/dL Lactic Acid (0.4-2.0) Calcium (8.4-10.2) mg/dL Magnesium (1.6-2.3) mg/dL Total Bilirubin (0.2-1.3) mg/dL AST (17-59) U/L ALT (0-50) U/L Alkaline Phosphatase (38-126) U/L Troponin I < 0.012 (0.000-0.034) ng/mL NT-Pro-B Natriuret Pep (0-900) pg/mL Serum Total Protein (6.3-8.2) g/dL Albumin (3.5-5.0) g/dL Urine Color YELLOW (YELLOW) Urine Appearance CLEAR (CLEAR) Urine pH 5.0 (5-6) Ur Specific [place] 1.014 (1.005-1.025) Urine Protein NEGATIVE (Negative) Urine Ketones NEGATIVE (NEGATIVE) Urine Blood NEGATIVE (0-5) [place]/ul Urine Nitrite NEGATIVE (NEGATIVE) Urine Bilirubin NEGATIVE (NEGATIVE) Urine Urobilinogen NEGATIVE (0-1) mg/dL Ur Leukocyte Esterase NEGATIVE (NEGATIVE) Urine WBC (Auto) NONE (0-5) /HPF Urine RBC (Auto) 6-10 (0-2) /HPF U Epithel Cells (Auto) NONE (FEW) /HPF Urine Bacteria (Auto) NONE (NEGATIVE) /HPF Urine Mucus (Auto) SLIGHT (NEGATIVE) /HPF Urine Culture Reflexed NO (NO) Urine Glucose 50 (NEGATIVE) mg/dL SARS-CoV-2 (PCR) POSITIVE A (NEGATIVE) Slides for Path Review 11/02/20 11/02/20 11/02/20 Range/Units 18:00 17:45 17:45 WBC (4.0-10.5) K/mm3 RBC (4.1-5.6) M/mm3 Hgb (12.5-18.0) gm/dl Hct (42-50) % MCV (78-100) fl MCH (26-32) pg MCHC (32-36) g/dl RDW (11.5-14.0) % Plt Count (150-450) K/mm3 MPV (7.5-11.0) fl Gran % (36.0-66.0) % Eos # (Auto) (0-0.5) Absolute Lymphs (auto) (1.0-4.6) Absolute Monos (auto) (0.0-1.3) Lymphocytes % (24.0-44.0) % Monocytes % (0.0-12.0) % Eosinophils % (0.00-5.0) % Basophils % (0.0-0.4) % Absolute Granulocytes (1.4-6.9) Basophils # (0-0.4) Sodium 137 (137-145) mmol/L Potassium 4.3 (3.5-5.1) mmol/L Chloride 96 L (98-107) mmol/L Carbon Dioxide 32 H (22-30) mmol/L Anion Gap 13.1 (5-15) MEQ/L BUN 25 H (9-20) mg/dL Creatinine 0.97 (0.66-1.25) mg/dL Estimated GFR > 60.0 ML/MIN Glucose 243 H (74-106) mg/dL Lactic Acid 1.1 (0.4-2.0) Calcium 8.8 (8.4-10.2) mg/dL Magnesium (1.6-2.3) mg/dL Total Bilirubin < 0.10 L (0.2-1.3) mg/dL AST 18 (17-59) U/L ALT 17 (0-50) U/L Alkaline Phosphatase 62 (38-126) U/L Troponin I < 0.012 (0.000-0.034) ng/mL NT-Pro-B Natriuret Pep (0-900) pg/mL Serum Total Protein 7.0 (6.3-8.2) g/dL Albumin 3.6 (3.5-5.0) g/dL Urine Color (YELLOW) Urine Appearance (CLEAR) Urine pH (5-6) Ur Specific [place] (1.005-1.025) Urine Protein (Negative) Urine Ketones (NEGATIVE) Urine Blood (0-5) [place]/ul Urine Nitrite (NEGATIVE) Urine Bilirubin (NEGATIVE) Urine Urobilinogen (0-1) mg/dL Ur Leukocyte Esterase (NEGATIVE) Urine WBC (Auto) (0-5) /HPF Urine RBC (Auto) (0-2) /HPF U Epithel Cells (Auto) (FEW) /HPF Urine Bacteria (Auto) (NEGATIVE) /HPF Urine Mucus (Auto) (NEGATIVE) /HPF Urine Culture Reflexed (NO) Urine Glucose (NEGATIVE) mg/dL SARS-CoV-2 (PCR) (NEGATIVE) Slides for Path Review 11/02/20 11/02/20 Range/Units 17:41 17:41 WBC 7.5 (4.0-10.5) K/mm3 RBC 2.79 L (4.1-5.6) M/mm3 Hgb 8.0 L (12.5-18.0) gm/dl Hct 27.7 L (42-50) % MCV 99.3 (78-100) fl MCH 28.7 (26-32) pg MCHC 28.9 L (32-36) g/dl RDW 14.5 H (11.5-14.0) % Plt Count 214 (150-450) K/mm3 MPV 9.6 (7.5-11.0) fl Gran % 80.9 H (36.0-66.0) % Eos # (Auto) 0.08 (0-0.5) Absolute Lymphs (auto) 0.62 L (1.0-4.6) Absolute Monos (auto) 0.70 (0.0-1.3) Lymphocytes % 8.3 L (24.0-44.0) % Monocytes % 9.3 (0.0-12.0) % Eosinophils % 1.1 (0.00-5.0) % Basophils % 0.4 (0.0-0.4) % Absolute Granulocytes 6.08 (1.4-6.9) Basophils # 0.03 (0-0.4) Sodium (137-145) mmol/L Potassium (3.5-5.1) mmol/L Chloride (98-107) mmol/L Carbon Dioxide (22-30) mmol/L Anion Gap (5-15) MEQ/L BUN (9-20) mg/dL Creatinine (0.66-1.25) mg/dL Estimated GFR ML/MIN Glucose (74-106) mg/dL Lactic Acid (0.4-2.0) Calcium (8.4-10.2) mg/dL Magnesium 1.5 L (1.6-2.3) mg/dL Total Bilirubin (0.2-1.3) mg/dL AST (17-59) U/L ALT (0-50) U/L Alkaline Phosphatase (38-126) U/L Troponin I (0.000-0.034) ng/mL NT-Pro-B Natriuret Pep 279 (0-900) pg/mL Serum Total Protein (6.3-8.2) g/dL Albumin (3.5-5.0) g/dL Urine Color (YELLOW) Urine Appearance (CLEAR) Urine pH (5-6) Ur Specific [place] (1.005-1.025) Urine Protein (Negative) Urine Ketones (NEGATIVE) Urine Blood (0-5) [place]/ul Urine Nitrite (NEGATIVE) Urine Bilirubin (NEGATIVE) Urine Urobilinogen (0-1) mg/dL Ur Leukocyte Esterase (NEGATIVE) Urine WBC (Auto) (0-5) /HPF Urine RBC (Auto) (0-2) /HPF U Epithel Cells (Auto) (FEW) /HPF Urine Bacteria (Auto) (NEGATIVE) /HPF Urine Mucus (Auto) (NEGATIVE) /HPF Urine Culture Reflexed (NO) Urine Glucose (NEGATIVE) mg/dL SARS-CoV-2 (PCR) (NEGATIVE) Slides for Path Review YES - Progress Progress: re-examined Air Movement: fair Progress Note: 11/02/20 21:03 75 years old is evaluated for worsening shortness of breath. Patient has coarse crackles, given small dose of Lasix along with Solu-Medrol and a breathing treatment. Chest x-ray showed bilateral pneumonia with multi lobar on the right with right lobectomy. Has normal white count, H&H stable around baseline 8. Has elevated blood glucose and mildly low magnesium for which he is getting replacement. I have started him on broad-spectrum antibiotic Azactam and Lev aquin. Discussed with and patient is admitted. I have obtained CT chest PE protocol which showed right-sided new consolidation and there is a soft tissue obstruction of remaining right-sided lobar bronchi and consolidation likely represent postobstructive atelectasis versus pneumonia. Patient also has a moderate sized partially localized hydropneumothorax. I have called who recommended discussion with Dr. Leong cardiothoracic surgery who did lobectomy long time ago about possible need of chest tube placement and transfer to [facility]. I have not placed the chest tube because hydropneumothorax is loculated and probably there for quite some time. Also patient does not want to have chest intubation. 11/02/20 22:27 I have discussed with Dr. Leong, reviewed history, work-up, he knows patient very well and do not think patient needs chest tube placement with loculated hydropneumothorax. He has recently evaluated patient per him and does not have any further plan of intervention because of his advanced stage disease and is not a candidate for any intervention currently. If patient is not getting any intervention at [facility], I do not think he needs to be transferred. I have discussed with Dr. Davila, reviewed history, work-up and current management, recommended Decadron/remdesivir, continue with antibiotics and prophylactic Lovenox. Patient is admitted at [facility] Covid unit. Plan discussed with patient who understand and agrees with it. Blood Culture(s) Obtained: Yes Antibiotics given: Yes Discussed with : Lala, Other (, ) - Departure Departure Disposition: In-patient Admission Clinical Impression: Hydropneumothorax, COVID-19, Hypomagnesemia Pneumonia Qualifiers: Pneumonia type: due to unspecified organism Laterality: bilateral Lung location: unspecified part of lung Qualified Code(s): J18.9 - Pneumonia, unspecified organism Condition: Fair Critical Care Time: Yes Critical Care Time(excluding separately billable procedures): Critical 30-74 mins
[2020-11-02 20:07] LABS: Appearance CLEAR (CLEAR); Bilirubin NEGATIVE (NEGATIVE); Blood NEGATIVE Ery/ul (0-5); Glucose 50 mg/dL (NEGATIVE); Ketones NEGATIVE (NEGATIVE); Leukocyte Esterase NEGATIVE (NEGATIVE); Mucus SLIGHT /HPF (NEGATIVE); Nitrite NEGATIVE (NEGATIVE); Protein,Urine Dip NEGATIVE (Negative); Specific Gravity 1.014 (1.005-1.025); Urobilinogen NEGATIVE mg/dL (0-1)
[2020-11-02 20:11] LABS: Slide Review 1 YES
[2020-11-02] MEDS ORDERED: Magnesium 1 Gm / 100 Ml D5W*** 200 ML IV ONE (20:41)
[2020-11-02] MEDS: Magnesium 1 Gm / 100 Ml D5W*** 100 ML IV SCH ×2 (20:42→20:43)
[2020-11-02] MEDS ORDERED: REMDESIVIR 200 MG in Sodium Chloride 0.9% 250 ML 250 ML IV ONE (22:34)
[2020-11-02] MEDS ORDERED: TYLENOL 325 MG PO PRN (23:00)
[2020-11-02] MEDS ORDERED: Zofran 4 MG/2 ML VIAL IV PRN (23:00)
[2020-11-03] MEDS: MORPHINE SULFATE 2 MG INJ IV PRN ×3 (00:20→21:06)
[2020-11-03] MEDS: Cymbalta 30 MG Capsule PO SCH ×3 (00:24→21:04)
[2020-11-03] MEDS: Coreg 6.25 MG PO SCH ×3 (00:25→21:05)
[2020-11-03] MEDS: ZOCOR 20MG PO SCH ×2 (00:25→21:05)
[2020-11-03] MEDS: BUSPAR 5 MG PO SCH ×3 (00:28→21:20)
[2020-11-03] MEDS: Flomax 0.4 MG PO SCH ×2 (00:28→21:19)
[2020-11-03] MEDS: Neurontin 400 MG PO SCH ×4 (00:28→21:19)
[2020-11-03] MEDS ORDERED: VENTOLIN COMMON CANISTER IH PRN (00:51)
[2020-11-03 01:18] LABS: Appearance CLEAR (CLEAR); Bilirubin NEGATIVE (NEGATIVE); Blood NEGATIVE Ery/ul (0-5); Glucose >=500 mg/dL (NEGATIVE); Ketones NEGATIVE (NEGATIVE); Leukocyte Esterase NEGATIVE (NEGATIVE); Nitrite NEGATIVE (NEGATIVE); Protein,Urine Dip NEGATIVE (Negative); Specific Gravity 1.029 (1.005-1.025); Urobilinogen NEGATIVE mg/dL (0-1)
[2020-11-03] MEDS ORDERED: Sodium Chloride 0.9% 100 ML BAG 100 ML ONE (04:07)
[2020-11-03 04:19] LABS: Absolute Neutrophil Ct (ANC) 6.73 (1.4-6.9); BASOPHIL % 0.3 % (0.0-0.4); Basophil (Absolute #) 0.02 (0-0.4); Eosinophil (Absolute #) 0 (0-0.5); Hematocrit 25.4 % (42-50); Hemoglobin 7.4 gm/dl (12.5-18.0); Lymphocyte (Absolute #) 0.36 (1.0-4.6); Lymphocytes % 4.9 % (24.0-44.0); Mean Cell Volume 97.7 fl (78-100); Mean Corpuscular Hemoglobin 28.5 pg (26-32); Mean Corpuscular Hgb Concent. 29.1 g/dl (32-36); Mean Platelet Volume 9.5 fl (7.5-11.0); Monocyte (Absolute #) 0.19 (0.0-1.3); Monocytes % 2.6 % (0.0-12.0); Neutrophil % 92.2 % (36.0-66.0); Platelet Count 199 K/mm3 (150-450); Red Cell Distribution Width 14.4 % (11.5-14.0); White Blood Count 7.3 K/mm3 (4.0-10.5)
[2020-11-03 04:57] LABS: Slide Review 1 YES
[2020-11-03] MEDS: AZACTAM 1 GM*** 2 GM in Sodium Chloride 0.9% 100 ML BAG 100 ML IV SCH ×2 (05:06→19:27)
[2020-11-03] MEDS ORDERED: DUONEB 0.5-3 MG/3 ml Neb IH SCH (07:00)
[2020-11-03] MEDS: ADVAIR/WIXELLA 250-50 DISKUS 14 DOSE IH SCH ×2 (07:43→19:30)
[2020-11-03 08:20] LABS: ALBUMIN 3.4 g/dL (3.5-5.0); ALKALINE PHOSPHATASE 54 U/L (38-126); ANION GAP 13.3 MEQ/L (5-15); BILIRUBIN,TOTAL < 0.10 mg/dL (0.2-1.3); BLOOD UREA NITROGEN 25 mg/dL (9-20); CHLORIDE 94 mmol/L (98-107); Calcium 8.5 mg/dL (8.4-10.2); Carbon Dioxide 33 mmol/L (22-30); Creatinine 1 0.72 mg/dL (0.66-1.25); EST GLOMERULAR FILTRATION RATE > 60.0 ML/MIN; Glucose 336 mg/dL (74-106); Potassium 4.5 mmol/L (3.5-5.1); SGOT/AST 20 U/L (17-59); SGPT/ALT 16 U/L (0-50); SODIUM 135 mmol/L (137-145); Total Protein 6.6 g/dL (6.3-8.2)
--- NOTE | 2020-11-03 08:32 | HP ---
CHIEF COMPLAINT: Shortness of breath. HISTORY OF PRESENT ILLNESS: A 75 year-old white male who has increasing shortness of breath, cough and feeling weak. He has been wheezing more. He apparently has lung cancer, chronic effusion and had hydropneumothorax on one side according to the pulmonary surgeon they talked to at [facility] who had done his recent surgery. No more surgery and no more chest tubes indicated as the doctor advised them. He did get a COVID vaccine however I guess COVID test is positive here. He has had some severe back pain which is chronic. His physician, Dr. Villarreal, asked if Dr. Pond to have him come in because he had been short of breath for quite a while and he thought he was having pneumonia. He has been alert and orientated. O2 use is 3 liters at home. TRAVEL RISK: He has not traveled. CORONAVIRUS SCREENING: He has not been in contact with anybody with COVID. He has received the [employer] vaccine both of the vaccines were given to him with the last one in July. MEDICATIONS: Bumex 1 mg q.a.m., carvedilol 6.25 q.d., Fentanyl patch 75 mcg every three days, iron 325 q.d., Advair 1 puff q.d., Neurontin 100 t.i.d., Levemir 35 units b.i.d., Zestril 10 q.d., Pravastatin 40 q.d., prednisone 10 q.d., Buspar 10 q.d., Cymbalta 60 b.i.d., Colace 100 q.d. ALLERGIES: PENICILLIN. PAST MEDICAL HISTORY: His other problems are hypertension, hyperlipidemia, diabetes mellitus, chronic obstructive pulmonary disease, snf smoking. Peripheral neuropathy, history of transient ischemic attack, degenerative disc disease of the back, swallowing disorder somewhat, reflux, anxiety, depression. PAST SURGICAL HISTORY: Cardiac stent. Lobectomy. Cholecystectomy. Multiple I&D's of the buttocks. REVIEW OF SYSTEMS: CONSTITUTIONAL: He is tired and weak. CHEST: He is coughing more. He is more short of breath on exertion. He is wheezing more. CVS: The patient has history of heart failure. He has some edema. Short of breath when he lays down. He uses oxygen 2 liters all the time and recently 3 liters. : No frequent urination. MUSCULOSKELETAL: Weak legs. NEUROLOGICAL: No symptoms. PSYCHOLOGICAL: Some anxiety and depression. PHYSICAL EXAMINATION: VITAL SIGNS: Temperature 96F, pulse 100, respirations 20, blood pressure 108/76. O2 saturations 92% on 3 liters. Pain intensity is 5. HEENT: Seems to hear and see okay. CHEST: Few crackles bilateral, decreased breath sounds both sides, using accessory muscles. CVS: Normal heart sounds. ABDOMEN: No tenderness or masses. EXTREMITIES: Trace edema. The patient is able to move his arms and legs normally although he is quite weak. IMPRESSION: The patient may have a new COVID pneumonia. He has chronic hydropneumothorax from his lung cancer apparently. He has chronic obstructive pulmonary disease, coronary artery disease and chronic back pain. PLAN: Will continue his regular medications, add some Remdesivir and Decadron, anticoagulated him. I believe really that his problems with the COVID are slight and that his underlying chronic obstructive pulmonary disease and lung cancer is exacerbation factor that places him in the COVID unit.
--- NOTE | 2020-11-03 08:49 | XRAY ---
Indication: Tachypnea and productive cough. Lung rales. Multiple contiguous axial images obtained through the chest using 100 cc Isovue 370 contrast and PE protocol. Comparison: June 13, 2018. There is good opacification of the pulmonary arteries to include the lobar and segmental branches. No pulmonary embolus. Heart and mediastinal structures again slightly translated to the right with borderline cardiomegaly and right Port-A-Cath. Aorta remains mildly actress carotid without aneurysm/dissection. Stable tiny subcarinal calcified nodes and moderate size hiatal hernia with partial intrathoracic stomach. Lungs demonstrate grossly stable right hemithorax postsurgical changes with lung volume loss and pleural effusion/thickening. Distal right main bronchus now demonstrates soft tissue opacification with subsequent distal postobstructive atelectasis. New tiny right pneumothorax. Left lung demonstrates stable minimal peripheral fibrosis/scarring. Bony thorax again demonstrates remote T6 compression fracture with interval kyphoplasty. Also new remote-appearing T4/T5/T8 compression fractures with approximately 25% height loss. Elsewhere stable mild osteopenia, minimal degenerative changes throughout the spine, remote T6 compression fracture with interval kyphoplasty, and old bilateral rib fractures. Limited upper abdomen again demonstrates tiny hepatic/splenic calcified granulomas.. Impression: 1. Negative pulmonary embolus. 2. New tiny right pneumothorax. No clear etiology. 3. New soft tissue opacity distal right main bronchus with distal postobstructive atelectasis. 4. Stable right hemithorax postsurgical changes with pleural effusion/thickening, hiatal hernia with partial intrathoracic stomach, and old granulomatous disease. 5. Again chronic bony findings. Comment: Preliminary interpretation made by [facility] [place]. No critical discrepancy.
--- NOTE | 2020-11-03 08:51 | XRAY ---
Indication: Pneumonia. Right lobectomy. Comparison: October 05, 2020. Portable chest again demonstrates right lung volume loss with pleural effusion/thickening presumed postsurgical. Left lung clear. Heart remains enlarged again with right Port-A-Cath. See CT chest study of the same day.
[2020-11-03] MEDS: HUMALOG SQ PRN ×2 (09:05→12:34)
[2020-11-03] MEDS ORDERED: MEDICATION INTERVENTION PO SCH (09:15)
[2020-11-03] MEDS: Pepcid 20 MG PO SCH ×2 (09:56→21:05)
[2020-11-03] MEDS: FEOSOL 325 MG PO SCH (09:56)
[2020-11-03] MEDS: Zestril 5 MG PO SCH (09:57)
[2020-11-03] MEDS: DECADRON 10MG INJ. IV SCH (09:58)
[2020-11-03] MEDS ORDERED: INSULIN DETEMIR 35 UNIT SQ SCH (10:00)
[2020-11-03] MEDS ORDERED: DELTASONE 10 MG PO SCH (10:00)
[2020-11-03] MEDS ORDERED: NON-FORMULARY ITEM (Naloxegol Oxalate [Movantik] 25 MG) PO SCH (10:00)
[2020-11-03] MEDS ORDERED: Pepcid 20 MG VIAL IV SCH (10:00)
[2020-11-03] MEDS ORDERED: FERROUS FUMARATE 324 MG PO SCH (10:00)
[2020-11-03] MEDS: BUMEX 1 MG PO SCH (10:01)
[2020-11-03] MEDS: Lantus Insulin SQ SCH ×2 (10:02→21:05)
[2020-11-03] MEDS: ENOXAPARIN SODIUM SQ SCH (10:02)
[2020-11-03] MEDS: Colace 100 MG PO SCH (10:25)
[2020-11-03] MEDS ORDERED: LEVOFLOXACIN 750MG/150ML D5W 750 MG/150 ML BAG IV SCH (20:00)
[2020-11-03] MEDS: REMDESIVIR 100 MG in Sodium Chloride 0.9% 100 ML BAG 100 ML IV SCH (21:08)
[2020-11-04] MEDS: MORPHINE SULFATE 2 MG INJ IV PRN ×4 (03:06→21:57)
[2020-11-04 05:04] LABS: Hematocrit 25.2 % (42-50); Hemoglobin 7.2 gm/dl (12.5-18.0); Mean Cell Volume 98.8 fl (78-100); Mean Corpuscular Hemoglobin 28.2 pg (26-32); Mean Corpuscular Hgb Concent. 28.6 g/dl (32-36); Mean Platelet Volume 8.8 fl (7.5-11.0); Platelet Count 222 K/mm3 (150-450); Red Blood Count 2.55 M/mm3 (4.1-5.6); Red Cell Distribution Width 14.4 % (11.5-14.0); White Blood Count 10.4 K/mm3 (4.0-10.5)
[2020-11-04 06:04] LABS: ALBUMIN 3.3 g/dL (3.5-5.0); ALKALINE PHOSPHATASE 47 U/L (38-126); BILIRUBIN,TOTAL < 0.10 mg/dL (0.2-1.3); BLOOD UREA NITROGEN 27 mg/dL (9-20); CHLORIDE 96 mmol/L (98-107); Calcium 8.5 mg/dL (8.4-10.2); Carbon Dioxide 38 mmol/L (22-30); Creatinine 1 0.61 mg/dL (0.66-1.25); EST GLOMERULAR FILTRATION RATE > 60.0 ML/MIN; Glucose 129 mg/dL (74-106); Potassium 3.7 mmol/L (3.5-5.1); SGOT/AST 16 U/L (17-59); SGPT/ALT 14 U/L (0-50); SODIUM 139 mmol/L (137-145); Total Protein 6.5 g/dL (6.3-8.2)
[2020-11-04] MEDS: ADVAIR/WIXELLA 250-50 DISKUS 14 DOSE IH SCH ×2 (08:12→19:20)
[2020-11-04] MEDS: BUMEX 1 MG PO SCH (09:17)
[2020-11-04] MEDS: DECADRON 10MG INJ. IV SCH (09:18)
[2020-11-04] MEDS: Coreg 6.25 MG PO SCH ×2 (09:19→21:50)
[2020-11-04] MEDS: FEOSOL 325 MG PO SCH (09:19)
[2020-11-04] MEDS: Cymbalta 30 MG Capsule PO SCH ×2 (09:19→21:50)
[2020-11-04] MEDS: Pepcid 20 MG PO SCH ×2 (09:19→21:55)
[2020-11-04] MEDS: Lantus Insulin SQ SCH ×2 (09:19→21:54)
[2020-11-04] MEDS: ENOXAPARIN SODIUM SQ SCH (09:20)
[2020-11-04] MEDS: Colace 100 MG PO SCH (09:22)
[2020-11-04] MEDS: BUSPAR 5 MG PO SCH ×2 (09:22→21:49)
[2020-11-04] MEDS: Neurontin 400 MG PO SCH ×3 (09:25→21:55)
[2020-11-04] MEDS ORDERED: SENOKOT 8.6 MG PO SCH (10:00)
[2020-11-04] MEDS ORDERED: Sodium Chloride 0.9% 500 ML 500 ML IV SCH (10:00)
[2020-11-04 11:40] LABS: ABO TYPING O; Antibody Screen NEGATIVE (NEGATIVE); RH TYPING POSITIVE
[2020-11-04 11:41] LABS: CROSS MATCH (PRBC) COMPATIBLE (COMPATIBLE)
[2020-11-04] MEDS: HUMALOG SQ PRN ×2 (16:02→21:57)
[2020-11-04 19:35] LABS: Hematocrit 32.2 % (42-50)
[2020-11-04 19:36] LABS: Hemoglobin 9.8 gm/dl (12.5-18.0)
[2020-11-04] MEDS: Flomax 0.4 MG PO SCH (21:54)
[2020-11-04] MEDS: REMDESIVIR 100 MG in Sodium Chloride 0.9% 100 ML BAG 100 ML IV SCH (21:56)
[2020-11-04] MEDS: ZOCOR 20MG PO SCH (21:56)
[2020-11-05 05:02] LABS: Hematocrit 30.6 % (42-50); Hemoglobin 9.1 gm/dl (12.5-18.0); Mean Cell Volume 95.6 fl (78-100); Mean Corpuscular Hemoglobin 28.4 pg (26-32); Mean Corpuscular Hgb Concent. 29.7 g/dl (32-36); Mean Platelet Volume 8.8 fl (7.5-11.0); Platelet Count 174 K/mm3 (150-450); Red Cell Distribution Width 15.6 % (11.5-14.0); White Blood Count 7.9 K/mm3 (4.0-10.5)
[2020-11-05 05:38] LABS: INR 2.86 (0.8-3.0); PROTIME 33.8 SECONDS (9.4-12.5)
[2020-11-05 05:50] LABS: ALBUMIN 3.2 g/dL (3.5-5.0); ALKALINE PHOSPHATASE 47 U/L (38-126); ANION GAP 8.1 MEQ/L (5-15); BLOOD UREA NITROGEN 19 mg/dL (9-20); CHLORIDE 100 mmol/L (98-107); Calcium 8.3 mg/dL (8.4-10.2); Carbon Dioxide 35 mmol/L (22-30); Creatinine 1 0.51 mg/dL (0.66-1.25); EST GLOMERULAR FILTRATION RATE > 60.0 ML/MIN; Glucose 81 mg/dL (74-106); Potassium 3.8 mmol/L (3.5-5.1); SGOT/AST 16 U/L (17-59); SGPT/ALT 13 U/L (0-50); SODIUM 139 mmol/L (137-145); Total Protein 6.4 g/dL (6.3-8.2)
[2020-11-05] MEDS: ADVAIR/WIXELLA 250-50 DISKUS 14 DOSE IH SCH (07:45)
[2020-11-05] MEDS: DECADRON 10MG INJ. IV SCH (09:44)
[2020-11-05] MEDS: FEOSOL 325 MG PO SCH (09:45)
[2020-11-05] MEDS: Cymbalta 30 MG Capsule PO SCH (09:45)
[2020-11-05] MEDS: Pepcid 20 MG PO SCH (09:46)
[2020-11-05] MEDS: Zestril 5 MG PO SCH (09:46)
[2020-11-05] MEDS: BUSPAR 5 MG PO SCH (09:46)
[2020-11-05] MEDS: Coreg 6.25 MG PO SCH (09:46)
[2020-11-05] MEDS: BUMEX 1 MG PO SCH (09:47)
[2020-11-05] MEDS: Neurontin 400 MG PO SCH (09:47)
[2020-11-05] MEDS: Lantus Insulin SQ SCH (09:48)
[2020-11-05] MEDS ORDERED: Duragesic 75 MCG Patch TOP SCH (10:00)
[2020-11-05] MEDS: Colace 100 MG PO SCH (10:07)
[2020-11-05 11:34] VITALS: BP 121/66; PULSE 97; O2SAT 95
--- NOTE | 2020-12-19 09:28 | DS ---
ADMISSION DIAGNOSES: 1) COVID pneumonia. 2) Back pain. 3) Coronary artery disease. DISCHARGE DIAGNOSES: 1) COVID PNEUMONIA. 2) BACK PAIN. 3) CORONARY ARTERY DISEASE. HOSPITAL COURSE: The patient was admitted with a positive COVID test, shortness of breath. He also had peripheral neuropathy. The patient had become progressively short of breath, more back pain that is a chronic condition apparently. He has a problem with congestive heart failure, coronary artery disease. His D-dimer was over 1000. He was alert, orientated, responding well to nasal cannula. His hemoglobin dropped to 7 and he was apparently transfused. Post-transfusion he felt good. His O2 came up. His hemoglobin was 9.2. His anticoagulation was stopped. The emergency room doctor started him on Levaquin. I did not see any use for that. He had a low white count. Chest x-ray was typical for COVID and he was positive for COVID. His D-dimer was elevated due to COVID. By 11/05/2020, he was much improved. His breathing was much easier and he was coughing less. He is eating well. He was sent home on his home medications, follow up with his physician in two weeks, to isolate for ten more days. MEDICATIONS: Include gabapentin 400 t.i.d., lisinopril 10 h.s., Buspar 10 b.i.d., Cymbalta 60 mg twice a day, Colace 200 mg q.d., Pepcid 20 mg twice a day, Movantik 25 mg q.d., Flomax 0.4 mg q.d., Advair HFA 2 puffs b.i.d., Pravastatin 40 q.d., carvedilol 6.25 q.d., fentanyl 75 mcg patch every 72 hours, Levemir 35 twice a day, ferrous sulfate 324 mg q.d., Bumex 1 mg q.d., prednisone 10 q.d. ALLERGIES: PENICILLINS. PROGNOSIS: [place] to be good.
== END 2020-11-05 13:18 | disposition home health service (06) | DRG 177 ==
LOC: ED 17:16 → MED SURG 22:58
PROVIDERS: ADMIT Family Medicine; ATTEND Family Medicine
DX: U07.1 COVID-19 (principal); J12.82 Pneumonia due to coronavirus disease 2019; C34.90 Malignant neoplasm of unspecified part of unspecified bronchus or lung; J94.2 Hemothorax; J44.9 Chronic obstructive pulmonary disease, unspecified; M54.9 Dorsalgia, unspecified; I25.10 Atherosclerotic heart disease of native coronary artery without angina pectoris; I10 Essential (primary) hypertension; E78.5 Hyperlipidemia, unspecified; E11.9 Type 2 diabetes mellitus without complications; Z99.81 Dependence on supplemental oxygen; Z79.899 Other long term (current) drug therapy; R53.1 Weakness; E83.42 Hypomagnesemia; Z20.828 Contact with and (suspected) exposure to other viral communicable diseases; F17.200 Nicotine dependence, unspecified, uncomplicated; G62.9 Polyneuropathy, unspecified
CPT/HCPCS: 36000; 36415; 36430; 71045; 71260; 80053; 81001; 82728; 82947; 83540; 83605; 83735; 83880; 84484; 85014; 85018; 85025; 85027; 85045; 85379; 85610; 86850; 86900; 86901; 86922; 87040; 87086; 93005; 93041; 94640; 94762; 96360; 96365; 96367; 96368; 96374; 96375; 99284; 99291; P9016; U0003; J1100; J1642; J1650; J1817; J1940; J1956; J2270; J2930; J3475; A9270-GY

== ENCOUNTER 2020-11-08 07:38 | Emergency (ER) | payer MEDICARE ==
[2020-11-08] MEDS ORDERED: Zithromax 500 MG/ 250 ML NaCl Premix 500 MG/250 ML IVPB IV STA (07:43)
[2020-11-08] MEDS ORDERED: Sodium Chloride 0.9% 1000 ML 1,000 ML IV SCH (07:45)
[2020-11-08] MEDS ORDERED: Lasix 40 MG/4 ML IV ONE (07:49)
[2020-11-08] MEDS ORDERED: Lasix 40 MG/4 ML ONE (07:57)
[2020-11-08] MEDS ORDERED: Sodium Chloride 0.9% 1000 ML 1,000 ML ONE (07:58)
[2020-11-08] MEDS ORDERED: Zithromax 500 MG/ 250 ML NaCl Premix 500 MG/250 ML IVPB IV ONE (07:58)
[2020-11-08] MEDS ORDERED: TORAdol 30 mg Injection IV ONE (08:00)
[2020-11-08] MEDS ORDERED: TORAdol 30 mg Injection ONE (08:01)
--- NOTE | 2020-11-08 08:09 | ERPHSYRPT ---
- History of Present Illness Time Seen by Provider: 11/08/20 07:55 Source: patient Exam Limitations: no limitations Patient Subjective Stated Complaint: PT states "I can't breath." Triage Nursing Assessment: Pt presented alert and oriented X 3, skin pwd Pt able to speak in clear full sentences pt moaning, grunting, unable to sit still. PT slightly short of breath. Physician History: Patient is a 75-year-old white male who presents with a complaint of shortness of breath. Despite being vaccinated the patient does have a history of being positive for Covid was hospitalized here and released 4 days ago the call for shortness of breath came to EMS this morning on 4 L O2 nasal cannula they got his O2 sat up to 97% he is normally on 3% 3 L/min at home. He was administered an albuterol treatment in the ambulance which seemed to help. Timing/Duration: today Cough Quality/Degree: productive cough, sputum Possible Cause: frequent episodes, illness exposure Modifying Factors: Improves With: activity, coughing, oxygen Associated Symptoms: chest pain/soreness, shortness of breath, wheezing Allergies/Adverse Reactions: Penicillins Allergy (Unknown, Verified 11/11/16 07:20) Home Medications: Bumetanide 1 mg [Bumex 1 mg] 1 mg PO QAM 03/03/15 [History] Carvedilol 6.25 mg [Coreg 6.25 MG] 6.25 mg PO BID 03/03/15 [History] Fentanyl 75Mcg Patch [Duragesic 75 MCG Patch] 75 mcg TOP Q72H 03/03/15 [History] Ferrous Fumarate 324 mg PO DAILY 03/03/15 [History] Fluticasone/Salmeterol 115/21* [Advair Hfa 115/21 Mcg Inhaler] 2 inh PO BID 03/03/15 [History] Gabapentin 400 mg [Neurontin 400 MG] 800 mg PO TID 03/03/15 [History] Insulin Detemir [Levemir Flexpen] 35 units SQ BID 03/03/15 [History] Lisinopril 10 mg [Zestril 10 MG] 5 mg PO UD 03/03/15 [History] Pravastatin Sodium 40 mg PO HS 03/03/15 [History] Prednisone 10 mg [Deltasone 10 mg] 10 mg PO DAILY 03/03/15 [History] Buspirone HCl [Buspar] 10 mg PO BID 11/03/16 [History] Duloxetine HCl [Cymbalta] 60 mg PO BID 11/03/16 [History] Docusate Sodium 100 mg [Colace 100 MG] 200 mg PO DAILY 04/05/18 [History] Famotidine 20 mg [Pepcid 20 MG] 20 mg PO BID 11/02/20 [History] Naloxegol Oxalate [Movantik] 25 mg PO DAILY 11/02/20 [History] Tamsulosin HCl 0.4 mg [Flomax 0.4 MG] 0.4 mg PO HS 11/02/20 [History] Hx Tetanus, Diphtheria Vaccination/Date Given: Yes Hx Influenza Vaccination/Date Given: Yes Hx Pneumococcal Vaccination/Date Given: Yes Immunizations Up to Date: Yes Travel Risk - International Travel Have you traveled outside of the country in past 3 weeks: No - Coronavirus Screening Are you exhibiting any of the following symptoms?: Yes Symptoms: Cough: New Onset, Shortness of Breath Close contact with a COVID-19 positive Pt in past 14-21 Days: No - Vaccine Status Have you recieved a Covid-19 vaccination: Yes 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: [employer] - Vaccination Dates Date of 2cond Vaccination (if applicable): 03/2020 - Review of Systems Constitutional: No Fever, No Chills Eyes: No Symptoms Ears, Nose, & Throat: No Symptoms Respiratory: Cough, Dyspnea Cardiac: Chest Pain, No Edema, No Syncope Abdominal/Gastrointestinal: No Abdominal Pain, No Nausea, No Vomiting, No Diarrhea Genitourinary Symptoms: No Dysuria Musculoskeletal: No Back Pain, No Neck Pain Skin: No Rash Neurological: No Dizziness, No Focal Weakness, No Sensory Changes Psychological: No Symptoms Endocrine: No Symptoms All Other Systems: Reviewed and Negative - Past Medical History Pertinent Past Medical History: Yes Neurological History: Peripheral Neuropathy, TIA ENT History: No Pertinent History Cardiac History: Congestive Heart Failure Respiratory History: CHF, COPD, Emphysema, Lung Cancer Endocrine Medical History: Diabetes Type II Musculoskeletal History: Arthritis, Degenerative Disk Disease GI Medical History: Esophageal Disorder, GERD, Hernia History: No Pertinent History Psycho-Social History: Anxiety, Depression Male Reproductive Disorders: No Pertinent History Other Medical History: . - Past Surgical History Past Surgical History: Yes Neuro Surgical History: No Pertinent History Cardiac: Cardiac Stent Respiratory: Lobectomy Gastrointestinal: Cholecystectomy Genitourinary: No Pertinent History Musculoskeletal: No Pertinent History Male Surgical History: No Pertinent History Other Surgical History: hx of multiple i & D to buttocks - Social History Smoking Status: Former smoker How long have you smoked: 45 YEARS Exposure to second hand smoke: No Drug Use: none Patient Lives Alone: No Significant Family History: heart disease - Nursing Vital Signs Nursing Vital Signs: Initial Vital Signs Temperature 97.9 F 11/08/20 07:44 Pulse Rate 112 H 11/08/20 07:44 Respiratory Rate 24 11/08/20 07:44 Blood Pressure 158/102 11/08/20 07:44 O2 Sat by Pulse Oximetry 90 L 11/08/20 07:44 Pain Scale Pain Intensity 6 - Physical Exam General Appearance: moderate distress, alert Eye Exam: PERRL/EOMI, eyes nml inspection Ears, Nose, Throat Exam: normal ENT inspection, TMs normal, pharynx normal, moist mucous membranes Neck Exam: normal inspection, non-tender, supple, full range of motion Respiratory Exam: respiratory distress, airway intact, diminished breath sounds, crackles/rales, rhonchi, wheezing Cardiovascular Exam: regular rate/rhythm, normal heart sounds Gastrointestinal/Abdomen Exam: soft, No tenderness Back Exam: normal inspection, No CVA tenderness, No vertebral tenderness Extremity Exam: normal inspection, normal range of motion Neurologic Exam: alert, oriented x 3, cooperative, normal mood/affect, sensation nml, No motor deficits Skin Exam: normal color, warm, dry, No rash Lymphatic Exam: No adenopathy SpO2 Interpretation: hypoxic SpO2: 93 O2 Delivery: Nasal Cannula (4 L) - Course Nursing assessment & vital signs reviewed: Yes EKG Interpreted by Me: RATE (105), Sinus Tach, NORMAL AXIS, NORMAL INTERVALS, NORMAL QRS, Other (APCs) - Radiology Exams Chest X-ray Interpretation: Interpreted by me, Other (Chest x-ray shows some congestive changes there is been status post right lobectomy with what appears to be some effusion on that side.) Ordered Tests: Active Orders 24 hr Category Date Time Status Technical Aide STAT Care 11/08/20 07:44 Active EKG-ER Only STAT Care 11/08/20 07:43 Active Pace [Catheter-[place] Pace] STAT Care 11/08/20 08:41 Active IV Insertion STAT Care 11/08/20 07:43 Active Oxygen-ED Only Nasal Cannula 4 lpm Care 11/08/20 07:43 Active CHEST 1 VIEW (PORTABLE) Stat Exams 11/08/20 07:44 Taken CTA CHEST W AND/OR WO [CT] Stat Exams 11/08/20 09:17 Ordered BLOOD CULTURE Stat Lab 11/08/20 08:30 Received CBC W DIFF Stat Lab 11/08/20 08:15 Completed CMP Stat Lab 11/08/20 08:30 Completed CULTURE,SPUTUM Stat Lab 11/08/20 08:41 Ordered D-DIMER QUANTITATIVE Stat Lab 11/08/20 08:30 Completed INFLUENZA A+B KAMILLE Stat Lab 11/08/20 08:15 Completed Lactic Acid Stat Lab 11/08/20 07:43 Completed NT PRO BNP Routine Lab 11/08/20 08:30 Completed PROCALCITONIN Stat Lab 11/08/20 08:30 Completed PROTIME WITH INR Stat Lab 11/08/20 08:30 Completed TROPONIN Q3H Lab 11/08/20 08:30 Completed TROPONIN Q3H Lab 11/08/20 11:00 Ordered TROPONIN Q3H Lab 11/08/20 14:00 Ordered TROPONIN Q3H Lab 11/08/20 17:00 Ordered TROPONIN Q3H Lab 11/08/20 20:00 Ordered TROPONIN Q3H Lab 11/08/20 23:00 Ordered UA W/RFX UR CULTURE Stat Lab 11/08/20 08:41 Completed Medication Summary Generic Name Dose Route Start Last Admin Trade Name Freq PRN Reason Stop Dose Admin Sodium Chloride 1,000 mls @ 50 mls/hr 11/08/20 07:45 11/08/20 08:01 Sodium Chloride 0.9% 1000 Ml IV 12/08/20 07:44 50 mls/hr .Q20H REZA Administration Discontinued Medications Generic Name Dose Route Start Last Admin Trade Name Freq PRN Reason Stop Dose Admin Furosemide 40 mg 11/08/20 07:49 11/08/20 08:00 Lasix 40 Mg/4 Ml IV 11/08/20 07:50 40 mg STAT ONE Administration Furosemide Confirm 11/08/20 07:57 Lasix 40 Mg/4 Ml Administered 11/08/20 07:58 Dose 40 mg .ROUTE .STK-MED ONE Azithromycin 500 mg in 250 mls @ 250 mls/hr 11/08/20 07:43 11/08/20 08:01 Zithromax 500 Mg/ 250 Ml Nacl Premix IV 11/08/20 08:42 250 mls/hr STAT STA 250 mls/hr Administration Azithromycin Confirm 11/08/20 07:58 Zithromax 500 Mg/ 250 Ml Nacl Premix Administered 11/08/20 07:59 Dose 500 mg in 250 mls @ ud IV .STK-MED ONE Ketorolac Tromethamine 30 mg 11/08/20 08:00 11/08/20 08:02 Toradol 30 Mg Injection IV 11/08/20 08:01 30 mg STAT ONE Administration Ketorolac Tromethamine Confirm 11/08/20 08:01 Toradol 30 Mg Injection Administered 11/08/20 08:02 Dose 30 mg .ROUTE .STK-MED ONE Lab/Rad Data: Laboratory Result Diagrams 11/08/20 08:15 11/08/20 08:30 Laboratory Results 11/08/20 11/08/20 11/08/20 Range/Units 08:41 08:30 08:30 WBC (4.0-10.5) K/mm3 RBC (4.1-5.6) M/mm3 Hgb (12.5-18.0) gm/dl Hct (42-50) % MCV (78-100) fl MCH (26-32) pg MCHC (32-36) g/dl RDW (11.5-14.0) % Plt Count (150-450) K/mm3 MPV (7.5-11.0) fl Gran % (36.0-66.0) % Eos # (Auto) (0-0.5) Absolute Lymphs (auto) (1.0-4.6) Absolute Monos (auto) (0.0-1.3) Lymphocytes % (24.0-44.0) % Monocytes % (0.0-12.0) % Eosinophils % (0.00-5.0) % Basophils % (0.0-0.4) % Absolute Granulocytes (1.4-6.9) Basophils # (0-0.4) PT (9.4-12.5) SECONDS INR (0.8-3.0) D-Dimer (215-500) ng/mL Sodium (137-145) mmol/L Potassium (3.5-5.1) mmol/L Chloride (98-107) mmol/L Carbon Dioxide (22-30) mmol/L Anion Gap (5-15) MEQ/L BUN (9-20) mg/dL Creatinine (0.66-1.25) mg/dL Estimated GFR ML/MIN Glucose (74-106) mg/dL Lactic Acid (0.4-2.0) Calcium (8.4-10.2) mg/dL Total Bilirubin (0.2-1.3) mg/dL AST (17-59) U/L ALT (0-50) U/L Alkaline Phosphatase (38-126) U/L Troponin I < 0.012 (0.000-0.034) ng/mL NT-Pro-B Natriuret Pep 276 (0-900) pg/mL Serum Total Protein (6.3-8.2) g/dL Albumin (3.5-5.0) g/dL Procalcitonin 0.066 (0.030-0.080) ng/mL Urine Color MARIN (YELLOW) Urine Appearance SLIGHTLY CLOUDY (CLEAR) Urine pH 6.0 (5-6) Ur Specific Apollo 1.024 (1.005-1.025) Urine Protein 100 (Negative) Urine Ketones NEGATIVE (NEGATIVE) Urine Blood NEGATIVE (0-5) [place]/ul Urine Nitrite NEGATIVE (NEGATIVE) Urine Bilirubin NEGATIVE (NEGATIVE) Urine Urobilinogen 4 (0-1) mg/dL Ur Leukocyte Esterase NEGATIVE (NEGATIVE) Urine WBC (Auto) 0-2 (0-5) /HPF Urine RBC (Auto) 0-2 (0-2) /HPF U Epithel Cells (Auto) NONE (FEW) /HPF Urine Bacteria (Auto) NONE (NEGATIVE) /HPF Urine Mucus (Auto) SLIGHT (NEGATIVE) /HPF Urine Culture Reflexed NO (NO) Urine Glucose >=500 (NEGATIVE) mg/dL Influenza Type A Ag (NEGATIVE) Influenza Type B Ag (NEGATIVE) Slides for Path Review 11/08/20 11/08/20 11/08/20 Range/Units 08:30 08:30 08:15 WBC 6.8 (4.0-10.5) K/mm3 RBC 4.03 L (4.1-5.6) M/mm3 Hgb 11.3 L (12.5-18.0) gm/dl Hct 38.1 L (42-50) % MCV 94.5 (78-100) fl MCH 28.0 (26-32) pg MCHC 29.7 L (32-36) g/dl RDW 14.5 H (11.5-14.0) % Plt Count 196 (150-450) K/mm3 MPV 8.4 (7.5-11.0) fl Gran % 81.8 H (36.0-66.0) % Eos # (Auto) 0.21 (0-0.5) Absolute Lymphs (auto) 0.35 L (1.0-4.6) Absolute Monos (auto) 0.66 (0.0-1.3) Lymphocytes % 5.1 L (24.0-44.0) % Monocytes % 9.7 (0.0-12.0) % Eosinophils % 3.1 (0.00-5.0) % Basophils % 0.3 (0.0-0.4) % Absolute Granulocytes 5.59 (1.4-6.9) Basophils # 0.02 (0-0.4) PT 12.9 H (9.4-12.5) SECONDS INR 1.09 (0.8-3.0) D-Dimer 1656 H* (215-500) ng/mL Sodium 141 (137-145) mmol/L Potassium 3.8 (3.5-5.1) mmol/L Chloride 96 L (98-107) mmol/L Carbon Dioxide 37 H (22-30) mmol/L Anion Gap 11.6 (5-15) MEQ/L BUN 17 (9-20) mg/dL Creatinine 0.64 L (0.66-1.25) mg/dL Estimated GFR > 60.0 ML/MIN Glucose 74 (74-106) mg/dL Lactic Acid (0.4-2.0) Calcium 9.0 (8.4-10.2) mg/dL Total Bilirubin 0.30 (0.2-1.3) mg/dL AST 18 (17-59) U/L ALT 15 (0-50) U/L Alkaline Phosphatase 63 (38-126) U/L Troponin I (0.000-0.034) ng/mL NT-Pro-B Natriuret Pep (0-900) pg/mL Serum Total Protein 7.0 (6.3-8.2) g/dL Albumin 3.5 (3.5-5.0) g/dL Procalcitonin (0.030-0.080) ng/mL Urine Color (YELLOW) Urine Appearance (CLEAR) Urine pH (5-6) Ur Specific Apollo (1.005-1.025) Urine Protein (Negative) Urine Ketones (NEGATIVE) Urine Blood (0-5) [place]/ul Urine Nitrite (NEGATIVE) Urine Bilirubin (NEGATIVE) Urine Urobilinogen (0-1) mg/dL Ur Leukocyte Esterase (NEGATIVE) Urine WBC (Auto) (0-5) /HPF Urine RBC (Auto) (0-2) /HPF U Epithel Cells (Auto) (FEW) /HPF Urine Bacteria (Auto) (NEGATIVE) /HPF Urine Mucus (Auto) (NEGATIVE) /HPF Urine Culture Reflexed (NO) Urine Glucose (NEGATIVE) mg/dL Influenza Type A Ag (NEGATIVE) Influenza Type B Ag (NEGATIVE) Slides for Path Review YES 11/08/20 11/08/20 Range/Units 08:15 07:43 WBC (4.0-10.5) K/mm3 RBC (4.1-5.6) M/mm3 Hgb (12.5-18.0) gm/dl Hct (42-50) % MCV (78-100) fl MCH (26-32) pg MCHC (32-36) g/dl RDW (11.5-14.0) % Plt Count (150-450) K/mm3 MPV (7.5-11.0) fl Gran % (36.0-66.0) % Eos # (Auto) (0-0.5) Absolute Lymphs (auto) (1.0-4.6) Absolute Monos (auto) (0.0-1.3) Lymphocytes % (24.0-44.0) % Monocytes % (0.0-12.0) % Eosinophils % (0.00-5.0) % Basophils % (0.0-0.4) % Absolute Granulocytes (1.4-6.9) Basophils # (0-0.4) PT (9.4-12.5) SECONDS INR (0.8-3.0) D-Dimer (215-500) ng/mL Sodium (137-145) mmol/L Potassium (3.5-5.1) mmol/L Chloride (98-107) mmol/L Carbon Dioxide (22-30) mmol/L Anion Gap (5-15) MEQ/L BUN (9-20) mg/dL Creatinine (0.66-1.25) mg/dL Estimated GFR ML/MIN Glucose (74-106) mg/dL Lactic Acid 0.9 (0.4-2.0) Calcium (8.4-10.2) mg/dL Total Bilirubin (0.2-1.3) mg/dL AST (17-59) U/L ALT (0-50) U/L Alkaline Phosphatase (38-126) U/L Troponin I (0.000-0.034) ng/mL NT-Pro-B Natriuret Pep (0-900) pg/mL Serum Total Protein (6.3-8.2) g/dL Albumin (3.5-5.0) g/dL Procalcitonin (0.030-0.080) ng/mL Urine Color (YELLOW) Urine Appearance (CLEAR) Urine pH (5-6) Ur Specific Apollo (1.005-1.025) Urine Protein (Negative) Urine Ketones (NEGATIVE) Urine Blood (0-5) [place]/ul Urine Nitrite (NEGATIVE) Urine Bilirubin (NEGATIVE) Urine Urobilinogen (0-1) mg/dL Ur Leukocyte Esterase (NEGATIVE) Urine WBC (Auto) (0-5) /HPF Urine RBC (Auto) (0-2) /HPF U Epithel Cells (Auto) (FEW) /HPF Urine Bacteria (Auto) (NEGATIVE) /HPF Urine Mucus (Auto) (NEGATIVE) /HPF Urine Culture Reflexed (NO) Urine Glucose (NEGATIVE) mg/dL Influenza Type A Ag NEGATIVE (NEGATIVE) Influenza Type B Ag NEGATIVE (NEGATIVE) Slides for Path Review - Progress Progress: unchanged Air Movement: fair Progress Note: 11/08/20 10:02 After complete work-up of the patient Dr. Lyon who is on-call for [facility] unit today reviewed the labs and x-rays and EKG and decided that he is okay to go home based on the fact that his right lung lobectomy was done for cancer and at this point he has refused any further treatment as long as he has oxygen at home Dr. Lyon is desirous of him returning there. Did say for us to inform the family and the that he will work to get him into rehab if there is an interest on Tuesday. Blood Culture(s) Obtained: No Antibiotics given: Yes Discussed with DrMojgan: Lala - Departure Departure Disposition: Home Clinical Impression: COVID-19, COPD (chronic obstructive pulmonary disease), Lung cancer Condition: Fair Critical Care Time: No Referrals: SYLWIA FRASER MD [Primary Care Provider] - Instructions: Chronic Obstructive Pulmonary Disease, Shortness of Breath (Dyspnea) (DC)
[2020-11-08 08:37] LABS: Absolute Neutrophil Ct (ANC) 5.59 (1.4-6.9); BASOPHIL % 0.3 % (0.0-0.4); Basophil (Absolute #) 0.02 (0-0.4); Eosinophil % 3.1 % (0.00-5.0); Eosinophil (Absolute #) 0.21 (0-0.5); Hematocrit 38.1 % (42-50); Hemoglobin 11.3 gm/dl (12.5-18.0); Lymphocyte (Absolute #) 0.35 (1.0-4.6); Lymphocytes % 5.1 % (24.0-44.0); Mean Cell Volume 94.5 fl (78-100); Mean Corpuscular Hgb Concent. 29.7 g/dl (32-36); Mean Platelet Volume 8.4 fl (7.5-11.0); Monocyte (Absolute #) 0.66 (0.0-1.3); Monocytes % 9.7 % (0.0-12.0); Neutrophil % 81.8 % (36.0-66.0); Platelet Count 196 K/mm3 (150-450); Red Blood Count 4.03 M/mm3 (4.1-5.6); Red Cell Distribution Width 14.5 % (11.5-14.0); White Blood Count 6.8 K/mm3 (4.0-10.5)
[2020-11-08 08:45] LABS: INR 1.09 (0.8-3.0); PROTIME 12.9 SECONDS (9.4-12.5)
[2020-11-08 09:09] LABS: ALBUMIN 3.5 g/dL (3.5-5.0); ALKALINE PHOSPHATASE 63 U/L (38-126); ANION GAP 11.6 MEQ/L (5-15); BLOOD UREA NITROGEN 17 mg/dL (9-20); CHLORIDE 96 mmol/L (98-107); Carbon Dioxide 37 mmol/L (22-30); Creatinine 1 0.64 mg/dL (0.66-1.25); EST GLOMERULAR FILTRATION RATE > 60.0 ML/MIN; Glucose 74 mg/dL (74-106); Potassium 3.8 mmol/L (3.5-5.1); SGOT/AST 18 U/L (17-59); SGPT/ALT 15 U/L (0-50); SODIUM 141 mmol/L (137-145)
[2020-11-08 09:21] LABS: NT PRO BNP 276 pg/mL (0-900); TROPONIN < 0.012 ng/mL (0.000-0.034)
[2020-11-08 09:27] LABS: Appearance SLIGHTLY CLOUDY (CLEAR); Bilirubin NEGATIVE (NEGATIVE); Blood NEGATIVE Ery/ul (0-5); Glucose >=500 mg/dL (NEGATIVE); Ketones NEGATIVE (NEGATIVE); Leukocyte Esterase NEGATIVE (NEGATIVE); Mucus SLIGHT /HPF (NEGATIVE); Nitrite NEGATIVE (NEGATIVE); Protein,Urine Dip 100 (Negative); RBC 0-2 /HPF (0-2); Specific Gravity 1.024 (1.005-1.025); Urobilinogen 4 mg/dL (0-1); WBC 0-2 /HPF (0-5)
[2020-11-08 09:30] LABS: INFLUENZA A NEGATIVE (NEGATIVE); INFLUENZA B NEGATIVE (NEGATIVE)
[2020-11-08 09:35] LABS: Slide Review 1 YES
[2020-11-08 11:21] VITALS: BP 110/65; PULSE 106; O2SAT 96
--- NOTE | 2020-11-08 19:43 | XRAY ---
Indication: Short of breath. Status post right lobectomy. Positive Covid 19. Comparison: November 02, 2020. Portable chest again demonstrates right hemithorax postsurgical changes with pleural effusion/thickening, cardiomegaly, and right Port-A-Cath. Increasing vascular congestion and small left effusion concerning for cardiac decompensation versus fluid overload. Superimposed pneumonia not completely excluded.
== END 2020-11-08 11:30 | disposition home or self-care (01) ==
LOC: ED 07:38
DX: U07.1 COVID-19 (principal); B34.2 Coronavirus infection, unspecified; J44.9 Chronic obstructive pulmonary disease, unspecified; C34.91 Malignant neoplasm of unspecified part of right bronchus or lung; I50.9 Heart failure, unspecified; Z86.73 Personal history of transient ischemic attack (TIA), and cerebral infarction without residual deficits; G62.9 Polyneuropathy, unspecified
CPT/HCPCS: 36000; 36415; 51702; 71045; 80053; 81001; 83605; 83880; 84145; 84484; 85025; 85379; 85610; 87040; 87400; 93005; 93041; 96365; 96374; 96375; 99285; J0456; J1885; J1940